=== PATIENT | male | born 1955 | race Caucasian/White ===

== ENCOUNTER 2018-06-07 00:58 | Emergency (ER) | payer OTHER ==
[2018-06-07] MEDS ORDERED: HYDROCODONE/CHLORPHEN 5 ML/OSYR ONE (01:42)
--- NOTE | 2018-06-07 02:27 | EDPHYS ---
Physician Documentation [facility] Name: Seng Godfrey Age: 63 yrs Sex: Male : 1955 Arrival Date: 06/07/2018 Time: 01:01 Bed 30 Private MD: Aron Gonzalez S ED Physician Cisco Torres HPI: 06/07 01:25 This 63 yrs old Male presents to ER via Ambulatory with complaints of Cough. jr8 01:25 The patient or guardian reports cough, that is intermittent, described as mild, with no jr8 sputum. Onset: The symptoms/episode began/occurred gradually, 2 day(s) ago. Severity of symptoms: At their worst the symptoms were mild, in the emergency department the symptoms are unchanged. Modifying factors: The symptoms are alleviated by nothing, the symptoms are aggravated by nothing. Associated signs and symptoms: Pertinent positives: rhinorrhea. The patient has not experienced similar symptoms in the past. The patient has not recently seen a physician. Historical: - Allergies: 01:20 Talwin; rv - Home Meds: 01:20 Seroquel 100 mg Oral tab [Active]; rv - PMHx: 01:20 chronic back pain; rv - PSHx: 01:20 None; rv - Immunization history:: Adult Immunizations up to date, Flu vaccine is up to date. - Social history:: Smoking status: Patient uses tobacco products, STOPPED 6 MONTHS AGO.. - Ebola Screening: : Patient negative for fever greater than or equal to 101.5 degrees Fahrenheit, and additional compatible Ebola Virus Disease symptoms Patient denies exposure to infectious person Patient denies travel to an Ebola-affected area in the 21 days before illness onset. ROS: 01:25 Eyes: Negative for injury, pain, redness, and discharge, Neck: Negative for injury, jr8 pain, and swelling, Cardiovascular: Negative for chest pain, palpitations, and edema, Abdomen/GI: Negative for abdominal pain, nausea, vomiting, diarrhea, and constipation, Back: Negative for injury and pain, MS/Extremity: Negative for injury and deformity, Skin: Negative for injury, rash, and discoloration, Neuro: Negative for headache, weakness, numbness, tingling, and seizure. 01:25 ENT: Positive for rhinorrhea. 01:25 Respiratory: Positive for cough, Negative for shortness of breath, sputum production, wheezing. Exam: 01:25 Eyes: Pupils equal round and reactive to light, extra-ocular motions intact. Lids and jr8 lashes normal. Conjunctiva and sclera are non-icteric and not injected. Cornea within normal limits. Periorbital areas with no swelling, redness, or edema. ENT: Nares patent. No nasal discharge, no septal abnormalities noted. Tympanic membranes are normal and external auditory canals are clear. Oropharynx with no redness, swelling, or masses, exudates, or evidence of obstruction, uvula midline. Mucous membranes moist. Neck: Trachea midline, no thyromegaly or masses palpated, and no cervical lymphadenopathy. Supple, full range of motion without nuchal rigidity, or vertebral point tenderness. No Meningismus. Cardiovascular: Regular rate and rhythm with a normal S1 and S2. No gallops, murmurs, or rubs. Normal PMI, no JVD. No pulse deficits. Respiratory: Lungs have equal breath sounds bilaterally, clear to auscultation and percussion. No rales, rhonchi or wheezes noted. No increased work of breathing, no retractions or nasal flaring. Abdomen/GI: Soft, non-tender, with normal bowel sounds. No distension or tympany. No guarding or rebound. No evidence of tenderness throughout. Back: No spinal tenderness. No costovertebral tenderness. Full range of motion. Skin: Warm, dry with normal turgor. Normal color with no rashes, no lesions, and no evidence of cellulitis. MS/ Extremity: Pulses equal, no cyanosis. Neurovascular intact. Full, normal range of motion. Neuro: Awake and alert, GCS 15, oriented to person, place, time, and situation. Cranial nerves II-XII grossly intact. Motor strength 5/5 in all extremities. Sensory grossly intact. Cerebellar exam normal. Normal gait. Vital Signs: 01:27 BP 112 / 72; Pulse 57; Resp 16; Temp 98(O); Pulse Ox 99% ; Weight 89.81 kg (R); rv 02:34 BP 101 / 68; Pulse 55; Resp 16; Pulse Ox 99% on R/A; rv MDM: 01:08 Patient medically screened. jr8 01:08 Patient medically screened. jr8 01:25 Data reviewed: vital signs, nurses notes, radiologic studies, plain films. Data jr8 interpreted: Pulse oximetry: on room air is 100 %. Interpretation: normal. Counseling: I had a detailed discussion with the patient and/or guardian regarding: the historical points, exam findings, and any diagnostic results supporting the discharge/admit diagnosis, radiology results, the need for outpatient follow up, a family practitioner, to return to the emergency department if symptoms worsen or persist or if there are any questions or concerns that arise at home. 06/07 01:25 Order name: XRAY Chest (1 view) jr8 Administered Medications: 01:37 Drug: Tussionex Pennkinetic ER 5 ml Route: PO; rv 02:34 Follow up: Response: Marked relief of symptoms rv Disposition: 15:53 Co-signature as Attending Physician, Cisco Torres MD I agree with the assessment and nathanael plan of care. Disposition: 06/07/18 02:26 Discharged to Home. Impression: Cough. - Condition is Stable. - Discharge Instructions: Cough, Adult. - Prescriptions for Guaifenesin AC 10- 100 mg/5 mL Oral Liquid - take 10 milliliter by ORAL route every 4 hours As needed; 240 milliliter. - Medication Reconciliation Form, Thank You Letter, Antibiotic Education, Prescription Opioid Use form. - Follow up: Aron Gonzalez MD; When: 1 week; Reason: Recheck today's complaints, Continuance of care, Re-evaluation by your physician. - Problem is new. - Symptoms have improved. Signatures: Dispatcher [employer] EDMA Cisco Torres MD MD cha Roszak, Josh, PA PA jr8 Will Michael, RN RN rv Corrections: (The following items were deleted from the chart) 02:35 02:26 06/07/2018 02:26 Discharged to Home. Impression: Cough. Condition is Stable. rv Forms are Medication Reconciliation Form, Thank You Letter, Antibiotic Education, Prescription Opioid Use. Follow up: Aron Gonzalez; When: 1 week; Reason: Recheck today's complaints, Continuance of care, Re-evaluation by your physician. Problem is new. Symptoms have improved. jr8
--- NOTE | 2018-06-07 02:27 | ER ---
Nurse's Notes [facility] Name: Seng Godfrey Age: 63 yrs Sex: Male : 1955 Arrival Date: 06/07/2018 Time: 01:01 Bed 30 Private MD: Aron Gonzalez S Diagnosis: Cough Presentation: 06/07 01:18 Presenting complaint: Patient states: PATIENT STATES: COUGH AND CONGESTION STARTED rv THREE DAYS AGO. DENIES FEVER. Transition of care: patient was not received from another setting of care. Onset of symptoms was June 04, 2018 at 08:00. Risk Assessment: Do you want to hurt yourself or someone else? Patient reports no desire to harm self or others. Initial Sepsis Screen: Does the patient meet any 2 criteria? No. Patient's initial sepsis screen is negative. Does the patient have a suspected source of infection? No. Patient's initial sepsis screen is negative. Care prior to arrival: None. 01:18 Method Of Arrival: Ambulatory rv 01:18 Acuity: MAU 4 rv Historical: - Allergies: 01:20 Talwin; rv - Home Meds: 01:20 Seroquel 100 mg Oral tab [Active]; rv - PMHx: 01:20 chronic back pain; rv - PSHx: 01:20 None; rv - Immunization history:: Adult Immunizations up to date, Flu vaccine is up to date. - Social history:: Smoking status: Patient uses tobacco products, STOPPED 6 MONTHS AGO.. - Ebola Screening: : Patient negative for fever greater than or equal to 101.5 degrees Fahrenheit, and additional compatible Ebola Virus Disease symptoms Patient denies exposure to infectious person Patient denies travel to an Ebola-affected area in the 21 days before illness onset. Screenin:29 Abuse screen: Denies threats or abuse. Denies injuries from another. Nutritional rv screening: No deficits noted. Tuberculosis screening: No symptoms or risk factors identified. Fall Risk None identified. Assessment: 01:27 General: Appears in no apparent distress. comfortable, Behavior is calm, cooperative. rv Pain: Denies pain. Neuro: Level of Consciousness is awake, alert, obeys commands, Oriented to person, place, time, situation. Cardiovascular: Capillary refill < 3 seconds. Respiratory: Reports cough that is non-productive, Airway is patent. GI: No signs and/or symptoms were reported involving the gastrointestinal system. : No signs and/or symptoms were reported regarding the genitourinary system. EENT: No signs and/or symptoms were reported regarding the EENT system. Derm: Skin is intact. Musculoskeletal: No signs and/or symptoms reported regarding the musculoskeletal system. Vital Signs: 01:27 BP 112 / 72; Pulse 57; Resp 16; Temp 98(O); Pulse Ox 99% ; Weight 89.81 kg (R); rv 02:34 BP 101 / 68; Pulse 55; Resp 16; Pulse Ox 99% on R/A; rv ED Course: 01:01 Patient arrived in ED. es 01:03 Aron Gonzalez MD is Private Physician. es 01:08 Per[facility] Rockwell [facility]. jr8 01:08 Cisco Torres MD is Attending Physician. jr8 01:19 Triage completed. rv 01:29 Arm band placed on right wrist. rv 01:29 Patient has correct armband on for positive identification. Bed in low position. Call rv light in reach. Side rails up X 1. Pulse ox on. NIBP on. 02:19 X-ray completed. Portable x-ray completed in exam room. Patient tolerated procedure kw well. 02:21 XRAY Chest (1 view) In Process Unspecified. EDMS 02:26 Aron Gonzalez MD is Referral Physician. jr8 02:34 No provider procedures requiring assistance completed. Patient did not have IV access rv during this emergency room visit. Administered Medications: 01:37 Drug: Tussionex Pennkinetic ER 5 ml Route: PO; rv 02:34 Follow up: Response: Marked relief of symptoms rv Outcome: 02:26 Discharge ordered by . jr8 02:35 Discharged to home ambulatory. rv 02:35 Condition: good 02:35 Discharge instructions given to patient, Instructed on discharge instructions, follow up and referral plans. medication usage, Demonstrated understanding of instructions, follow-up care, medications, Prescriptions given X 1. 02:35 Patient left the ED. rv Signatures: Dispatcher [employer] EDMS Adriana Daniels Kimberlee kw Roszak, Josh, PA PA jr8 Will Michael RN RN rv
[2018-06-07 02:52] VITALS: TEMP 98; O2SAT 99
[2018-06-07 02:54] VITALS: BP 101/68
--- NOTE | 2018-06-07 08:36 | RAD REPORT ---
EXAM DESCRIPTION: Ronnell Single View06/07/2018 2:22 am CLINICAL HISTORY: Cough COMPARISON: 2017 FINDINGS: The lungs appear clear of acute infiltrate. The heart is normal size IMPRESSION: No acute abnormalities displayed
== END 2018-06-07 02:35 | disposition home or self-care (01) ==
LOC: ER 00:58
DX: R05 Cough (principal); Z88.8 Allergy status to other drugs, medicaments and biological substances
CPT/HCPCS: 71045; 99284

== ENCOUNTER 2018-09-17 16:39 | Emergency (ER) | payer OTHER ==
--- OUTSIDE RECORDS SUMMARY | 2018-09-17 16:40 | XMS REPORT ---
:1955 [facility] Address [address] [place] [address] [address] [place] [address] Care Team Providers Name Role Phone Unavailable Unavailable Unavailable Problems This patient has no known problems. Allergies, Adverse Reactions, Alerts This patient has no known allergies or adverse reactions. Medications This patient has no known medications.
--- NOTE | 2018-09-17 17:07 | EDPHYS ---
Physician Documentation [facility] Name: Seng Godrfey Age: 63 yrs Sex: Male : 1955 Arrival Date: 09/17/2018 Time: 16:40 Bed Treatment Private MD: rAon Gonzalez S ED Physician Cisco Torres HPI: 09/17 17:05 This 63 yrs old Male presents to ER via Ambulatory with complaints of Finger kb Injury. 17:05 The patient has a laceration related to: cleaning and cut thumb on a broken plate kb occurred at home, and there are no complicating factors. The injury was accidental. The laceration(s) is(are) located on the dorsal aspect of distal phalanx of left thumb. Onset: The symptoms/episode began/occurred just prior to arrival. Associated signs and symptoms: Pertinent positives: heavy bleeding, Pertinent negatives: deformity, dizziness, loss of consciousness, numbness distal to injury, suspected foreign body. The patient has not experienced similar symptoms in the past. The patient has not recently seen a physician. Historical: - Allergies: 16:51 Talwin; tw2 - PMHx: 16:51 chronic back pain; tw2 - PSHx: 16:51 None; tw2 - Immunization history:: Last tetanus immunization: unknown. - Social history:: Smoking status: . - Ebola Screening: : Patient denies travel to an Ebola-affected area in the 21 days before illness onset. ROS: 17:04 Constitutional: Negative for fever, chills, and weight loss, Cardiovascular: Negative kb for chest pain, palpitations, and edema, Respiratory: Negative for shortness of breath, cough, wheezing, and pleuritic chest pain, Abdomen/GI: Negative for abdominal pain, nausea, vomiting, diarrhea, and constipation, MS/Extremity: Negative for injury and deformity, Neuro: Negative for headache, weakness, numbness, tingling, and seizure. 17:04 Skin: Positive for avulsion, of the dorsal aspect of distal phalanx of left thumb. Exam: 17:04 Constitutional: This is a well developed, well nourished patient who is awake, alert, kb and in no acute distress. Head/Face: Normocephalic, atraumatic. Neck: Trachea midline, no thyromegaly or masses palpated, and no cervical lymphadenopathy. Supple, full range of motion without nuchal rigidity, or vertebral point tenderness. No Meningismus. Chest/axilla: Normal chest wall appearance and motion. Nontender with no deformity. No lesions are appreciated. Cardiovascular: Regular rate and rhythm with a normal S1 and S2. No gallops, murmurs, or rubs. Normal PMI, no JVD. No pulse deficits. Respiratory: Lungs have equal breath sounds bilaterally, clear to auscultation and percussion. No rales, rhonchi or wheezes noted. No increased work of breathing, no retractions or nasal flaring. Abdomen/GI: Soft, non-tender, with normal bowel sounds. No distension or tympany. No guarding or rebound. No evidence of tenderness throughout. MS/ Extremity: Pulses equal, no cyanosis. Neurovascular intact. Full, normal range of motion. Neuro: Awake and alert, GCS 15, oriented to person, place, time, and situation. Cranial nerves II-XII grossly intact. Motor strength 5/5 in all extremities. Sensory grossly intact. Cerebellar exam normal. Normal gait. 17:04 Skin: injury, avulsion(s), a small 2 cm(s), of the dorsal aspect of distal phalanx of left thumb. Vital Signs: 16:50 BP 154 / 75; Pulse 65; Resp 17; Temp 97.9(TE); Pulse Ox 98% on R/A; Weight 92.08 kg tw2 (R); Pain 7/10; MDM: 16:55 Patient medically screened. kb 17:00 Data reviewed: vital signs, nurses notes. Data interpreted: Pulse oximetry: on room air kb is 98 %. Interpretation: normal. Counseling: I had a detailed discussion with the patient and/or guardian regarding: the historical points, exam findings, and any diagnostic results supporting the discharge/admit diagnosis, the need for outpatient follow up, a family practitioner, to return to the emergency department if symptoms worsen or persist or if there are any questions or concerns that arise at home. Administered Medications: 17:24 Drug: Tetanus-Diphtheria Toxoid Adult 0.5 ml {Rate Analyst: [employer]. Exp: aj1 03/14/2020. Lot #: [id number]. } Route: IM; Site: left deltoid; 17:41 Follow up: Response: No adverse reaction aj1 17:24 Drug: [place] (7.5 mg-325 mg) 1 tabs Route: PO; aj1 17:41 Follow up: Response: No adverse reaction aj1 Disposition: 09/18 07:15 Co-signature as Attending Physician, Cisco Torres MD I agree with the assessment and nathanael plan of care. Disposition: 09/17/18 17:06 Discharged to Home. Impression: avulsion laceration of left thumb. - Condition is Stable. - Discharge Instructions: Deep Skin Avulsion. - Prescriptions for Tylenol- Codeine #3 300-30 mg Oral Tablet - take 2 tablets by ORAL route every 6 hours As needed; 10 tablet. - Medication Reconciliation Form, Thank You Letter, Antibiotic Education, Prescription Opioid Use form. - Follow up: Emergency Department; When: As needed; Reason: Worsening of condition. Follow up: Private Physician; When: 2 - 3 days; Reason: Recheck today's complaints, Continuance of care, Re-evaluation by your physician. Signatures: Tonia Gonzalez, EVAPORATOR OPERATOR-C EVAPORATOR OPERATOR-Breann Brothers RN RN aj1 Cisco Torres MD MD cha Wise, Tara RN RN tw2 Corrections: (The following items were deleted from the chart) 09/17 18:01 17:06 09/17/2018 17:06 Discharged to Home. Impression: avulsion laceration of left aj1 thumb. Condition is Stable. Forms are Medication Reconciliation Form, Thank You Letter, Antibiotic Education, Prescription Opioid Use. Follow up: Emergency Department; When: As needed; Reason: Worsening of condition. Follow up: Private Physician; When: 2 - 3 days; Reason: Recheck today's complaints, Continuance of care, Re-evaluation by your physician. kb
--- NOTE | 2018-09-17 17:07 | ER ---
Nurse's Notes [facility] Name: Seng Godfrey Age: 63 yrs Sex: Male : 1955 Arrival Date: 09/17/2018 Time: 16:40 Bed Treatment Private MD: Aron Gonzalez S Diagnosis: avulsion laceration of left thumb Presentation: 09/17 16:48 Presenting complaint: Patient states: i was cleaning the microwave and the dish broke tw2 it cut the outside of my thumb on my LEFT hand about 3 hrs ago and then it started bleeding again. Transition of care: patient was not received from another setting of care. Onset of symptoms was September 17, 2018. Risk Assessment: Do you want to hurt yourself or someone else? Patient reports no desire to harm self or others. Initial Sepsis Screen: Does the patient meet any 2 criteria? No. Patient's initial sepsis screen is negative. Does the patient have a suspected source of infection? No. Patient's initial sepsis screen is negative. Care prior to arrival: None. 16:48 Method Of Arrival: Ambulatory tw2 16:48 Acuity: MAU 4 tw2 Triage Assessment: 16:51 General: Appears in no apparent distress. Behavior is anxious. Pain: Complains of pain tw2 in left hand. Musculoskeletal: Range of motion: intact in all extremities. Injury Description: Laceration sustained to dorsal aspect of distal phalanx of left thumb, dorsal aspect of proximal phalanx of left thumb, palmar aspect of distal phalanx of left thumb, palmar aspect of proximal phalanx of left thumb and left thumbnail. Historical: - Allergies: 16:51 Talwin; tw2 - PMHx: 16:51 chronic back pain; tw2 - PSHx: 16:51 None; tw2 - Immunization history:: Last tetanus immunization: unknown. - Social history:: Smoking status: . - Ebola Screening: : Patient denies travel to an Ebola-affected area in the 21 days before illness onset. Screenin:00 Abuse screen: Denies threats or abuse. Denies injuries from another. Nutritional aj1 screening: No deficits noted. Tuberculosis screening: No symptoms or risk factors identified. 18:01 Fall Risk None identified. aj1 Assessment: 17:00 General: Appears in no apparent distress. uncomfortable, Behavior is calm, cooperative, aj1 appropriate for age. Pain: Complains of pain in palmar aspect of proximal phalanx of left thumb and palmar aspect of distal phalanx of left thumb and dorsal aspect of proximal phalanx of left thumb and dorsal aspect of distal phalanx of left thumb. Neuro: Level of Consciousness is awake, alert, obeys commands. Cardiovascular: Patient's skin is warm and dry. Respiratory: Airway is patent Respiratory effort is even, unlabored, Respiratory pattern is regular, symmetrical. GI: No signs and/or symptoms were reported involving the gastrointestinal system. : No signs and/or symptoms were reported regarding the genitourinary system. EENT: No signs and/or symptoms were reported regarding the EENT system. Derm: Skin is pink, warm \T\ dry. normal. Musculoskeletal: Range of motion: intact in all extremities. Injury Description: Avulsion sustained to left thumb is partial was sustained 2-4 hours ago. Vital Signs: 16:50 BP 154 / 75; Pulse 65; Resp 17; Temp 97.9(TE); Pulse Ox 98% on R/A; Weight 92.08 kg tw2 (R); Pain 7/10; ED Course: 16:40 Patient arrived in ED. rg4 16:40 Aron Gonzalez MD is Private Physician. rg4 16:50 Triage completed. tw2 16:51 Arm band placed on. tw2 16:55 Tonia Gonzalez FNP-C [facility]. kb 16:55 Cisco Torres MD is Attending Physician. kb 17:00 Patient has correct armband on for positive identification. Bed in low position. Call aj1 light in reach. Side rails up X 1. 17:00 No provider procedures requiring assistance completed. Patient did not have IV access aj1 during this emergency room visit. 17:23 Breann Hobbs, RN is Primary Nurse. aj1 Administered Medications: 17:24 Drug: Tetanus-Diphtheria Toxoid Adult 0.5 ml {Psychology Assistant: [employer]. Exp: aj1 03/14/2020. Lot #: [id number]. } Route: IM; Site: left deltoid; 17:41 Follow up: Response: No adverse reaction aj1 17:24 Drug: [place] (7.5 mg-325 mg) 1 tabs Route: PO; aj1 17:41 Follow up: Response: No adverse reaction aj1 Outcome: 17:06 Discharge ordered by MD. hernandez 18:00 Discharged to home ambulatory. aj1 18:00 Condition: good 18:00 Discharge instructions given to patient, Instructed on discharge instructions, follow up and referral plans. no drinking with medication, no driving heavy equipment, medication usage, wound care, Demonstrated understanding of instructions, follow-up care, medications, wound care, Prescriptions given X 1. 18:01 Patient left the ED. aj1 Signatures: Tonia Gonzalez, WAITER/WAITRESS ROOM SERVICE-C WAITER/WAITRESS ROOM SERVICE-Breann Brothers, RN RN aj1 Renuka Guevara RN RN tw2 Ekaterina Thomas rg4
[2018-09-17] MEDS ORDERED: TETANUS & DIPHTHERIA TOX,ADULT 0.5 ML VIAL ONE (17:27)
[2018-09-18 06:52] VITALS: BP 154/75; TEMP 97.9; O2SAT 98
== END 2018-09-17 18:01 | disposition home or self-care (01) ==
LOC: ER 16:39
DX: S61.012A Laceration without foreign body of left thumb without damage to nail, initial encounter (principal); W45.8XXA Other foreign body or object entering through skin, initial encounter; Y93.E9 Activity, other interior property and clothing maintenance; Y92.000 Kitchen of unspecified non-institutional (private) residence as the place of occurrence of the external cause; Z23 Encounter for immunization; Z88.8 Allergy status to other drugs, medicaments and biological substances
CPT/HCPCS: 90714; 99283

== ENCOUNTER 2022-11-17 10:07 | Emergency (ER) | payer OTHER ==
--- OUTSIDE RECORDS SUMMARY | 2022-11-17 10:15 | XMS REPORT | Continuity of Care Document ---
:1955 Author Organization [facility] t Address [address] [facility] [address] [place] [address] Care Team Providers Name Role Phone Wagner Bell MD Primary Care Physician Wagner Bell MD Attending Clinician WAGNER BELL Attending Clinician Unavailable Doctor Unassigned, [place] Attending Clinician Unavailable Lab, Ang - Db Attending Clinician Unavailable Harmeet Mott MD Attending Clinician ALESSIA NOLASCO Attending Clinician Unavailable Alessia Pizarro Attending Clinician Jade Caro MD Attending Clinician Brandan Bazan DO Attending Clinician LEANDRO HARDIN Attending Clinician Unavailable Alexys Waggoner MD Attending Clinician ALEXYS WAGGONER Attending Clinician Unavailable 2, [facility] Attending Clinician Unavailable Payers Payer Name Policy Type Policy Number Effective Date Expiration Date Vik salcedo [facility] MEDIC[facility] [id number] 2018 COMPLETE CHOICE 00:00:00 Problems Condition Condition Condition Status Onset Resolution Last Treating Co mments Source Name Details Category Date Date Treatment Clinician Date Insomnia, Insomnia, Disease Active 2016-06 Uni vers unspecifie unspecifie 07-04 it y of d type d type 00:00: [place] 00 Medical Branch Chronic Chronic Disease Active 2016-06 Univers low back low back 07-04 ity of pain pain 00:00: [place] without without 00 Medical sciatica, sciatica, Bran ch unspecifie unspecifie d back d back pain pain laterality laterality Anxiety Anxiety Disease Active 2016-06 Univers 07-04 ity of 00:00: [place] 00 Medical Branch Erectile Erectile Disease Active 2016-06 Unive rs dysfunctio dysfunctio 07-04 it y of n, n, 00:00: [place] unspecifie unspecifie 00 Me dical d erectile d erectile Br anch dysfunctio dysfunctio n type n type Allergies, Adverse Reactions, Alerts Allergy Allergy Status Severity Reaction(s) Onset Inactive Treating Comm ents Source Name Type Date Date Clinician NO KNOWN Drug Active Univers ALLERGIE Class ity of S [facility] Social History Social Habit Start Date Stop Date Quantity Comments Source History of Occasional tobacco Univer sity of tobacco use smoker [facility] Exposure to 2022-09-23 2022-10-03 Not sure [facility] SARS-CoV-2 00:00:00 08:27:00 [facility] [place] [facility] (event) Branch Tobacco use and 2022-04-11 2022-04-11 Smokeless tobacco Un iversity of exposure 00:00:00 00:00:00 non-user [facility] Sex [birth year] Universit y of 00:00:00 00:00:00 [facility] Smoking Status Start Date Stop Date Source Occasional tobacco smoker 2022-04-11 00:00:00 Un iversity of [facility] Medications Ordered Filled Start Stop Current Ordering Indication Dosage Frequency Signature Comments Components Source Medication Medication Date Date Medication? Clinician (SIG) Name Name cefUROXime Yes [id number] 500mg Take 1 Univers 500 mg 6- tablet by ity of tablet 00:00: mouth in [place] 00 the Medical morning Branch and 1 tablet in the evening. bromphenira Yes [id number] 5mL Take 5 mL Univers mine-pseudo 6-01 by mouth 4 it y of ephedrine-D [place] times Medical DM) 2-30-10 daily as Bran ch mg/5 mL needed for syrup Cold symptoms. cefUROXime Yes [id number] 500mg Take 1 Univers 500 mg 6- tablet by ity of tablet 00:00: mouth in [place] 00 the Medical morning Branch and 1 tablet in the evening. bromphenira 0 Yes [id number] 5mL Take 5 mL [facility] mine-pseudo 6-01 by mouth 4 it y of ephedrine-D 00:00[place] (BROMF[place] 00 times Medical DM) 2-30-10 daily as Bran ch mg/5 mL needed for syrup Cold symptoms. ALPRAZolam Yes [id number] 1mg Take 1 Univers 1 mg tablet 4-18 tablet by ity of 00:00: mouth 3 (three) Medical times Branch daily as needed for Other (anxiety). zolpidem Yes [id number] 12.5mg Take 1 Univers 12.5 mg CR 4-18 tablet by ity of tablet 00:00: mouth at [place] 00 bedtime as Medical needed for Branch Sleep. ALPRAZolam Yes [id number] 1mg Take 1 Univers 1 mg tablet 4-18 tablet by ity of 00:00: mouth 3 (three) Medical times Branch daily as needed for Other (anxiety). zolpidem Yes [id number] 12.5mg Take 1 Univers 12.5 mg CR 4-18 tablet by ity of tablet 00:00: mouth at [place] 00 bedtime as Medical needed for Branch Sleep. ALPRAZolam Yes [id number] 1mg Take 1 Univers 1 mg tablet 4-18 tablet by ity of 00:00: mouth 3 00 (three) Medical times Branch daily as needed for Other (anxiety). zolpidem Yes [id number] 12.5mg Take 1 Univers 12.5 mg CR 4-18 tablet by ity of tablet 00:00: mouth at [place] 00 bedtime as Medical needed for Branch Sleep. ALPRAZolam Yes [id number] 1mg Take 1 Univers 1 mg tablet 4-18 tablet by ity of 00:00: mouth 3 [place] 00 (three) Medical times Branch daily as needed for Other (anxiety). zolpidem Yes [id number] 12.5mg Take 1 Univers 12.5 mg CR 4-18 tablet by ity of tablet 00:00: mouth at [place] 00 bedtime as Medical needed for Branch Sleep. ALPRAZolam Yes [id number] 1mg Take 1 Univers 1 mg tablet 4-18 tablet by ity of 00:00: mouth 3 [place] 00 (three) Medical times Branch daily as needed for Other (anxiety). zolpidem Yes [id number] 12.5mg Take 1 Univers 12.5 mg CR 4-18 tablet by ity of tablet 00:00: mouth at [place] 00 bedtime as Medical needed for Branch Sleep. ALPRAZolam Yes [id number] 1mg Take 1 Univers 1 mg tablet 4-18 tablet by ity of 00:00: mouth 3 (three) Medical times Branch daily as needed for Other (anxiety). zolpidem Yes [id number] 12.5mg Take 1 Univers 12.5 mg CR 4-18 tablet by ity of tablet 00:00: mouth at [place] 00 bedtime as Medical needed for Branch Sleep. ALPRAZolam Yes [id number] 1mg Take 1 Univers 1 mg tablet 4-18 tablet by ity of 00:00: mouth 3 (three) Medical times Branch daily as needed for Other (anxiety). zolpidem Yes [id number] 12.5mg Take 1 Univers 12.5 mg CR 4-18 tablet by ity of tablet 00:00: mouth at [place] 00 bedtime as Medical needed for Branch Sleep. ALPRAZolam Yes [id number] 1mg Take 1 Univers 1 mg tablet 4-18 tablet by ity of 00:00: mouth 3 (three) Medical times Branch daily as needed for Other (anxiety). zolpidem Yes [id number] 12.5mg Take 1 Univers 12.5 mg CR 4-18 tablet by ity of tablet 00:00: mouth at [place] 00 bedtime as Medical needed for Branch Sleep. ALPRAZolam Yes [id number] 1mg Take 1 Univers 1 mg tablet 4-18 tablet by ity of 00:00: mouth 3 00 (three) Medical times Branch daily as needed for Other (anxiety). zolpidem 2023-0 Yes [id number] 12.5mg Take 1 Univers 12.5 mg CR 4-18 tablet by ity of tablet 00:00: mouth at [place] 00 bedtime as Medical needed for Branch Sleep. ALPRAZolam Yes [id number] 1mg Take 1 Univers 1 mg tablet 4-18 tablet by ity of 00:00: mouth 3 [place] 00 (three) Medical times Branch daily as needed for Other (anxiety). zolpidem 2022- Yes [id number] 12.5mg Take 1 Univers 12.5 mg CR 4-18 tablet by ity of tablet 00:00: mouth at [place] 00 bedtime as Medical needed for Branch Sleep. ALPRAZolam Yes [id number] 1mg Take 1 Univers 1 mg tablet 4-18 tablet by ity of 00:00: mouth 3 [place] 00 (three) Medical times Branch daily as needed for Other (anxiety). zolpidem Yes [id number] 12.5mg Take 1 Univers 12.5 mg CR 4-18 tablet by ity of tablet 00:00: mouth at [place] 00 bedtime as Medical needed for Branch Sleep. traMADoL 50 2022-0 Yes TAKE 1 Univ ers mg tablet 3-26 TABLET BY ity o f 00:00: MOUTH [place] 00 EVERY 8 Medical HOURS Branch NEEDED ondansetron 2022-0 Yes TAKE 1 Univ ers 4 mg tablet 3-26 TABLET BY ity of 00:00: MOUTH [place] 00 EVERY 6 Medical HOURS Branch NEEDED diphenoxyla 2022-0 Yes TAKE 2 Univ ers te-atropine 3-26 TABLETS BY it y of 2.5-0.025 00:00: MOUTH [place] mg tablet 00 EVERY 6 Medical HOURS Branch NEEDED traMADoL 50 2022-0 Yes TAKE 1 Univ ers mg tablet 3-26 TABLET BY ity o f 00:00: MOUTH [place] 00 EVERY 8 Medical HOURS Branch NEEDED ondansetron 2022-0 Yes TAKE 1 Univ ers 4 mg tablet 3-26 TABLET BY ity of 00:00: MOUTH [place] 00 EVERY 6 Medical HOURS Branch NEEDED diphenoxyla 2022-0 Yes TAKE 2 Univ ers te-atropine 3-26 TABLETS BY it y of 2.5-0.025 00:00: MOUTH [place] mg tablet 00 EVERY 6 Medical HOURS Branch NEEDED traMADoL 50 2022-0 Yes TAKE 1 Univ ers mg tablet 3-26 TABLET BY ity o f 00:00: MOUTH [place] 00 EVERY 8 Medical HOURS Branch NEEDED ondansetron Yes TAKE 1 Univ ers 4 mg tablet 3-26 TABLET BY ity of 00:00: MOUTH [place] 00 EVERY 6 Medical HOURS Branch NEEDED diphenoxyla Yes TAKE 2 Univ ers te-atropine 3-26 TABLETS BY it y of 2.5-0.025 00:00: MOUTH [place] mg tablet 00 EVERY 6 Medical HOURS Branch NEEDED zolpidem 10 Yes [id number] 10mg Take 1 Univers mg tablet 3-20 tablet by ity o f 00:00: mouth at [place] 00 bedtime as Medical needed for Branch Insomnia. zolpidem 10 Yes [id number] 10mg Take 1 Univers mg tablet 3-20 tablet by ity o f 00:00: mouth at [place] 00 bedtime as Medical needed for Branch Insomnia. zolpidem 10 Yes [id number] 10mg Take 1 Univers mg tablet 3-20 tablet by ity o f 00:00: mouth at [place] 00 bedtime as Medical needed for Branch Insomnia. zolpidem 10 Yes [id number] 10mg Take 1 Univers mg tablet 3-20 tablet by ity o f 00:00: mouth at [place] 00 bedtime as Medical needed for Branch Insomnia. zolpidem 10 Yes [id number] 10mg Take 1 Univers mg tablet 3-20 tablet by ity o f 00:00: mouth at [place] 00 bedtime as Medical needed for Branch Insomnia. zolpidem 10 Yes [id number] 10mg Take 1 Univers mg tablet 3-20 tablet by ity o f 00:00: mouth at [place] 00 bedtime as Medical needed for Branch Insomnia. zolpidem 10 Yes [id number] 10mg Take 1 Univers mg tablet 3-20 tablet by ity o f 00:00: mouth at [place] 00 bedtime as Medical needed for Branch Insomnia. zolpidem 10 Yes [id number] 10mg Take 1 Univers mg tablet 3-20 tablet by ity o f 00:00: mouth at [place] 00 bedtime as Medical needed for Branch Insomnia. zolpidem 10 Yes [id number] 10mg Take 1 Univers mg tablet 3-20 tablet by ity o f 00:00: mouth at [place] 00 bedtime as Medical needed for Branch Insomnia. zolpidem 10 0 Yes [id number] 10mg Take 1 Univers mg tablet 3-20 tablet by ity o f 00:00: mouth at [place] 00 bedtime as Medical needed for Branch Insomnia. zolpidem 10 0 Yes [id number] 10mg Take 1 Univers mg tablet 3-20 tablet by ity o f 00:00: mouth at [place] 00 bedtime as Medical needed for Branch Insomnia. zolpidem 10 Yes [id number] 10mg Take 1 Univers mg tablet 3-20 tablet by ity o f 00:00: mouth at [place] 00 bedtime as Medical needed for Branch Insomnia. zolpidem 10 Yes [id number] 10mg Take 1 Univers mg tablet 3-20 tablet by ity o f 00:00: mouth at [place] 00 bedtime as Medical needed for Branch Insomnia. zolpidem 10 Yes [id number] 10mg Take 1 Univers mg tablet 3-20 tablet by ity o f 00:00: mouth at [place] 00 bedtime as Medical needed for Branch Insomnia. zolpidem 10 Yes [id number] 10mg Take 1 Univers mg tablet 3-20 tablet by ity o f 00:00: mouth at [place] 00 bedtime as Medical needed for Branch Insomnia. zolpidem 10 Yes [id number] 10mg Take 1 Univers mg tablet 3-20 tablet by ity o f 00:00: mouth at [place] 00 bedtime as Medical needed for Branch Insomnia. HYDROcodone Yes [id number] 1{tbl} Take 1 Un terrence -acetaminop 3-17 tablet by ity of hen 10-325 00:00: mouth [place] mg tablet 00 every 6 Medical (six) Branch hours as needed for Pain (scale 4-6). Indication s: chronic pain HYDROcodone Yes 2745 1{tbl} Take 1 Un terrence -acetaminop 3-17 tablet by ity of hen 10-325 00:00: mouth [place] mg tablet 00 every 6 Medical (six) Branch hours as needed for Pain (scale 4-6). Indication s: chronic pain HYDROcodone 2023-0 Yes 2745 1{tbl} Take 1 Un terrence -acetaminop 3-17 tablet by ity of hen 10-325 00:00: mouth [place] mg tablet 00 every 6 Medical (six) Branch hours as needed for Pain (scale 4-6). Indication s: chronic pain HYDROcodone 3-0 Yes 2745 1{tbl} Take 1 Un terrence -acetaminop 3-17 tablet by ity of hen 10-325 00:00: mouth [place] mg tablet 00 every 6 Medical (six) Branch hours as needed for Pain (scale 4-6). Indication s: chronic pain HYDROcodone 2022-0 Yes 2745 1{tbl} Take 1 Un terrence -acetaminop 3-17 tablet by ity of hen 10-325 00:00: mouth [place] mg tablet 00 every 6 Medical (six) Branch hours as needed for Pain (scale 4-6). Indication s: chronic pain HYDROcodone 2022-0 Yes 2745 1{tbl} Take 1 Un terrence -acetaminop 3-17 tablet by ity of hen 10-325 00:00: mouth [place] mg tablet 00 every 6 Medical (six) Branch hours as needed for Pain (scale 4-6). Indication s: chronic pain HYDROcodone 2022-0 Yes 2745 1{tbl} Take 1 Un terrence -acetaminop 3-17 tablet by ity of hen 10-325 00:00: mouth [place] mg tablet 00 every 6 Medical (six) Branch hours as needed for Pain (scale 4-6). Indication s: chronic pain HYDROcodone 2022-0 Yes 2745 1{tbl} Take 1 Un terrence -acetaminop 3-17 tablet by ity of hen 10-325 00:00: mouth [place] mg tablet 00 every 6 Medical (six) Branch hours as needed for Pain (scale 4-6). Indication s: chronic pain HYDROcodone 3-0 Yes 2745 1{tbl} Take 1 Un terrence -acetaminop 3-17 tablet by ity of hen 10-325 00:00: mouth [place] mg tablet 00 every 6 Medical (six) Branch hours as needed for Pain (scale 4-6). Indication s: chronic pain HYDROcodone 3-0 Yes 2745 1{tbl} Take 1 Un terrence -acetaminop 3-17 tablet by ity of hen 10-325 00:00: mouth [place] mg tablet 00 every 6 Medical (six) Branch hours as needed for Pain (scale 4-6). Indication s: chronic pain HYDROcodone 2023-0 Yes 2745 1{tbl} Take 1 Un terrence -acetaminop 3-17 tablet by ity of hen 10-325 00:00: mouth [place] mg tablet 00 every 6 Medical (six) Branch hours as needed for Pain (scale 4-6). Indication s: chronic pain HYDROcodone 2023-0 Yes 2745 1{tbl} Take 1 Un terrence -acetaminop 3-17 tablet by ity of hen 10-325 00:00: mouth [place] mg tablet 00 every 6 Medical (six) Branch hours as needed for Pain (scale 4-6). Indication s: chronic pain HYDROcodone 3-0 Yes 2745 1{tbl} Take 1 Un terrence -acetaminop 3-17 tablet by ity of hen 10-325 00:00: mouth [place] mg tablet 00 every 6 Medical (six) Branch hours as needed for Pain (scale 4-6). Indication s: chronic pain HYDROcodone 3-0 Yes 2745 1{tbl} Take 1 Un terrence -acetaminop 3-17 tablet by ity of hen 10-325 00:00: mouth [place] mg tablet 00 every 6 Medical (six) Branch hours as needed for Pain (scale 4-6). Indication s: chronic pain HYDROcodone 3-0 Yes 2745 1{tbl} Take 1 Un terrence -acetaminop 3-17 tablet by ity of hen 10-325 00:00: mouth [place] mg tablet 00 every 6 Medical (six) Branch hours as needed for Pain (scale 4-6). Indication s: chronic pain HYDROcodone 2023-0 Yes 2745 1{tbl} Take 1 Un terrence -acetaminop 3-17 tablet by ity of hen 10-325 00:00: mouth [place] mg tablet 00 every 6 Medical (six) Branch hours as needed for Pain (scale 4-6). Indication s: chronic pain HYDROcodone 2023-0 Yes 2745 1{tbl} Take 1 Un terrence -acetaminop 3-17 tablet by ity of hen 10-325 00:00: mouth [place] mg tablet 00 every 6 Medical (six) Branch hours as needed for Pain (scale 4-6). Indication s: chronic pain sildenafiL 0 Yes [id number] 8TK 1 T PO Univers (VIAGRA) 3-07 QD PRN ity of 100 mg 00:00: [place] tablet 00 Medical Branch sildenafiL 2022-0 Yes [id number] 8TK 1 T PO Univers (VIAGRA) 3-07 QD PRN ity of 100 mg 00:00: [place] tablet 00 Medical Branch sildenafiL 2022-0 Yes [id number] 8TK 1 T PO Univers (VIAGRA) 3-07 QD PRN ity of 100 mg 00:00: [place] tablet 00 Medical Branch sildenafiL 2022-0 Yes [id number] 8TK 1 T PO Univers (VIAGRA) 3-07 QD PRN ity of 100 mg 00:00: [place] tablet 00 Medical Branch sildenafiL 2022-0 Yes [id number] 8TK 1 T PO Univers (VIAGRA) 3-07 QD PRN ity of 100 mg 00:00: [place] tablet 00 Medical Branch sildenafiL 2022-0 Yes [id number] 8TK 1 T PO Univers (VIAGRA) 3-07 QD PRN ity of 100 mg 00:00: [place] tablet 00 Medical Branch sildenafiL 2022-0 Yes [id number] 8TK 1 T PO Univers (VIAGRA) 3-07 QD PRN ity of 100 mg 00:00: [place] tablet 00 Medical Branch sildenafiL 2022-0 Yes [id number] 1 T PO Univers (VIAGRA) 3-07 QD PRN ity of 100 mg 00:00: [place] tablet 00 Medical Branch sildenafiL 2022-0 Yes [id number] 8TK 1 T PO Univers (VIAGRA) 3-07 QD PRN ity of 100 mg 00:00: [place] tablet 00 Medical Branch sildenafiL 2022-0 Yes [id number] 8TK 1 T PO Univers (VIAGRA) 3-07 QD PRN ity of 100 mg 00:00: [place] tablet 00 Medical Branch sildenafiL 2022-0 Yes [id number] 1 T PO Univers (VIAGRA) 3-07 QD PRN ity of 100 mg 00:00: [place] tablet 00 Medical Branch sildenafiL 2022-0 Yes [id number] 8TK 1 T PO Univers (VIAGRA) 3-07 QD PRN ity of 100 mg 00:00: [place] tablet 00 Medical Branch sildenafiL Yes [id number] 8TK 1 T PO Univers (VIAGRA) 3-07 QD PRN ity of 100 mg 00:00: [place] tablet 00 Medical Branch sildenafiL 0 Yes [id number] 8TK 1 T PO Univers (VIAGRA) 3-07 QD PRN ity of 100 mg 00:00: [place] tablet 00 Medical Branch sildenafiL Yes [id number] 1 T PO Univers (VIAGRA) 3-07 QD PRN ity of 100 mg 00:00: [place] tablet 00 Medical Branch sildenafiL Yes [id number] 8TK 1 T PO Univers (VIAGRA) 3-07 QD PRN ity of 100 mg 00:00: [place] tablet 00 Medical Branch sildenafiL Yes [id number] 1 T PO Univers (VIAGRA) 3-07 QD PRN ity of 100 mg 00:00: [place] tablet 00 Medical Branch sildenafiL Yes [id number] 8TK 1 T PO Univers (VIAGRA) 3-07 QD PRN ity of 100 mg 00:00: [place] tablet 00 Medical Branch HYDROcodone Yes 2745 1{tbl} Take 1 Un terrence -acetaminop 2-20 tablet by ity of hen 10-325 00:00: mouth [place] mg tablet 00 every 6 Medical (six) Branch hours as needed for Pain (scale 4-6). Indication s: chronic pain zolpidem 10 Yes [id number] 10mg Take 1 Univers mg tablet 2-20 tablet by ity o f 00:00: mouth at [place] 00 bedtime as Medical needed for Branch Insomnia. ALPRAZolam Yes [id number] 1mg Take 1 Univers 1 mg tablet 2-20 tablet by ity of 00:00: mouth 3 [place] 00 (three) Medical times Branch daily as needed for Other (anxiety). HYDROcodone Yes 2745 1{tbl} Take 1 Un terrence -acetaminop 2-20 tablet by ity of hen 10-325 00:00: mouth [place] mg tablet 00 every 6 Medical (six) Branch hours as needed for Pain (scale 4-6). Indication s: chronic pain zolpidem 10 Yes [id number] 10mg Take 1 Univers mg tablet 2-20 tablet by ity o f 00:00: mouth at [place] 00 bedtime as Medical needed for Branch Insomnia. ALPRAZolam Yes [id number] 1mg Take 1 Univers 1 mg tablet 2-20 tablet by ity of 00:00: mouth 3 [place] 00 (three) Medical times Branch daily as needed for Other (anxiety). HYDROcodone Yes 2745 1{tbl} Take 1 Un terrence -acetaminop 2-20 tablet by ity of hen 10-325 00:00: mouth [place] mg tablet 00 every 6 Medical (six) Branch hours as needed for Pain (scale 4-6). Indication s: chronic pain zolpidem 10 Yes [id number] 10mg Take 1 Univers mg tablet 2-20 tablet by ity o f 00:00: mouth at [place] 00 bedtime as Medical needed for Branch Insomnia. ALPRAZolam Yes [id number] 1mg Take 1 Univers 1 mg tablet 2-20 tablet by ity of 00:00: mouth 3 [place] 00 (three) Medical times Branch daily as needed for Other (anxiety). zolpidem 10 Yes [id number] 10mg Take 1 Univers mg tablet 2-20 tablet by ity o f 00:00: mouth at [place] 00 bedtime as Medical needed for Branch Insomnia. ALPRAZolam Yes [id number] 1mg Take 1 Univers 1 mg tablet 2-20 tablet by ity of 00:00: mouth 3 [place] 00 (three) Medical times Branch daily as needed for Other (anxiety). HYDROcodone 0 Yes 2745 1{tbl} Take 1 Un terrence -acetaminop 2-20 tablet by ity of hen 10-325 00:00: mouth [place] mg tablet 00 every 6 Medical (six) Branch hours as needed for Pain (scale 4-6). Indication s: chronic pain zolpidem 10 Yes [id number] 10mg Take 1 Univers mg tablet 2-20 tablet by ity o f 00:00: mouth at [place] 00 bedtime as Medical needed for Branch Insomnia. ALPRAZolam Yes [id number] 1mg Take 1 Univers 1 mg tablet 2-20 tablet by ity of 00:00: mouth 3 00 (three) Medical times Branch daily as needed for Other (anxiety). HYDROcodone Yes 2745 1{tbl} Take 1 Un terrence -acetaminop 2-20 tablet by ity of hen 10-325 00:00: mouth [place] mg tablet 00 every 6 Medical (six) Branch hours as needed for Pain (scale 4-6). Indication s: chronic pain zolpidem 10 0 Yes [id number] 10mg Take 1 Univers mg tablet 2-20 tablet by ity o f 00:00: mouth at [place] 00 bedtime as Medical needed for Branch Insomnia. ALPRAZolam Yes [id number] 1mg Take 1 Univers 1 mg tablet 2-20 tablet by ity of 00:00: mouth 3 00 (three) Medical times Branch daily as needed for Other (anxiety). ALPRAZolam Yes [id number] 1mg Take 1 Univers 1 mg tablet 2-20 tablet by ity of 00:00: mouth 3 00 (three) Medical times Branch daily as needed for Other (anxiety). ALPRAZolam Yes [id number] 1mg Take 1 Univers 1 mg tablet 2-20 tablet by ity of 00:00: mouth 3 [place] 00 (three) Medical times Branch daily as needed for Other (anxiety). ALPRAZolam Yes [id number] 1mg Take 1 Univers 1 mg tablet 2-20 tablet by ity of 00:00: mouth 3 00 (three) Medical times Branch daily as needed for Other (anxiety). ALPRAZolam Yes [id number] 1mg Take 1 Univers 1 mg tablet 2-20 tablet by ity of 00:00: mouth 3 00 (three) Medical times Branch daily as needed for Other (anxiety). ALPRAZolam 0 Yes [id number] 1mg Take 1 Univers 1 mg tablet 2-20 tablet by ity of 00:00: mouth 3 [place] 00 (three) Medical times Branch daily as needed for Other (anxiety). ALPRAZolam 2022- No [id number] 1mg Take 1 Univers 1 mg tablet 2-20 04-18 tablet by it y of 00:00: 00:00 mouth 3 [place] 00 :00 (three) Medical times Branch daily as needed for Other (anxiety). ALPRAZolam 2022- No [id number] 1mg Take 1 Univers 1 mg tablet 2-20 -18 tablet by it y of 00:00: 00:00 mouth 3 [place] 00 :00 (three) Medical times Branch daily as needed for Other (anxiety). zolpidem 10 2022- No [id number] 10mg Take 1 Univers mg tablet 2-20 -20 tablet by ity of 00:00: 00:00 mouth at [place] 00 :00 bedtime as Medical needed for Branch Insomnia. HYDROcodone 2022- No 2745 1{tbl} Take 1 U nivers -acetaminop 2-20 03-17 tablet by it y of hen 10-325 00:00: 00:00 mouth [place] mg tablet 00 :00 every 6 Medical (six) Branch hours as needed for Pain (scale 4-6). Indication s: chronic pain HYDROcodone 2022- No 2745 1{tbl} Take 1 U nivers -acetaminop 2-20 02-20 tablet by it y of hen 10-325 00:00: 00:00 mouth [place] mg tablet 00 :00 every 6 Medical (six) Branch hours as needed for Pain (scale 4-6). Indication s: chronic pain HYDROcodone Yes 2745 1{tbl} Take 1 Un terrence -acetaminop 1-19 tablet by ity of hen 10-325 00:00: mouth [place] mg tablet 00 every 6 Medical (six) Branch hours as needed for Pain (scale 4-6). Indication s: chronic pain zolpidem 10 Yes [id number] 10mg Take 1 Univers mg tablet 1-19 tablet by ity o f 00:00: mouth at [place] 00 bedtime as Medical needed for Branch Insomnia. HYDROcodone Yes 2745 1{tbl} Take 1 Un terrence -acetaminop 1-19 tablet by ity of hen 10-325 00:00: mouth [place] mg tablet 00 every 6 Medical (six) Branch hours as needed for Pain (scale 4-6). Indication s: chronic pain zolpidem 10 2022- No [id number] 10mg Take 1 Univers mg tablet 07-06-20 tablet by ity of 00:00: 00:00 mouth at [place] 00 :00 bedtime as Medical needed for Branch Insomnia. HYDROcodone 2022- No 2745 1{tbl} Take 1 U nivers -acetaminop 1- 02-20 tablet by it y of hen 10-325 00:00: 00:00 mouth [place] mg tablet 00 :00 every 6 Medical (six) Branch hours as needed for Pain (scale 4-6). Indication s: chronic pain zolpidem 10 2022- No [id number] 10mg Take 1 Univers mg tablet 07-06-20 tablet by ity of 00:00: 00:00 mouth at [place] 00 :00 bedtime as Medical needed for Branch Insomnia. HYDROcodone 2022- No 2745 1{tbl} Take 1 U nivers -acetaminop 07-06-20 tablet by it y of hen 10-325 00:00: 00:00 mouth [place] mg tablet 00 :00 every 6 Medical (six) Branch hours as needed for Pain (scale 4-6). Indication s: chronic pain cefUROXime 2023-0 Yes [id number] 500mg Take 1 [facility] 500 mg 1-12 tablet by ity of tablet 00:00: mouth in [place] [address] the Medical morning Branch and 1 tablet in the evening. cefUROXime 2023-0 Yes [id number] 500mg Take 1 [facility] 500 mg 1-12 tablet by ity of tablet 00:00: mouth in [place] the Medical morning Branch and 1 tablet in the evening. cefUROXime 2023-0 Yes [id number] 500mg Take 1 [facility] 500 mg 1-12 tablet by ity of tablet 00:00: mouth in [place] [address] the Medical morning Branch and 1 tablet in the evening. cefUROXime 2023-0 Yes [id number] 500mg Take 1 [facility] 500 mg 1-12 tablet by ity of tablet 00:00: mouth in [place] [address] the Medical morning Branch and 1 tablet in the evening. cefUROXime 2023-0 Yes [id number] 500mg Take 1 [facility] 500 mg 1-12 tablet by ity of tablet 00:00: mouth in [place] [address] the Medical morning Branch and 1 tablet in the evening. cefUROXime 2023-0 Yes [id number] 500mg Take 1 [facility] 500 mg 1-12 tablet by [facility] of tablet 00:00: mouth in [place] [address] the Medical morning Homeland and 1 tablet in the evening. cefUROXime 2023-0 Yes [id number] 500mg Take 1 [facility] 500 mg 1-12 tablet by ity of tablet 00:00: mouth in [place] [address] the Medical morning [facility] and 1 tablet in the evening. cefUROXime 2023-0 Yes [id number] 500mg Take 1 [facility] 500 mg 1-12 tablet by ity of tablet 00:00: mouth in [place] [address] the Medical morning [facility] and 1 tablet in the evening. cefUROXime 2023-0 Yes [id number] 500mg Take 1 [facility] 500 mg 1-12 tablet by ity of tablet 00:00: mouth in [address] morning Homeland and 1 tablet in the evening. cefUROXime 2023-0 Yes [id number] 500mg Take 1 [facility] 500 mg 1-12 tablet by ity of tablet 00:00: mouth in [address] morning Homeland and 1 tablet in the evening. cefUROXime 2023-0 Yes [id number] 500mg Take 1 [facility] 500 mg 1-12 tablet by ity of tablet 00:00: mouth in [address] morning Homeland and 1 tablet in the evening. cefUROXime 2023-0 Yes [id number] 500mg Take 1 [facility] 500 mg 1-12 tablet by ity of tablet 00:00: mouth in [address] morning Homeland and 1 tablet in the evening. cefUROXime 2023-0 Yes [id number] 500mg Take 1 [facility] 500 mg 1-12 tablet by ity of tablet 00:00: mouth in [address] morning Homeland and 1 tablet in the evening. cefUROXime 2023-0 Yes [id number] 500mg Take 1 [facility] 500 mg 1-12 tablet by ity of tablet 00:00: mouth in [address] morning Homeland and 1 tablet in the evening. cefUROXime 2023-0 Yes [id number] 500mg Take 1 [facility] 500 mg 1-12 tablet by ity of tablet 00:00: mouth in [address] morning Homeland and 1 tablet in the evening. cefUROXime 2023-0 Yes [id number] 500mg Take 1 [facility] 500 mg 1-12 tablet by ity of tablet 00:00: mouth in [address] morning Branch and 1 tablet in the evening. cefUROXime 2023-0 Yes [id number] 500mg Take 1 [facility] 500 mg 1-12 tablet by ity of tablet 00:00: mouth in [place] 00 the Medical morning Branch and 1 tablet in the evening. cefUROXime 2023-0 Yes [id number] 500mg Take 1 [facility] 500 mg 1-12 tablet by ity of tablet 00:00: mouth in [place] [address] the Medical morning Branch and 1 tablet in the evening. cefUROXime 2023-0 Yes [id number] 500mg Take 1 [facility] 500 mg 1-12 tablet by ity of tablet 00:00: mouth in [place] [address] the Medical morning Branch and 1 tablet in the evening. cefUROXime 2023-0 Yes [id number] 500mg Take 1 [facility] 500 mg 1-12 tablet by ity of tablet 00:00: mouth in [place] [address] the Medical morning Branch and 1 tablet in the evening. cefUROXime 2023-0 Yes [id number] 500mg Take 1 [facility] 500 mg 1-12 tablet by ity of tablet 00:00: mouth in [place] [address] the Medical morning Branch and 1 tablet in the evening. cefUROXime 2023-0 Yes [id number] 500mg Take 1 [facility] 500 mg 1-12 tablet by ity of tablet 00:00: mouth in [place] [address] the Medical morning [facility] and 1 tablet in the evening. cefUROXime 2023-0 Yes [id number] 500mg Take 1 [facility] 500 mg 1-12 tablet by ity of tablet 00:00: mouth in [place] [address] the [facility] morning Homeland and 1 tablet in the evening. cefUROXime 2023-0 Yes [id number] 500mg Take 1 [facility] 500 mg 1-12 tablet by ity of tablet 00:00: mouth in [place] [address] the Medical morning Branch and 1 tablet in the evening. cefUROXime 2023-0 Yes [id number] 500mg Take 1 [facility] 500 mg 1-12 tablet by ity of tablet 00:00: mouth in [place] [address] the Medical morning [facility] and 1 tablet in the evening. cefUROXime 2023-0 Yes [id number] 500mg Take 1 [facility] 500 mg 1-12 tablet by ity of tablet 00:00: mouth in [place] [address] the [facility] morning Homeland and 1 tablet in the evening. cefUROXime 2023-0 Yes [id number] 500mg Take 1 [facility] 500 mg 1-12 tablet by ity of tablet 00:00: mouth in [place] 00 the Medical morning Branch and 1 tablet in the evening. cefUROXime 2023-0 Yes [id number] 500mg Take 1 [facility] 500 mg 1-12 tablet by ity of tablet 00:00: mouth in [place] 00 the Medical morning Branch and 1 tablet in the evening. cefUROXime 2023-0 Yes [id number] 500mg Take 1 [facility] 500 mg 1-12 tablet by ity of tablet 00:00: mouth in [place] 00 the Medical morning Branch and 1 tablet in the evening. cefUROXime 2023-0 Yes [id number] 500mg Take 1 [facility] 500 mg 1-12 tablet by ity of tablet 00:00: mouth in [place] 00 the Medical morning Branch and 1 tablet in the evening. hydrocodone 2023-0 2023- No 5mL Take 5 mL [facility] -chlorpheni 1-12 -20 by mouth ity of ramine 00:00: 05:59 every 12 [place] (TUSSIONEX 00 :00 (twelve) Medic al PENNKINETIC hours as Bran ch ER) 10-8 needed for mg/5 mL Cough for suspension up to 7 days. Indication s: cough hydrocodone 2023-0 2023- No 5mL Take 5 mL [facility] -chlorpheni 1-12 -20 by mouth ity of ramine 00:00: 05:59 every 12 [place] (TUSSIONEX 00 :00 (twelve) Medic al PENNKINETIC hours as Bran ch ER) 10-8 needed for mg/5 mL Cough for suspension up to 7 days. Indication s: cough hydrocodone 2023-0 2023- No 5mL Take 5 mL [facility] -chlorpheni 1-12 -20 by mouth ity of ramine 00:00: 05:59 every 12 [place] (TUSSIONEX 00 :00 (twelve) Medic al PENNKINETIC hours as Bran ch ER) 10-8 needed for mg/5 mL Cough for suspension up to 7 days. Indication s: cough hydrocodone 2023-0 2023- No 5mL Take 5 mL [facility] -chlorpheni 1-12 -20 by mouth ity of ramine 00:00: 05:59 every 12 [place] (TUSSIONEX 00 :00 (twelve) Medic al PENNKINETIC hours as Bran ch ER) 10-8 needed for mg/5 mL Cough for suspension up to 7 days. Indication s: cough hydrocodone 2023-0 2023- No 5mL Take 5 mL [facility] -chlorpheni 06-2920 by mouth ity of ramine 00:00: 05:59 every 12 [place] (TUSSIONEX 00 :00 (twelve) Medic al PENNKINETIC hours as Bran ch ER) 10-8 needed for mg/5 mL Cough for suspension up to 7 days. Indication s: cough hydrocodone 2022-0 2022- No 5mL Take 5 mL [facility] -chlorpheni 06-2920 by mouth ity of ramine 00:00: 05:59 every 12 [place] (TUSSIONEX 00 :00 (twelve) Medic al PENNKINETIC hours as Bran ch ER) 10-8 needed for mg/5 mL Cough for suspension up to 7 days. Indication s: cough hydrocodone 2022- No 5mL Take 5 mL [facility] -chlorpheni 06-29 by mouth ity of ramine 00:00: 05:59 every 12 [place] (TUSSIONEX 00 :00 (twelve) Medic al PENNKINETIC hours as Bran ch ER) 10-8 needed for mg/5 mL Cough for suspension up to 7 days. Indication s: cough hydrocodone 2022- No 5mL Take 5 mL [facility] -chlorpheni 06-29 by mouth ity of ramine 00:00: 05:59 every 12 [place] (TUSSIONEX 00 :00 (twelve) Medic al PENNKINETIC hours as Bran ch ER) 10-8 needed for mg/5 mL Cough for suspension up to 7 days. Indication s: cough zolpidem 10 2021-06 Yes [id number] 10mg Take 1 [facility] mg tablet 2-22 tablet by ity o f 00:00: mouth at [place] 00 bedtime as Medical needed for Branch Insomnia. HYDROcodone 2021-06 Yes [id number] 1{tbl} Take 1 [facility] -acetaminop 2-22 tablet by ity of hen 10-325 00:00: mouth [place] mg tablet 00 every 6 Medical (six) Branch hours as needed for Pain (scale 4-6). Indication s: chronic pain ALPRAZolam 2021-06 Yes [id number] 1mg Take 1 [facility] 1 mg tablet 2-22 tablet by ity of 00:00: mouth 3 [place] 00 (three) Medical times Branch daily as needed for Other (anxiety). zolpidem 2021-06 Yes [id number] 10mg Take 1 [facility] mg tablet 2-22 tablet by ity o f 00:00: mouth at [place] 00 bedtime as Medical needed for Branch Insomnia. HYDROcodone 2021-06 Yes [id number] 1{tbl} Take 1 [facility] -acetaminop 2-22 tablet by ity of hen 10-325 00:00: mouth [place] mg tablet 00 every 6 Medical (six) Branch hours as needed for Pain (scale 4-6). Indication s: chronic pain ALPRAZolam 2021-06 Yes [id number] 1mg Take 1 [facility] 1 mg tablet 2-22 tablet by ity of 00:00: mouth 3 [place] 00 (three) Medical times Branch daily as needed for Other (anxiety). zolpidem 2021-06 Yes [id number] 10mg Take 1 [facility] mg tablet 2-22 tablet by ity o f 00:00: mouth at [place] 00 bedtime as Medical needed for Branch Insomnia. HYDROcodone 2021-06 Yes [id number] 1{tbl} Take 1 [facility] ter[facility] -acetaminop 2-22 tablet by ity of hen 10-325 00:00: mouth [place] mg tablet 00 every 6 Medical (six) Branch hours as needed for Pain (scale 4-6). Indication s: chronic pain ALPRAZolam 2021-06 Yes [id number] 1mg Take 1 [facility] 1 mg tablet 2-22 tablet by ity of 00:00: mouth 3 [place] 00 (three) Medical times Branch daily as needed for Other (anxiety). zolpidem 2021-06 Yes [id number] 10mg Take 1 [facility] mg tablet 2-22 tablet by ity o f 00:00: mouth at [place] 00 bedtime as Medical needed for Branch Insomnia. HYDROcodone 2021-06 Yes [id number] 1{tbl} Take 1 Un ter[facility] -acetaminop 2-22 tablet by ity of hen 10-325 00:00: mouth [place] mg tablet 00 every 6 Medical (six) Branch hours as needed for Pain (scale 4-6). Indication s: chronic pain ALPRAZolam 2021-06 Yes [id number] 1mg Take 1 [facility] 1 mg tablet 2-22 tablet by ity of 00:00: mouth 3 [place] 00 (three) Medical times Branch daily as needed for Other (anxiety). zolpidem 2021-06 Yes [id number] 10mg Take 1 [facility] mg tablet 2-22 tablet by ity o f 00:00: mouth at [place] 00 bedtime as Medical needed for Branch Insomnia. HYDROcodone 2021-06 Yes [id number] 1{tbl} Take 1 [facility] ter[facility] -acetaminop 2-22 tablet by ity of hen 10-325 00:00: mouth [place] mg tablet 00 every 6 Medical (six) Branch hours as needed for Pain (scale 4-6). Indication s: chronic pain ALPRAZolam 2021-06 Yes [id number] 1mg Take 1 [facility] 1 mg tablet 2-22 tablet by ity of 00:00: mouth 3 [place] 00 (three) Medical times Branch daily as needed for Other (anxiety). zolpidem 2021-06 Yes [id number] 10mg Take 1 [facility] mg tablet 2-22 tablet by ity o f 00:00: mouth at [place] 00 bedtime as Medical needed for Branch Insomnia. HYDROcodone 2021-06 Yes [id number] 1{tbl} Take 1 Un ter[facility] -acetaminop 2-22 tablet by ity of hen 10-325 00:00: mouth [place] mg tablet 00 every 6 Medical (six) Branch hours as needed for Pain (scale 4-6). Indication s: chronic pain ALPRAZolam 2021-06 Yes [id number] 1mg Take 1 [facility] 1 mg tablet 2-22 tablet by ity of 00:00: mouth 3 [place] 00 (three) Medical times Branch daily as needed for Other (anxiety). zolpidem 2021-06 Yes [id number] 10mg Take 1 [facility] mg tablet 2-22 tablet by ity o f 00:00: mouth at [place] 00 bedtime as Medical needed for Branch Insomnia. HYDROcodone 2021-06 Yes [id number] 1{tbl} Take 1 Un ter[facility] -acetaminop 2-22 tablet by ity of hen 10-325 00:00: mouth [place] mg tablet 00 every 6 Medical (six) Branch hours as needed for Pain (scale 4-6). Indication s: chronic pain ALPRAZolam 2021-06 Yes [id number] 1mg Take 1 [facility] 1 mg tablet 2-22 tablet by ity of 00:00: mouth 3 [place] 00 (three) Medical times Branch daily as needed for Other (anxiety). zolpidem 10 2021-06 Yes [id number] 10mg Take 1 [facility] mg tablet 2-22 tablet by ity o f 00:00: mouth at [place] 00 bedtime as Medical needed for Branch Insomnia. HYDROcodone 2021-06 Yes [id number] 1{tbl} Take 1 [facility] ter[facility] -acetaminop 2-22 tablet by ity of hen 10-325 00:00: mouth [place] mg tablet 00 every 6 Medical (six) Branch hours as needed for Pain (scale 4-6). Indication s: chronic pain ALPRAZolam 2021-06 Yes [id number] 1mg Take 1 [facility] 1 mg tablet 2-22 tablet by ity of 00:00: mouth 3 [place] 00 (three) Medical times Branch daily as needed for Other (anxiety). zolpidem 10 2021-06 Yes [id number] 10mg Take 1 [facility] mg tablet 2-22 tablet by ity o f 00:00: mouth at [place] 00 bedtime as Medical needed for Branch Insomnia. ALPRAZolam 2021-06 Yes [id number] 1mg Take 1 [facility] 1 mg tablet 2-22 tablet by ity of 00:00: mouth 3 [place] 00 (three) Medical times Branch daily as needed for Other (anxiety). ALPRAZolam 2021-06 Yes [id number] 1mg Take 1 [facility] 1 mg tablet 2-22 tablet by ity of 00:00: mouth 3 [place] 00 (three) Medical times Branch daily as needed for Other (anxiety). ALPRAZolam 2021-06 No [id number] 1mg Take 1 [facility] 1 mg tablet 2-22 02-20 tablet by it y of 00:00: 00:00 mouth 3 [place] 00 :00 (three) Medical times Branch daily as needed for Other (anxiety). ALPRAZolam 2021-06- No [id number] 1mg Take 1 [facility] 1 mg tablet 2-22 02-20 tablet by it y of 00:00: 00:00 mouth 3 [place] 00 :00 (three) Medical times Branch daily as needed for Other (anxiety). HYDROcodone 2021-06- No [id number] 1{tbl} Take 1 U nivers -acetaminop 2-22 01-19 tablet by it y of hen 10-325 00:00: 00:00 mouth [place] mg tablet 00 :00 every 6 Medical (six) Branch hours as needed for Pain (scale 4-6). Indication s: chronic pain zolpidem 10 2021-063- No [id number] 10mg Take 1 [facility] mg tablet 08-09 tablet by ity of 00:00: 00:00 mouth at [place] 00 :00 bedtime as Medical needed for Branch Insomnia. bromphenira 2021-06 Yes [id number] 5mL Take 5 mL [facility] mine-pseudo 2-19 by mouth 4 it y of ephedrine-D 00:00: (four) [place] (BROMFED 00 times Medical DM) 2-30-10 daily as Bran ch mg/5 mL needed for syrup Congestion /Allergies . bromphenira 2021-06 Yes [id number] 5mL Take 5 mL [facility] mine-pseudo 2-19 by mouth 4 it y of ephedrine-D 00:00: (four) [place] (BROMFED 00 times Medical DM) 2-30-10 daily as Bran ch mg/5 mL needed for syrup Congestion /Allergies . bromphenira 2021-06 Yes [id number] 5mL Take 5 mL [facility] mine-pseudo 2-19 by mouth 4 it y of ephedrine-D 00:00: (four) [place] (BROMFED 00 times Medical DM) 2-30-10 daily as Bran ch mg/5 mL needed for syrup Congestion /Allergies . bromphenira 2021-06 Yes [id number] 5mL Take 5 mL [facility] mine-pseudo 2-19 by mouth 4 it y of ephedrine-D 00:00: (four) [place] (BROMFED 00 times Medical DM) 2-30-10 daily as Bran ch mg/5 mL needed for syrup Congestion /Allergies . bromphenira 2021-06 Yes [id number] 5mL Take 5 mL [facility] mine-pseudo 2-19 by mouth 4 it y of ephedrine-D 00:00: (four) [place] (BROMFED 00 times Medical DM) 2-30-10 daily as Bran ch mg/5 mL needed for syrup Congestion /Allergies . bromphenira 2021-06 Yes [id number] 5mL Take 5 mL [facility] mine-pseudo 2-19 by mouth 4 it y of ephedrine-D 00:00: (four) [place] (BROMFED 00 times Medical DM) 2-30-10 daily as Bran ch mg/5 mL needed for syrup Congestion /Allergies . bromphenira 2021-06 Yes [id number] 5mL Take 5 mL [facility] mine-pseudo 2-19 by mouth 4 it y of ephedrine-D 00:00: (four) [place] (BROMFED 00 times Medical DM) 2-30-10 daily as Bran ch mg/5 mL needed for syrup Congestion /Allergies . bromphenira 2021-06 Yes [id number] 5mL Take 5 mL [facility] mine-pseudo 2-19 by mouth 4 it y of ephedrine-D 00:00: (four) [place] M (BROMFED 00 times Medical DM) 2-30-10 daily as Bran ch mg/5 mL needed for syrup Congestion /Allergies . bromphenira 2021-06 Yes [id number] 5mL Take 5 mL [facility] mine-pseudo 2-19 by mouth 4 it y of ephedrine-D 00:00: (four) [place] M (BROMFED 00 times Medical DM) 2-30-10 daily as Bran ch mg/5 mL needed for syrup Congestion /Allergies . bromphenira 2021-06 Yes [id number] 5mL Take 5 mL [facility] mine-pseudo 2-19 by mouth 4 it y of ephedrine-D 00:00: (four) [place] (BROMFED 00 times Medical DM) 2-30-10 daily as Bran ch mg/5 mL needed for syrup Congestion /Allergies . bromphenira 2021-06 Yes [id number] 5mL Take 5 mL [facility] mine-pseudo 2-19 by mouth 4 it y of ephedrine-D 00:00: (four) [place] M (BROMFED 00 times Medical DM) 2-30-10 daily as Bran ch mg/5 mL needed for syrup Congestion /Allergies . bromphenira 2021-06 Yes [id number] 5mL Take 5 mL [facility] mine-pseudo 2-19 by mouth 4 it y of ephedrine-D 00:00: (four) [place] M (BROMFED 00 times Medical DM) 2-30-10 daily as Bran ch mg/5 mL needed for syrup Congestion /Allergies . bromphenira 2021-06 Yes [id number] 5mL Take 5 mL [facility] mine-pseudo 2-19 by mouth 4 it y of ephedrine-D 00:00: (four) [place] M (BROMFED 00 times Medical DM) 2-30-10 daily as Bran ch mg/5 mL needed for syrup Congestion /Allergies . bromphenira 2021-06 Yes [id number] 5mL Take 5 mL [facility] mine-pseudo 2-19 by mouth 4 it y of ephedrine-D 00:00: (four) [place] M (BROMFED 00 times Medical DM) 2-30-10 daily as Bran ch mg/5 mL needed for syrup Congestion /Allergies . bromphenira 2021-06 Yes [id number] 5mL Take 5 mL [facility] mine-pseudo 2-19 by mouth 4 it y of ephedrine-D 00:00: (four) [place] M (BROMFED 00 times Medical DM) 2-30-10 daily as Bran ch mg/5 mL needed for syrup Congestion /Allergies . bromphenira 2021-06 Yes [id number] 5mL Take 5 mL [facility] mine-pseudo 2-19 by mouth 4 it y of ephedrine-D 00:00: (four) [place] M (BROMFED 00 times Medical DM) 2-30-10 daily as Bran ch mg/5 mL needed for syrup Congestion /Allergies . bromphenira 2021-06 Yes [id number] 5mL Take 5 mL [facility] mine-pseudo 2-19 by mouth 4 it y of ephedrine-D 00:00: (four) [place] M (BROMFED 00 times Medical DM) 2-30-10 daily as Bran ch mg/5 mL needed for syrup Congestion /Allergies . bromphenira 2021-06 Yes [id number] 5mL Take 5 mL [facility] mine-pseudo 2-19 by mouth 4 it y of ephedrine-D 00:00: (four) [place] (BROMFED 00 times Medical DM) 2-30-10 daily as Bran ch mg/5 mL needed for syrup Congestion /Allergies . bromphenira 2021-06 Yes [id number] 5mL Take 5 mL [facility] mine-pseudo 2-19 by mouth 4 it y of ephedrine-D 00:00: (four) [place] (BROMFED 00 times Medical DM) 2-30-10 daily as Bran ch mg/5 mL needed for syrup Congestion /Allergies . bromphenira 2021-06 Yes [id number] 5mL Take 5 mL [facility] mine-pseudo 2-19 by mouth 4 it y of ephedrine-D 00:00: (four) [place] (BROMFED 00 times Medical DM) 2-30-10 daily as Bran ch mg/5 mL needed for syrup Congestion /Allergies . bromphenira 2021-06 Yes [id number] 5mL Take 5 mL [facility] mine-pseudo 2-19 by mouth 4 it y of ephedrine-D 00:00: (four) [place] (BROMFED 00 times Medical DM) 2-30-10 daily as Bran ch mg/5 mL needed for syrup Congestion /Allergies . bromphenira 2021-06 Yes [id number] 5mL Take 5 mL [facility] mine-pseudo 2-19 by mouth 4 it y of ephedrine-D 00:00: (four) [place] M (BROMFED 00 times Medical DM) 2-30-10 daily as Bran ch mg/5 mL needed for syrup Congestion /Allergies . bromphenira 2021-06 Yes [id number] 5mL Take 5 mL [facility] mine-pseudo 2-19 by mouth 4 it y of ephedrine-D 00:00: (four) [place] M (BROMFED 00 times Medical DM) 2-30-10 daily as Bran ch mg/5 mL needed for syrup Congestion /Allergies . bromphenira 2021-06 Yes [id number] 5mL Take 5 mL [facility] mine-pseudo 2-19 by mouth 4 it y of ephedrine-D 00:00: (four) [place] (BROMFED 00 times Medical DM) 2-30-10 daily as Bran ch mg/5 mL needed for syrup Congestion /Allergies . bromphenira 2021-06 Yes [id number] 5mL Take 5 mL [facility] mine-pseudo 2-19 by mouth 4 it y of ephedrine-D 00:00: (four) [place] (BROMFED 00 times Medical DM) 2-30-10 daily as Bran ch mg/5 mL needed for syrup Congestion /Allergies . bromphenira 2021-06 Yes [id number] 5mL Take 5 mL [facility] mine-pseudo 2-19 by mouth 4 it y of ephedrine-D 00:00: (four) [place] M (BROMFED 00 times Medical DM) 2-30-10 daily as Bran ch mg/5 mL needed for syrup Congestion /Allergies . bromphenira 2021-06 Yes [id number] 5mL Take 5 mL [facility] mine-pseudo 2-19 by mouth 4 it y of ephedrine-D 00:00: (four) [place] M (BROMFED 00 times Medical DM) 2-30-10 daily as Bran ch mg/5 mL needed for syrup Congestion /Allergies . bromphenira 2021-06 Yes [id number] 5mL Take 5 mL [facility] mine-pseudo 2-19 by mouth 4 it y of ephedrine-D 00:00: (four) [place] M (BROMFED 00 times Medical DM) 2-30-10 daily as Bran ch mg/5 mL needed for syrup Congestion /Allergies . bromphenira 2021-06 Yes [id number] 5mL Take 5 mL [facility] mine-pseudo 2-19 by mouth 4 it y of ephedrine-D 00:00: (four) [place] M (BROMFED 00 times Medical DM) 2-30-10 daily as Bran ch mg/5 mL needed for syrup Congestion /Allergies . bromphenira 2021-06 Yes [id number] 5mL Take 5 mL [facility] mine-pseudo 2-19 by mouth 4 it y of ephedrine-D 00:00: (four) [place] M (BROMFED 00 times Medical DM) 2-30-10 daily as Bran ch mg/5 mL needed for syrup Congestion /Allergies . bromphenira 2021-06 Yes [id number] 5mL Take 5 mL [facility] mine-pseudo 2-19 by mouth 4 it y of ephedrine-D 00:00: (four) [place] M (BROMFED 00 times Medical DM) 2-30-10 daily as Bran ch mg/5 mL needed for syrup Congestion /Allergies . bromphenira 2021-06 Yes [id number] 5mL Take 5 mL [facility] mine-pseudo 2-19 by mouth 4 it y of ephedrine-D 00:00: (four) [place] (BROMFED 00 times Medical DM) 2-30-10 daily as Bran ch mg/5 mL needed for syrup Congestion /Allergies . bromphenira 2021-06 Yes [id number] 5mL Take 5 mL [facility] mine-pseudo 2-19 by mouth 4 it y of ephedrine-D 00:00: (four) [place] (BROMFED 00 times Medical DM) 2-30-10 daily as Bran ch mg/5 mL needed for syrup Congestion /Allergies . bromphenira 2021-06 Yes [id number] 5mL Take 5 mL [facility] mine-pseudo 2-19 by mouth 4 it y of ephedrine-D 00:00: (four) [place] M (BROMFED 00 times Medical DM) 2-30-10 daily as Bran ch mg/5 mL needed for syrup Congestion /Allergies . codeine-gua 2021-06 Yes 5mL Take 5 mL U nivers ifenesin 2-15 by mouth ity of (CHERATUSSI 00:00: every 4 [place] N AC) 00 (four) Medical 10-100 mg/5 hours as Bran ch mL oral needed for solution Cough. Indication s: cough codeine-gua 2021-06 Yes 5mL Take 5 mL U nivers ifenesin 2-15 by mouth ity of (CHERATUSSI 00:00: every 4 [place] as N AC) 00 (four) Medical 10-100 mg/5 hours as Bran ch mL oral needed for solution Cough. Indication s: cough codeine-gua 2021-06 Yes 5mL Take 5 mL U nivers ifenesin 2-15 by mouth ity of (CHERATUSSI 00:00: every 4 [place] as N AC) 00 (four) Medical 10-100 mg/5 hours as Bran ch mL oral needed for solution Cough. Indication s: cough codeine-gua 2021-06 No 5mL Take 5 mL [facility] ifenesin 2-15 12-22 by mouth ity of (CHERATUSSI 00:00: 00:00 every 4 [place] N AC) 00 :00 (four) Medical 10-100 mg/5 hours as Bran ch mL oral needed for solution Cough. Indication s: cough codeine-gua 2021-06- No 5mL Take 5 mL [facility] ifenesin 2-15 12-22 by mouth ity of (CHERATUSSI 00:00: 00:00 every 4 [place] N AC) 00 :00 (four) Medical 10-100 mg/5 hours as Bran ch mL oral needed for solution Cough. Indication s: cough zolpidem 10 2021-06 Yes [id number] 10mg Take 1 [facility] mg tablet 1-21 tablet by ity o f 00:00: mouth at [place] 00 bedtime as Medical needed for Branch Insomnia. HYDROcodone 2021-06 Yes [id number] 1{tbl} Take 1 [facility] ter[facility] -acetaminop 1-21 tablet by ity of hen 10-325 00:00: mouth [place] mg tablet 00 every 6 Medical (six) Branch hours as needed for Pain (scale 4-6). Indication s: chronic pain zolpidem 2021-06 Yes [id number] 10mg Take 1 [facility] mg tablet 1-21 tablet by ity o f 00:00: mouth at [place] 00 bedtime as Medical needed for Branch Insomnia. HYDROcodone 2021-06 Yes [id number] 1{tbl} Take 1 [facility] -acetaminop 1-21 tablet by ity of hen 10-325 00:00: mouth [place] mg tablet 00 every 6 Medical (six) Branch hours as needed for Pain (scale 4-6). Indication s: chronic pain zolpidem 2021-06 Yes [id number] 10mg Take 1 [facility] mg tablet 1-21 tablet by ity o f 00:00: mouth at [place] 00 bedtime as Medical needed for Branch Insomnia. HYDROcodone 2021-06 Yes [id number] 1{tbl} Take 1 [facility] -acetaminop 1-21 tablet by ity of hen 10-325 00:00: mouth [place] mg tablet 00 every 6 Medical (six) Branch hours as needed for Pain (scale 4-6). Indication s: chronic pain zolpidem 2021-06 Yes [id number] 10mg Take 1 [facility] mg tablet 1-21 tablet by ity o f 00:00: mouth at [place] 00 bedtime as Medical needed for Branch Insomnia. HYDROcodone 2021-06 Yes [id number] 1{tbl} Take 1 [facility] -acetaminop 1-21 tablet by ity of hen 10-325 00:00: mouth [place] mg tablet 00 every 6 Medical (six) Branch hours as needed for Pain (scale 4-6). Indication s: chronic pain zolpidem 2021-06- No [id number] 10mg Take 1 [facility] mg tablet 1-21 12-22 tablet by ity of 00:00: 00:00 mouth at [place] 00 :00 bedtime as Medical needed for Branch Insomnia. HYDROcodone 2021-06- No 2745 1{tbl} Take 1 U nivers -acetaminop 1-21 12-22 tablet by it y of hen 10-325 00:00: 00:00 mouth [place] mg tablet 00 :00 every 6 Medical (six) Branch hours as needed for Pain (scale 4-6). Indication s: chronic pain zolpidem 2021-06- No [id number] 10mg Take 1 [facility] mg tablet - 12-22 tablet by ity of 00:00: 00:00 mouth at [place] 00 :00 bedtime as Medical needed for Branch Insomnia. HYDROcodone 2021-06- No 2745 1{tbl} Take 1 U nivers -acetaminop 1-21 12-22 tablet by it y of hen 10-325 00:00: 00:00 mouth [place] mg tablet 00 :00 every 6 Medical (six) Branch hours as needed for Pain (scale 4-6). Indication s: chronic pain zolpidem 2021-06 Yes [id number] 10mg Take 1 [facility] mg tablet 0-25 tablet by ity o f 00:00: mouth at [place] 00 bedtime as Medical needed for Branch Insomnia. HYDROcodone 2021-06 Yes [id number] 1{tbl} Take 1 Un ter[facility] -acetaminop 0-25 tablet by ity of hen 10-325 00:00: mouth [place] mg tablet 00 every 6 Medical (six) Branch hours as needed for Pain (scale 4-6). Indication s: chronic pain ALPRAZolam 2021-06 Yes [id number] 1mg Take 1 [facility] 1 mg tablet 0-25 tablet by ity of 00:00: mouth 3 [place] 00 (three) Medical times Branch daily as needed for Other (anxiety). zolpidem 2021-06 Yes [id number] 10mg Take 1 [facility] mg tablet 0-25 tablet by ity o f 00:00: mouth at [place] 00 bedtime as Medical needed for Branch Insomnia. HYDROcodone 2021-06 Yes [id number] 1{tbl} Take 1 [facility] -acetaminop 0-25 tablet by ity of hen 10-325 00:00: mouth [place] mg tablet 00 every 6 Medical (six) Branch hours as needed for Pain (scale 4-6). Indication s: chronic pain ALPRAZolam 2021-06 Yes [id number] 1mg Take 1 [facility] 1 mg tablet 0-25 tablet by ity of 00:00: mouth 3 [place] 00 (three) Medical times Branch daily as needed for Other (anxiety). ALPRAZolam 2021-06 Yes [id number] 1mg Take 1 [facility] 1 mg tablet 0-25 tablet by ity of 00:00: mouth 3 [place] 00 (three) Medical times Branch daily as needed for Other (anxiety). ALPRAZolam 2021-06 Yes [id number] 1mg Take 1 [facility] 1 mg tablet 0-25 tablet by ity of 00:00: mouth 3 [place] 00 (three) Medical times Branch daily as needed for Other (anxiety). ALPRAZolam 2021-06 Yes [id number] 1mg Take 1 [facility] 1 mg tablet 0-25 tablet by ity of 00:00: mouth 3 [place] 00 (three) Medical times Branch daily as needed for Other (anxiety). ALPRAZolam 2021-06 Yes [id number] 1mg Take 1 [facility] 1 mg tablet 0-25 tablet by ity of 00:00: mouth 3 00 (three) Medical times Branch daily as needed for Other (anxiety). ALPRAZolam 2021-06- No [id number] 1mg Take 1 [facility] 1 mg tablet 0-25 12-22 tablet by it y of 00:00: 00:00 mouth 3 [place] 00 :00 (three) Medical times Branch daily as needed for Other (anxiety). ALPRAZolam 2021-06- No [id number] 1mg Take 1 [facility] 1 mg tablet 0-25 12-22 tablet by it y of 00:00: 00:00 mouth 3 [place] 00 :00 (three) Medical times Branch daily as needed for Other (anxiety). zolpidem 10 2021-06- No [id number] 10mg Take 1 [facility] mg tablet 0-25 11-21 tablet by ity of 00:00: 00:00 mouth at [place] 00 :00 bedtime as Medical needed for Branch Insomnia. HYDROcodone 2021-06- No [id number] 1{tbl} Take 1 [facility] n[facility] -acetaminop 0-25 11-21 tablet by it y of hen 10-325 00:00: 00:00 mouth [place] mg tablet 00 :00 every 6 Medical (six) Branch hours as needed for Pain (scale 4-6). Indication s: chronic pain HYDROcodone Yes 2745 1{tbl} Take 1 [facility] -acetaminop 9-26 tablet by ity of hen 10-325 00:00: mouth [place] mg tablet 00 every 6 Medical (six) Branch hours as needed for Pain (scale 4-6). Indication s: chronic pain HYDROcodone Yes 2745 1{tbl} Take 1 [facility] -acetaminop 9-26 tablet by ity of hen 10-325 00:00: mouth [place] mg tablet 00 every 6 Medical (six) Branch hours as needed for Pain (scale 4-6). Indication s: chronic pain zolpidem 10 Yes [id number] 10mg Take 1 [facility] mg tablet 9-26 tablet by ity o f 00:00: mouth at [place] 00 bedtime as Medical needed for Branch Insomnia. HYDROcodone Yes 2745 1{tbl} Take 1 [facility] -acetaminop 9-26 tablet by ity of hen 10-325 00:00: mouth [place] mg tablet 00 every 6 Medical (six) Branch hours as needed for Pain (scale 4-6). Indication s: chronic pain zolpidem 10 2021- No [id number] 10mg Take 1 [facility] mg tablet 9-26 10-25 tablet by ity of 00:00: 00:00 mouth at [place] 00 :00 bedtime as Medical needed for Branch Insomnia. HYDROcodone 2021- No 2745 1{tbl} Take 1 [facility] nivers -acetaminop 9-26 10-25 tablet by it y of hen 10-325 00:00: 00:00 mouth [place] mg tablet 00 :00 every 6 Medical (six) Branch hours as needed for Pain (scale 4-6). Indication s: chronic pain zolpidem 10 2021- No [id number] 10mg Take 1 [facility] mg tablet 9-26 10-25 tablet by ity of 00:00: 00:00 mouth at [place] 00 :00 bedtime as Medical needed for Branch Insomnia. HYDROcodone 2021- No 2745 1{tbl} Take 1 [facility] nivers -acetaminop 9-26 10-25 tablet by it y of hen 10-325 00:00: 00:00 mouth [place] mg tablet 00 :00 every 6 Medical (six) Branch hours as needed for Pain (scale 4-6). Indication s: chronic pain ALPRAZolam 2021-0 Yes [id number] 1mg Take 1 [facility] 1 mg tablet 8-24 tablet by ity of 00:00: mouth 3 [place] 00 (three) Medical times Branch daily as needed for Other (anxiety). HYDROcodone 0 Yes 2745 1{tbl} Take 1 [facility] -acetaminop 8-24 tablet by ity of hen 10-325 00:00: mouth [place] mg tablet 00 every 6 Medical (six) Branch hours as needed for Pain (scale 4-6). Indication s: chronic pain ALPRAZolam Yes [id number] 1mg Take 1 [facility] 1 mg tablet 8-24 tablet by ity of 00:00: mouth 3 [place] 00 (three) Medical times Branch daily as needed for Other (anxiety). ALPRAZolam 0 Yes [id number] 1mg Take 1 [facility] 1 mg tablet 8-24 tablet by ity of 00:00: mouth 3 00 (three) Medical times Branch daily as needed for Other (anxiety). ALPRAZolam 0 Yes [id number] 1mg Take 1 [facility] 1 mg tablet 8-24 tablet by ity of 00:00: mouth 3 00 (three) Medical times Branch daily as needed for Other (anxiety). ALPRAZolam 0 Yes [id number] 1mg Take 1 [facility] 1 mg tablet 8-24 tablet by ity of 00:00: mouth 3 [place] 00 (three) Medical times Branch daily as needed for Other (anxiety). ALPRAZolam 2021-0 2021- No [id number] 1mg Take 1 [facility] 1 mg tablet 8-24 10-25 tablet by it y of 00:00: 00:00 mouth 3 [place] 00 :00 (three) Medical times Branch daily as needed for Other (anxiety). ALPRAZolam 2021-0 2022- No [id number] 1mg Take 1 [facility] 1 mg tablet 8-24 10-25 tablet by it y of 00:00: 00:00 mouth 3 [place] 00 :00 (three) Medical times Branch daily as needed for Other (anxiety). HYDROcodone 2021-0 2022- No 2745 1{tbl} Take 1 [facility] nivers -acetaminop 8-24 09-20 tablet by it y of hen 10-325 00:00: 00:00 mouth [place] mg tablet 00 :00 every 6 Medical (six) Branch hours as needed for Pain (scale 4-6). Indication s: chronic pain HYDROcodone 2021- No 2745 1{tbl} Take 1 [facility] nivers -acetaminop 8-24 09-20 tablet by it y of hen 10-325 00:00: 00:00 mouth [place] mg tablet 00 :00 every 6 Medical (six) Branch hours as needed for Pain (scale 4-6). Indication s: chronic pain codeine-gua 0 Yes 5mL Take 5 mL U nivers ifenesin 8-16 by mouth ity of (CHERATUSSI 00:00: every 4 [place] N AC) 00 (four) Medical 10-100 mg/5 hours as Bran ch mL oral needed for solution Cough. Indication s: cough codeine-gua 0 Yes 5mL Take 5 mL U nivers ifenesin 8-16 by mouth ity of (CHERATUSSI 00:00: every 4 [place] N AC) 00 (four) Medical 10-100 mg/5 hours as Bran ch mL oral needed for solution Cough. Indication s: cough codeine-gua 0 Yes 5mL Take 5 mL U nivers ifenesin 8-16 by mouth ity of (CHERATUSSI 00:00: every 4 [place] N AC) 00 (four) Medical 10-100 mg/5 hours as Bran ch mL oral needed for solution Cough. Indication s: cough codeine-gua 2021-0 Yes 5mL Take 5 mL U nivers ifenesin 8-16 by mouth ity of (CHERATUSSI 00:00: every 4 [place] N AC) 00 (four) Medical 10-100 mg/5 hours as Bran ch mL oral needed for solution Cough. Indication s: cough codeine-gua 2021-0 Yes 5mL Take 5 mL U nivers ifenesin 8-16 by mouth ity of (CHERATUSSI 00:00: every 4 [place] N AC) 00 (four) Medical 10-100 mg/5 hours as Bran ch mL oral needed for solution Cough. Indication s: cough codeine-gua 2021-0 Yes 5mL Take 5 mL U nivers ifenesin 8-16 by mouth ity of (CHERATUSSI 00:00: every 4 [place] N AC) 00 (four) Medical 10-100 mg/5 hours as Bran ch mL oral needed for solution Cough. Indication s: cough codeine-gua 2021-0 Yes 5mL Take 5 mL U nivers ifenesin 8-16 by mouth ity of (CHERATUSSI 00:00: every 4 [place] N AC) 00 (four) Medical 10-100 mg/5 hours as Bran ch mL oral needed for solution Cough. Indication s: cough codeine-gua 2021-0 Yes 5mL Take 5 mL U nivers ifenesin 8-16 by mouth ity of (CHERATUSSI 00:00: every 4 [place] N AC) 00 (four) Medical 10-100 mg/5 hours as Bran ch mL oral needed for solution Cough. Indication s: cough codeine-gua 0 Yes 5mL Take 5 mL U nivers ifenesin 8-16 by mouth ity of (CHERATUSSI 00:00: every 4 [place] N AC) 00 (four) Medical 10-100 mg/5 hours as Bran ch mL oral needed for solution Cough. Indication s: cough codeine-gua 0 Yes 5mL Take 5 mL U nivers ifenesin 8-16 by mouth ity of (CHERATUSSI 00:00: every 4 [place] N AC) 00 (four) Medical 10-100 mg/5 hours as Bran ch mL oral needed for solution Cough. Indication s: cough codeine-gua 2021-0 2021- No 5mL Take 5 mL [facility] ifenesin 8-16 12-15 by mouth ity of (CHERATUSSI 00:00: 00:00 every 4 [place] N AC) 00 :00 (four) Medical 10-100 mg/5 hours as Bran ch mL oral needed for solution Cough. Indication s: cough HYDROcodone 0 Yes 2745 1{tbl} Take 1 [facility] -acetaminop 7-28 tablet by ity of hen 10-325 00:00: mouth [place] mg tablet 00 every 6 Medical (six) Branch hours as needed for Pain (scale 4-6). Indication s: chronic pain ALPRAZolam Yes [id number] 1mg Take 1 [facility] 1 mg tablet 7-28 tablet by ity of 00:00: mouth 3 [place] 00 (three) Medical times Branch daily as needed for Other (anxiety). HYDROcodone Yes [id number] 1{tbl} Take 1 [facility] -acetaminop 7-28 tablet by ity of hen 10-325 00:00: mouth [place] mg tablet 00 every 6 Medical (six) Branch hours as needed for Pain (scale 4-6). Indication s: chronic pain ALPRAZolam Yes [id number] 1mg Take 1 [facility] 1 mg tablet 7-28 tablet by ity of 00:00: mouth 3 [place] 00 (three) Medical times Branch daily as needed for Other (anxiety). HYDROcodone Yes [id number] 1{tbl} Take 1 [facility] -acetaminop 7-28 tablet by ity of hen 10-325 00:00: mouth [place] mg tablet 00 every 6 Medical (six) Branch hours as needed for Pain (scale 4-6). Indication s: chronic pain ALPRAZolam 2021- No [id number] 1mg Take 1 [facility] 1 mg tablet 7-28 08-24 tablet by it y of 00:00: 00:00 mouth 3 [place] 00 :00 (three) Medical times Branch daily as needed for Other (anxiety). HYDROcodone 2021- No 2745 1{tbl} Take 1 [facility] nivers -acetaminop 7-28 08-24 tablet by it y of hen 10-325 00:00: 00:00 mouth [place] mg tablet 00 :00 every 6 Medical (six) Branch hours as needed for Pain (scale 4-6). Indication s: chronic pain zolpidem 10 Yes [id number] 10mg Take 1 [facility] mg tablet 7-05 tablet by ity o f 00:00: mouth at [place] 00 bedtime as Medical needed for Branch Insomnia. zolpidem 10 Yes [id number] 10mg Take 1 [facility] mg tablet 7-05 tablet by ity o f 00:00: mouth at [place] 00 bedtime as Medical needed for Branch Insomnia. zolpidem 10 Yes [id number] 10mg Take 1 [facility] mg tablet 7-05 tablet by ity o f 00:00: mouth at [place] 00 bedtime as Medical needed for Branch Insomnia. zolpidem 10 0 Yes [id number] 10mg Take 1 [facility] mg tablet 7-05 tablet by ity o f 00:00: mouth at [place] 00 bedtime as Medical needed for Branch Insomnia. zolpidem 10 0 Yes [id number] 10mg Take 1 [facility] mg tablet 7-05 tablet by ity o f 00:00: mouth at [place] 00 bedtime as Medical needed for Branch Insomnia. zolpidem 10 2021- No [id number] 10mg Take 1 [facility] mg tablet 7-05 09-20 tablet by ity of 00:00: 00:00 mouth at [place] 00 :00 bedtime as Medical needed for Branch Insomnia. zolpidem 10 2021- No [id number] 10mg Take 1 [facility] mg tablet 7-05 09-20 tablet by ity of 00:00: 00:00 mouth at [place] 00 :00 bedtime as Medical needed for Branch Insomnia. codeine-gua 2021- No 5mL Take 5 mL [facility] ifenesin 12-07 by mouth ity of (CHERATUSSI 00:00: 00:00 every 4 [place] N AC) 00 :00 (four) Medical 10-100 mg/5 hours as Bran ch mL oral needed for solution Cough. Indication s: cough sildenafil 2020-0 Yes [id number] 8TK 1 T PO [facility] (VIAGRA) 4-22 QD PRN ity of 100 mg 00:00: [place] tablet 00 Medical Branch sildenafil 2020-0 Yes [id number] 8TK 1 T PO [facility] (VIAGRA) 4-22 QD PRN ity of 100 mg 00:00: [place] tablet 00 Medical Branch sildenafil 2020-0 Yes [id number] 8TK 1 T PO [facility] (VIAGRA) 4-22 QD PRN ity of 100 mg 00:00: [place] tablet 00 Medical Branch sildenafil 2020-0 Yes [id number] 8TK 1 T PO [facility] (VIAGRA) 4-22 QD PRN ity of 100 mg 00:00: [place] tablet 00 Medical Branch sildenafil 2020-0 Yes [id number] 8TK 1 T PO [facility] (VIAGRA) 4-22 QD PRN ity of 100 mg 00:00: [place] tablet 00 Medical Branch sildenafil 2020-0 Yes [id number] 8TK 1 T PO [facility] (VIAGRA) 4-22 QD PRN ity of 100 mg 00:00: [place] tablet 00 Medical Branch sildenafil 2020-0 Yes [id number] 8TK 1 T PO [facility] (VIAGRA) 4-22 QD PRN ity of 100 mg 00:00: [place] tablet 00 Medical Branch sildenafil 2020-0 Yes [id number] 8TK 1 T PO [facility] (VIAGRA) 4-22 QD PRN ity of 100 mg 00:00: [place] tablet 00 Medical Branch sildenafil 2020-0 Yes [id number] 8TK 1 T PO [facility] (VIAGRA) 4-22 QD PRN ity of 100 mg 00:00: [place] tablet 00 Medical Branch sildenafil 2020-0 Yes [id number] 8TK 1 T PO [facility] (VIAGRA) 4-22 QD PRN ity of 100 mg 00:00: [place] tablet 00 Medical Branch sildenafil 2020-0 Yes [id number] 8TK 1 T PO [facility] (VIAGRA) 4-22 QD PRN ity of 100 mg 00:00: [place] tablet 00 Medical Branch sildenafil 2020-0 Yes [id number] 8TK 1 T PO [facility] (VIAGRA) 4-22 QD PRN ity of 100 mg 00:00: [place] tablet 00 Medical Branch sildenafil 2020-0 Yes [id number] 8TK 1 T PO [facility] (VIAGRA) 4-22 QD PRN ity of 100 mg 00:00: [place] tablet 00 Medical Branch sildenafil 2020-0 Yes [id number] 8TK 1 T PO [facility] (VIAGRA) 4-22 QD PRN ity of 100 mg 00:00: [place] tablet 00 Medical Branch sildenafil 2020-0 Yes [id number] 8TK 1 T PO [facility] (VIAGRA) 4-22 QD PRN ity of 100 mg 00:00: [place] tablet 00 Medical Branch sildenafil 2020-0 Yes [id number] 8TK 1 T PO [facility] (VIAGRA) 4-22 QD PRN ity of 100 mg 00:00: [place] tablet 00 Medical Branch sildenafil 2020-0 Yes [id number] 8TK 1 T PO [facility] (VIAGRA) 4-22 QD PRN ity of 100 mg 00:00: [place] tablet 00 Medical Branch sildenafil 2020-0 Yes [id number] 8TK 1 T PO [facility] (VIAGRA) 4-22 QD PRN ity of 100 mg 00:00: [place] tablet 00 Medical Branch sildenafil 2020-0 Yes [id number] 8TK 1 T PO [facility] (VIAGRA) 4-22 QD PRN ity of 100 mg 00:00: [place] tablet 00 Medical Branch sildenafil 2020-0 Yes [id number] 8TK 1 T PO [facility] (VIAGRA) 4-22 QD PRN ity of 100 mg 00:00: [place] tablet 00 Medical Branch sildenafil 2020-0 Yes [id number] 8TK 1 T PO [facility] (VIAGRA) 4-22 QD PRN ity of 100 mg 00:00: [place] tablet 00 Medical Branch sildenafil 2020-0 Yes [id number] 8TK 1 T PO [facility] (VIAGRA) 4-22 QD PRN ity of 100 mg 00:00: [place] tablet 00 Medical Branch sildenafil 2020-0 Yes [id number] 8TK 1 T PO [facility] (VIAGRA) 4-22 QD PRN ity of 100 mg 00:00: [place] tablet 00 Medical Branch sildenafil 2020-0 Yes [id number] 8TK 1 T PO [facility] (VIAGRA) 4-22 QD PRN ity of 100 mg 00:00: [place] tablet 00 Medical Branch sildenafil 2020-0 Yes [id number] 8TK 1 T PO [facility] (VIAGRA) 4-22 QD PRN ity of 100 mg 00:00: [place] tablet 00 Medical Branch sildenafil 2020-0 Yes [id number] 8TK 1 T PO [facility] (VIAGRA) 4-22 QD PRN ity of 100 mg 00:00: [place] tablet 00 Medical Branch sildenafil 2020-0 Yes [id number] 8TK 1 T PO [facility] (VIAGRA) 4-22 QD PRN ity of 100 mg 00:00: [place] tablet 00 Medical Branch sildenafil 2020-0 2022- No [id number] 8TK 1 T PO [facility] (VIAGRA) 4-22 - QD PRN ity of 100 mg 00:00: 00:00 [place] tablet 00 :00 Medical Branch Immunizations Ordered Filled Immunization Date Status Comments [facility] e Immunization Name Name Pneumococcal 20 2022-03-13 Completed Universit y of Conjugate, PCV20 00:00:00 [place] Me dical (Prevnar 20) Branch Influenza Virus 2022-03-13 Completed Universit y of Vaccine,quad 00:00:00 [place] [facility],preserve Free Branch 65+ Pneumococcal 20 2022-03-13 Completed Universit y of Conjugate, PCV20 00:00:00 [place] Me dical (Prevnar 20) Branch Influenza Virus 2022-03-13 Completed Universit y of Vaccine,quad 00:00:00 [place] [facility] Im,preserve Free Branch 65+ Pneumococcal 20 2022-03-13 Completed Universit y of Conjugate, PCV20 00:00:00 [place] Me dical (Prevnar 20) Branch Influenza Virus 2022-03-13 Completed Universit y of Vaccine,quad 00:00:00 [place] [facility] Im,preserve Free Branch 65+ Pneumococcal 20 2022-03-13 Completed Universit y of Conjugate, PCV20 00:00:00 [place] [facility] (Prevnar 20) Branch Influenza Virus 2022-03-13 Completed Universit y of Vaccine,quad 00:00:00 [place] [facility] Im,preserve Free Branch 65+ Pneumococcal 20 2022-03-13 Completed Universit y of Conjugate, PCV20 00:00:00 [place] [facility] (Prevnar 20) Branch Influenza Virus 2022-03-13 Completed Universit y of Vaccine,quad 00:00:00 [place] [facility] Im,preserve Free Branch 65+ Pneumococcal 20 2022-03-13 Completed Universit y of Conjugate, PCV20 00:00:00 [place] Me dical (Prevnar 20) Branch Influenza Virus 2022-03-13 Completed Universit y of Vaccine,quad 00:00:00 [place] Medica l Im,preserve Free Branch 65+ Pneumococcal 20 2022-03-13 Completed Universit y of Conjugate, PCV20 00:00:00 [place] Me dical (Prevnar 20) Branch Influenza Virus 2022-03-13 Completed Universit y of Vaccine,quad 00:00:00 [place] [facility]ica [facility] Im,preserve Free Branch 65+ Pneumococcal 20 2022-03-13 Completed Universit y of Conjugate, PCV20 00:00:00 [place] Me dical (Prevnar 20) Branch Influenza Virus 2022-03-13 Completed Universit y of Vaccine,quad 00:00:00 [place] [facility] Im,preserve Free Branch 65+ Pneumococcal 20 2022-03-13 Completed Universit y of Conjugate, PCV20 00:00:00 [place] [facility]ical (Prevnar 20) Branch Influenza Virus 2022-03-13 Completed Universit y of Vaccine,quad 00:00:00 [place] [facility] Im,preserve Free Branch 65+ Pneumococcal 20 2022-03-13 Completed Universit y of Conjugate, PCV20 00:00:00 [place] [facility]ical (Prevnar 20) Branch Influenza Virus 2022-03-13 Completed Universit y of Vaccine,quad 00:00:00 [place] [facility] Im,preserve Free Branch 65+ Pneumococcal 20 2022-03-13 Completed Universit y of Conjugate, PCV20 00:00:00 [place] Me dical (Prevnar 20) Branch Influenza Virus 2022-03-13 Completed Universit y of Vaccine,quad 00:00:00 [place] Medica l Im,preserve Free Branch 65+ Pneumococcal 20 2022-03-13 Completed Universit y of Conjugate, PCV20 00:00:00 [place] Me dical (Prevnar 20) Branch Influenza Virus 2022-03-13 Completed Universit y of Vaccine,quad 00:00:00 [place] [facility]ica [facility] Im,preserve Free Branch 65+ Pneumococcal 20 2022-03-13 Completed Universit y of Conjugate, PCV20 00:00:00 [place] Me dical (Prevnar 20) Branch Influenza Virus 2022-03-13 Completed Universit y of Vaccine,quad 00:00:00 [place] [facility]ica [facility] Im,preserve Free Branch 65+ Pneumococcal 20 2022-03-13 Completed Universit y of Conjugate, PCV20 00:00:00 [place] Me dical (Prevnar 20) Branch Influenza Virus 2022-03-13 Completed Universit y of Vaccine,quad 00:00:00 [place] [facility] Im,preserve Free Branch 65+ Pneumococcal 20 2022-03-13 Completed Universit y of Conjugate, PCV20 00:00:00 [place] Me [facility]ical (Prevnar 20) Branch Influenza Virus 2022-03-13 Completed Universit y of Vaccine,quad 00:00:00 [place] [facility] Im,preserve Free Branch 65+ Pneumococcal 20 2022-03-13 Completed Universit y of Conjugate, PCV20 00:00:00 [place] Me dical (Prevnar 20) Branch Influenza Virus 2022-03-13 Completed Universit y of Vaccine,quad 00:00:00 [place] [facility] Im,preserve Free Branch 65+ Pneumococcal 20 2022-03-13 Completed Universit y of Conjugate, PCV20 00:00:00 [place] Me dical (Prevnar 20) Branch Influenza Virus 2022-03-13 Completed Universit y of Vaccine,quad 00:00:00 [place] [facility]ica [facility] Im,preserve Free Branch 65+ Pneumococcal 20 2022-03-13 Completed Universit y of Conjugate, PCV20 00:00:00 [place] Me dical (Prevnar 20) Branch Influenza Virus 2022-03-13 Completed Universit y of Vaccine,quad 00:00:00 [place] Medica [facility] Im,preserve Free Branch 65+ Pneumococcal 20 2022-03-13 Completed Universit y of Conjugate, PCV20 00:00:00 [place] Me dical (Prevnar 20) Branch Influenza Virus 2022-03-13 Completed Universit y of Vaccine,quad 00:00:00 [place] [facility] Im,preserve Free Branch 65+ Pneumococcal 20 2022-03-13 Completed Universit y of Conjugate, PCV20 00:00:00 [place] Me [facility]ical (Prevnar 20) Branch Influenza Virus 2022-03-13 Completed Universit y of Vaccine,quad 00:00:00 [place] [facility] Im,preserve Free Branch 65+ Pneumococcal 20 2022-03-13 Completed Universit y of Conjugate, PCV20 00:00:00 [place] [facility]ical (Prevnar 20) Branch Influenza Virus 2022-03-13 Completed Universit y of Vaccine,quad 00:00:00 [place] [facility]ica [facility] Im,preserve Free Branch 65+ Pneumococcal 20 2022-03-13 Completed Universit y of Conjugate, PCV20 00:00:00 [place] Me [facility]ical (Prevnar 20) Branch Influenza Virus 2022-03-13 Completed Universit y of Vaccine,quad 00:00:00 [place] [facility]ica [facility] Im,preserve Free Branch 65+ Pneumococcal 20 2022-03-13 Completed Universit y of Conjugate, PCV20 00:00:00 [place] Me [facility]ical (Prevnar 20) Branch Influenza Virus 2022-03-13 Completed Universit y of Vaccine,quad 00:00:00 [place] [facility] Im,preserve Free Branch 65+ Pneumococcal 20 2022-03-13 Completed Universit y of Conjugate, PCV20 00:00:00 [place] Me [facility]ical (Prevnar 20) Branch Influenza Virus 2022-03-13 Completed Universit y of Vaccine,quad 00:00:00 [place] [facility] Im,preserve Free Branch 65+ Pneumococcal 20 2022-03-13 Completed Universit y of Conjugate, PCV20 00:00:00 [place] [facility]ical (Prevnar 20) Branch Influenza Virus 2022-03-13 Completed Universit y of Vaccine,quad 00:00:00 [place] [facility] Im,preserve Free Branch 65+ Pneumococcal 20 2022-03-13 Completed Universit y of Conjugate, PCV20 00:00:00 [place] [facility] (Prevnar 20) Branch Influenza Virus 2022-03-13 Completed Universit y of Vaccine,quad 00:00:00 [place] [facility] Im,preserve Free Branch 65+ Pneumococcal 20 2022-03-13 Completed Universit y of Conjugate, PCV20 00:00:00 [place] Me [facility]ical (Prevnar 20) Branch Influenza Virus 2022-03-13 Completed Universit y of Vaccine,quad 00:00:00 [place] [facility] Im,preserve Free Branch 65+ Pneumococcal 20 2022-03-13 Completed Universit y of Conjugate, PCV20 00:00:00 [place] [facility] (Prevnar 20) Branch Influenza Virus 2022-03-13 Completed Universit y of Vaccine,quad 00:00:00 [place] [facility] Im,preserve Free Branch 65+ Pneumococcal 20 2022-03-13 Completed Universit y of Conjugate, PCV20 00:00:00 [place] [facility] (Prevnar 20) Branch Influenza Virus 2022-03-13 Completed Universit y of Vaccine,quad 00:00:00 [place] [facility] Im,preserve Free Branch 65+ Pneumococcal 20 2022-03-13 Completed Universit y of Conjugate, PCV20 00:00:00 [place] [facility] (Prevnar 20) Branch Influenza Virus 2022-03-13 Completed Universit y of Vaccine,quad 00:00:00 [place] [facility] Im,preserve Free Branch 65+ Pneumococcal 20 2022-03-13 Completed Universit y of Conjugate, PCV20 00:00:00 [place] [facility] (Prevnar 20) Branch Influenza Virus 2022-03-13 Completed Universit y of Vaccine,quad 00:00:00 [place] [facility] Im,preserve Free Branch 65+ Pneumococcal 20 2022-03-13 Completed Universit y of Conjugate, PCV20 00:00:00 [place] [facility] (Prevnar 20) Branch Influenza Virus 2022-03-13 Completed [facility] 65+ SARS-COV-2 COVID-19 2021-05-30 Completed Unive rsity of PFIZER VACCINE 00:00:00 [facility] SARS-COV-2 COVID-19 2021-05-30 Completed Unive rsity of PFIZER VACCINE 00:00:00 [facility] SARS-COV-2 COVID-19 2021-05-30 Completed Unive rsity of PFIZER VACCINE 00:00:00 [facility] SARS-COV-2 COVID-19 2021-05-30 Completed Unive rsity of PFIZER VACCINE 00:00:00 [facility] SARS-COV-2 COVID-19 2021-05-30 Completed Unive rsity of PFIZER VACCINE 00:00:00 [facility] SARS-COV-2 COVID-19 2021-05-30 Completed Unive rsity of PFIZER VACCINE 00:00:00 [facility] SARS-COV-2 COVID-19 2021-05-30 Completed Unive rsity of PFIZER VACCINE 00:00:00 [facility] SARS-COV-2 COVID-19 2021-05-30 Completed Unive rsity of PFIZER VACCINE 00:00:00 [facility] SARS-COV-2 COVID-19 2021-05-30 Completed Unive rsity of PFIZER VACCINE 00:00:00 [facility] SARS-COV-2 COVID-19 2021-05-30 Completed Unive rsity of PFIZER VACCINE 00:00:00 [facility] SARS-COV-2 COVID-19 2021-05-30 Completed Unive rsity of PFIZER VACCINE 00:00:00 [facility] SARS-COV-2 COVID-19 2021-05-30 Completed Unive rsity of PFIZER VACCINE 00:00:00 [facility] SARS-COV-2 COVID-19 2021-05-30 Completed Unive rsity of PFIZER VACCINE 00:00:00 [facility] SARS-COV-2 COVID-19 2021-05-30 Completed Unive rsity of PFIZER VACCINE 00:00:00 [facility] SARS-COV-2 COVID-19 2021-05-30 Completed Unive rsity of PFIZER VACCINE 00:00:00 [facility] SARS-COV-2 COVID-19 2021-05-30 Completed Unive rsity of PFIZER VACCINE 00:00:00 [facility] SARS-COV-2 COVID-19 2021-05-30 Completed Unive rsity of PFIZER VACCINE 00:00:00 [facility] SARS-COV-2 COVID-19 2021-05-30 Completed Unive rsity of PFIZER VACCINE 00:00:00 [facility] [facility] SARS-COV-2 COVID-19 2021-05-30 Completed Unive rsity of PFIZER VACCINE 00:00:00 [facility] SARS-COV-2 COVID-19 2021-05-30 Completed Unive rsity of PFIZER VACCINE 00:00:00 [facility] SARS-COV-2 COVID-19 2021-05-30 Completed Unive rsity of PFIZER VACCINE 00:00:00 [facility] SARS-COV-2 COVID-19 2021-05-30 Completed Unive rsity of PFIZER VACCINE 00:00:00 [facility] SARS-COV-2 COVID-19 2021-05-30 Completed Unive rsity of PFIZER VACCINE 00:00:00 [facility] SARS-COV-2 COVID-19 2021-05-30 Completed Unive rsity of PFIZER VACCINE 00:00:00 [facility] SARS-COV-2 COVID-19 2021-05-30 Completed Unive rsity of PFIZER VACCINE 00:00:00 [facility] SARS-COV-2 COVID-19 2021-05-30 Completed Unive rsity of PFIZER VACCINE 00:00:00 [facility] SARS-COV-2 COVID-19 2021-05-30 Completed Unive rsity of PFIZER VACCINE 00:00:00 [facility] SARS-COV-2 COVID-19 2021-05-30 Completed Unive rsity of PFIZER VACCINE 00:00:00 [facility] SARS-COV-2 COVID-19 2021-05-30 Completed Unive rsity of PFIZER VACCINE 00:00:00 [facility] SARS-COV-2 COVID-19 2021-05-30 Completed Unive rsity of PFIZER VACCINE 00:00:00 [facility] SARS-COV-2 COVID-19 2021-05-30 Completed Unive rsity of PFIZER VACCINE 00:00:00 [facility] SARS-COV-2 COVID-19 2021-05-30 Completed Unive rsity of PFIZER VACCINE 00:00:00 [facility] Influenza Virus 2021-03-25 Completed Universit y of Vaccine - Whole 00:00:00 [facility] Influenza Virus 2021-03-25 Completed Universit y of Vaccine - Whole 00:00:00 [facility] Influenza Virus 2021-03-25 Completed Universit y of Vaccine - Whole 00:00:00 [facility] Influenza Virus 2021-03-25 Completed Universit y of Vaccine - Whole 00:00:00 [facility] Influenza Virus 2021-03-25 Completed Universit y of Vaccine - Whole 00:00:00 [facility] Influenza Virus 2021-03-25 Completed Universit y of Vaccine - Whole 00:00:00 [facility] Influenza Virus 2021-03-25 Completed Universit y of Vaccine - Whole 00:00:00 [facility] Influenza Virus 2021-03-25 Completed Universit y of Vaccine - Whole 00:00:00 [facility] Influenza Virus 2021-03-25 Completed Universit y of Vaccine - Whole 00:00:00 [facility] Influenza Virus 2021-03-25 Completed Universit y of Vaccine - Whole 00:00:00 [facility] Influenza Virus 2021-03-25 Completed Universit y of Vaccine - Whole 00:00:00 [facility] Influenza Virus 2021-03-25 Completed Universit y of Vaccine - Whole 00:00:00 [facility] Influenza Virus 2021-03-25 Completed Universit y of Vaccine - Whole 00:00:00 [facility] Influenza Virus 2021-03-25 Completed Universit y of Vaccine - Whole 00:00:00 [facility] Influenza Virus 2021-03-25 Completed Universit y of Vaccine - Whole 00:00:00 [facility] Influenza Virus 2021-03-25 Completed Universit y of Vaccine - Whole 00:00:00 [facility] Influenza Virus 2021-03-25 Completed Universit y of Vaccine - Whole 00:00:00 [facility] Influenza Virus 2021-03-25 Completed Universit y of Vaccine - Whole 00:00:00 [facility] Influenza Virus 2021-03-25 Completed Universit y of Vaccine - Whole 00:00:00 [facility] Influenza Virus 2021-03-25 Completed Universit y of Vaccine - Whole 00:00:00 [facility] Influenza Virus 2021-03-25 Completed Universit y of Vaccine - Whole 00:00:00 [facility] Influenza Virus 2021-03-25 Completed Universit y of Vaccine - Whole 00:00:00 [facility] Influenza Virus 2021-03-25 Completed Universit y of Vaccine - Whole 00:00:00 [facility] Influenza Virus 2021-03-25 Completed Universit y of Vaccine - Whole 00:00:00 [facility] Influenza Virus 2021-03-25 Completed Universit y of Vaccine - Whole 00:00:00 [facility] Influenza Virus 2021-03-25 Completed Universit y of Vaccine - Whole 00:00:00 [facility] Influenza Virus 2021-03-25 Completed Universit y of Vaccine - Whole 00:00:00 [facility] Influenza Virus 2021-03-25 Completed Universit y of Vaccine - Whole 00:00:00 [facility] Influenza Virus 2021-03-25 Completed Universit y of Vaccine - Whole 00:00:00 [facility] Influenza Virus 2021-03-25 Completed Universit y of Vaccine - Whole 00:00:00 [facility] Influenza Virus 2021-03-25 Completed Universit y of Vaccine - Whole 00:00:00 [facility] Influenza Virus 2021-03-25 Completed Universit y of Vaccine - Whole 00:00:00 [facility] Influenza High Dose 2021-03-18 Completed Unive rsity of 00:00:00 [facility] Influenza High Dose 2021-03-18 Completed Unive rsity of 00:00:00 [facility] Influenza High Dose 2021-03-18 Completed Unive rsity of 00:00:00 [facility] Influenza High Dose 2021-03-18 Completed Unive rsity of 00:00:00 [facility] Influenza High Dose 2021-03-18 Completed Unive rsity of 00:00:00 [facility] Influenza High Dose 2021-03-18 Completed Unive rsity of 00:00:00 [facility] Influenza High Dose 2021-03-18 Completed Unive rsity of 00:00:00 [facility] Influenza High Dose 2021-03-18 Completed Unive rsity of 00:00:00 [facility] Influenza High Dose 2021-03-18 Completed Unive rsity of 00:00:00 [facility] Influenza High Dose 2021-03-18 Completed Unive rsity of 00:00:00 [facility] Influenza High Dose 2021-03-18 Completed Unive rsity of 00:00:00 [facility] Influenza High Dose 2021-03-18 Completed Unive rsity of 00:00:00 [facility] Influenza High Dose 2021-03-18 Completed Unive rsity of 00:00:00 [facility] Influenza High Dose 2021-03-18 Completed Unive rsity of 00:00:00 [facility] Influenza High Dose 2021-03-18 Completed Unive rsity of 00:00:00 [facility] Influenza High Dose 2021-03-18 Completed Unive rsity of 00:00:00 [facility] Influenza High Dose 2021-03-18 Completed Unive rsity of 00:00:00 [facility] Influenza High Dose 2021-03-18 Completed Unive rsity of 00:00:00 [facility] Influenza High Dose 2021-03-18 Completed Unive rsity of 00:00:00 [facility] Influenza High Dose 2021-03-18 Completed Unive rsity of 00:00:00 [facility] Influenza High Dose 2021-03-18 Completed Unive rsity of 00:00:00 [facility] Influenza High Dose 2021-03-18 Completed Unive rsity of 00:00:00 [facility] Influenza High Dose 2021-03-18 Completed Unive rsity of 00:00:00 [facility] Influenza High Dose 2021-03-18 Completed Unive rsity of 00:00:00 [facility] Influenza High Dose 2021-03-18 Completed Unive rsity of 00:00:00 [facility] Influenza High Dose 2021-03-18 Completed Unive rsity of 00:00:00 [facility] Influenza High Dose 2021-03-18 Completed Unive rsity of 00:00:00 [facility] Influenza High Dose 2021-03-18 Completed Unive rsity of 00:00:00 [facility] Influenza High Dose 2021-03-18 Completed Unive rsity of 00:00:00 [facility] Influenza High Dose 2021-03-18 Completed Unive rsity of 00:00:00 [facility] Influenza High Dose 2021-03-18 Completed Unive rsity of 00:00:00 [facility] Influenza High Dose 2021-03-18 Completed Unive rsity of 00:00:00 [facility] Influenza High Dose 2021-03-18 Completed Unive rsity of 00:00:00 [facility] Influenza High Dose 2021-03-18 Completed Unive rsity of 00:00:00 [facility] Influenza High Dose 2021-03-18 Completed Unive rsity of 00:00:00 [facility] Influenza High Dose 2021-03-18 Completed Unive rsity of 00:00:00 [facility] Influenza High Dose 2021-03-18 Completed Unive rsity of 00:00:00 [facility] Influenza High Dose 2021-03-18 Completed Unive rsity of 00:00:00 [facility] Influenza High Dose 2021-03-18 Completed Unive rsity of 00:00:00 [facility] Influenza High Dose 2021-03-18 Completed Unive rsity of 00:00:00 [facility] Influenza High Dose 2021-03-18 Completed Unive rsity of 00:00:00 [facility] Influenza High Dose 2021-03-18 Completed Unive rsity of 00:00:00 [facility] Influenza High Dose 2021-03-18 Completed Unive rsity of 00:00:00 [facility] Influenza High Dose 2021-03-18 Completed Unive rsity of 00:00:00 [facility] Influenza High Dose 2021-03-18 Completed Unive rsity of 00:00:00 [facility] Influenza Virus 2020-02-06 Completed Universit y of Vaccine Quad .5 mL 00:00:00 [facility] Influenza Virus 2020-02-06 Completed Universit y of Vaccine Quad .5 mL 00:00:00 [facility] Influenza Virus 2020-02-06 Completed Universit y of Vaccine Quad .5 mL 00:00:00 [facility] Influenza Virus 2020-02-06 Completed Universit y of Vaccine Quad .5 mL 00:00:00 [facility] Influenza Virus 2020-02-06 Completed Universit y of Vaccine Quad .5 mL 00:00:00 [facility] Influenza Virus 2020-02-06 Completed Universit y of Vaccine Quad .5 mL 00:00:00 [facility] Influenza Virus 2020-02-06 Completed Universit y of Vaccine Quad .5 mL 00:00:00 [facility] Influenza Virus 2020-02-06 Completed Universit y of Vaccine Quad .5 mL 00:00:00 [facility] Influenza Virus 2020-02-06 Completed Universit y of Vaccine Quad .5 mL 00:00:00 [facility] Influenza Virus 2020-02-06 Completed Universit y of Vaccine Quad .5 mL 00:00:00 [facility] Influenza Virus 2020-02-06 Completed Universit y of Vaccine Quad .5 mL 00:00:00 [facility] Influenza Virus 2020-02-06 Completed Universit y of Vaccine Quad .5 mL 00:00:00 [facility] Influenza Virus 2020-02-06 Completed Universit y of Vaccine Quad .5 mL 00:00:00 [facility] Influenza Virus 2020-02-05 Completed Universit y of Vaccine Quad .5 mL 00:00:00 [facility] Influenza Virus 2020-02-05 Completed Universit y of Vaccine Quad .5 mL 00:00:00 [facility] Influenza Virus 2020-02-05 Completed Universit y of Vaccine Quad .5 mL 00:00:00 [facility] Influenza Virus 2020-02-05 Completed Universit y of Vaccine Quad .5 mL 00:00:00 [facility] Influenza Virus 2020-02-05 Completed Universit y of Vaccine Quad .5 mL 00:00:00 [facility] Influenza Virus 2020-02-05 Completed Universit y of Vaccine Quad .5 mL 00:00:00 [facility] Influenza Virus 2020-02-05 Completed Universit y of Vaccine Quad .5 mL 00:00:00 [facility] Influenza Virus 2020-02-05 Completed Universit y of Vaccine Quad .5 mL 00:00:00 [facility] Influenza Virus 2020-02-05 Completed Universit y of Vaccine Quad .5 mL 00:00:00 [facility] Influenza Virus 2020-02-05 Completed Universit y of Vaccine Quad .5 mL 00:00:00 [facility] Influenza Virus 2020-02-05 Completed Universit y of Vaccine Quad .5 mL 00:00:00 [facility] Influenza Virus 2020-02-05 Completed Universit y of Vaccine Quad .5 mL 00:00:00 [facility] Influenza Virus 2020-02-05 Completed Universit y of Vaccine Quad .5 mL 00:00:00 [facility] Influenza Virus 2020-02-05 Completed Universit y of Vaccine Quad .5 mL 00:00:00 [facility] Influenza Virus 2020-02-05 Completed Universit y of Vaccine Quad .5 mL 00:00:00 [facility] Influenza Virus 2020-02-05 Completed Universit y of Vaccine Quad .5 mL 00:00:00 [facility] Influenza Virus 2020-02-05 Completed Universit y of Vaccine Quad .5 mL 00:00:00 [facility] Influenza Virus 2020-02-05 Completed Universit y of Vaccine Quad .5 mL 00:00:00 [facility] Influenza Virus 2020-02-05 Completed Universit y of Vaccine Quad .5 mL 00:00:00 [facility] Influenza Virus 2020-02-05 Completed Universit y of Vaccine Quad .5 mL 00:00:00 [facility] Influenza Virus 2020-02-05 Completed Universit y of Vaccine Quad .5 mL 00:00:00 [facility] Influenza Virus 2020-02-05 Completed Universit y of Vaccine Quad .5 mL 00:00:00 [facility] Influenza Virus 2020-02-05 Completed Universit y of Vaccine Quad .5 mL 00:00:00 [facility] Influenza Virus 2020-02-05 Completed Universit y of Vaccine Quad .5 mL 00:00:00 [facility] Influenza Virus 2020-02-05 Completed Universit y of Vaccine Quad .5 mL 00:00:00 [facility] Influenza Virus 2020-02-05 Completed Universit y of Vaccine Quad .5 mL 00:00:00 [facility] Influenza Virus 2020-02-05 Completed Universit y of Vaccine Quad .5 mL 00:00:00 [facility] Influenza Virus 2020-02-05 Completed Universit y of Vaccine Quad .5 mL 00:00:00 [facility] Influenza Virus 2020-02-05 Completed [facility]it y of Vaccine Quad .5 mL 00:00:00 [facility] Influenza Virus 2020-02-05 Completed Universit y of Vaccine Quad .5 mL 00:00:00 [facility] Influenza Virus 2020-02-05 Completed Universit y of Vaccine Quad .5 mL 00:00:00 [facility] 6+ MO [facility] Influenza Virus 2020-02-05 Completed Universit y of Vaccine Quad .5 mL 00:00:00 [facility] 6+ MO Branch Vital Signs Vital Name Observation Time Observation Value Comments Source Systolic blood 2022-11-16 15:57:00 135 mm[Hg] Univer sity of pressure [facility] Diastolic blood 2022-11-16 15:57:00 78 mm[Hg] Unive rsity of [facility] Heart rate 2022-11-16 15:52:00 86 /min [facility] Body temperature 2022-11-16 15:52:00 36.67 Patience [facility] Body height 2022-11-16 15:52:00 172.7 cm [facility] Body weight 2022-11-16 15:52:00 126.327 kg [facility] BMI 2022-11-16 15:52:00 42.35 kg/m2 [facility] Oxygen saturation in 2022-11-16 15:52:00 97 /min [facility] Arterial blood by [facility] Pulse oximetry Branch Systolic blood 2022-10-03 13:40:00 131 mm[Hg] Univer sity of pressure [facility] Diastolic blood 2022-10-03 13:40:00 84 mm[Hg] Unive rsity of pressure [facility] Heart rate 2022-10-03 13:40:00 63 /min [facility] Body temperature 2022-10-03 13:40:00 36.78 Patience Univ ers[facility] Body height 2022-10-03 13:40:00 172.7 cm [facility] Body weight 2022-10-03 13:40:00 123.787 kg [facility] BMI 2022-10-03 13:40:00 41.49 kg/m2 [facility] Oxygen saturation in 2022-10-03 13:40:00 98 /min [facility]terial blood by [facility] P[facility]xim[facility] Systolic blood 2022-08-07 14:09:00 131 mm[Hg] Univer sity of pressure [facility] Diastolic blood 2022-08-07 14:09:00 83 mm[Hg] Unive rsity of pressure [facility] Heart rate 2022-08-07 14:09:00 57 /min [facility] Body temperature 2022-08-07 14:09:00 36.5 Patience [facility] Body height 2022-08-07 14:09:00 170.2 cm [facility] Body weight 2022-08-07 14:09:00 125.646 kg [facility] BMI 2022-08-07 14:09:00 43.38 kg/m2 [facility] Oxygen saturation in 2022-08-07 14:09:00 98 /min University of Arterial blood by [facility] wolf Pulse oximetry Branch Systolic blood 2022-06-29 15:16:00 135 mm[Hg] Univer sity of pressure [facility] Diastolic blood 2022-06-29 15:16:00 86 mm[Hg] Unive rsity of pressure [facility] Heart rate 2022-06-29 15:16:00 80 /min [facility] Body temperature 2022-06-29 15:16:00 36.83 Patience [facility] Body height 2022-06-29 15:16:00 172.7 cm [facility] Body weight 2022-06-29 15:16:00 125.646 kg [facility] BMI 2022-06-29 15:16:00 42.12 kg/m2 [facility] Oxygen saturation in 2022-06-29 15:16:00 99 /min [facility] Arterial blood by [facility] Pulse oxim[facility] Systolic blood 2022-06-08 14:15:00 135 mm[Hg] Univer sity of pressure [facility] Diastolic blood 2022-06-08 14:15:00 83 mm[Hg] Unive rsity of pressure [facility] Heart rate 2022-06-08 14:09:00 73 /min [facility] Body height 2022-06-08 14:09:00 172.7 cm [facility] Body weight 2022-06-08 14:09:00 125.964 kg [facility] BMI 2022-06-08 14:09:00 42.22 kg/m2 [facility] Oxygen saturation in 2022-06-08 14:09:00 97 /min University of Arterial blood by [facility] wolf Pulse oximetry Branch Systolic blood 2022-04-11 13:22:00 127 mm[Hg] Univer sity of pressure [facility] Diastolic blood 2022-04-11 13:22:00 85 mm[Hg] Unive rsity of pressure [facility] Heart rate 2022-04-11 13:22:00 71 /min [facility] Body height 2022-04-11 13:22:00 172.7 cm [facility] Body weight 2022-04-11 13:22:00 124.603 kg [facility] BMI 2022-04-11 13:22:00 41.77 kg/m2 [facility] Oxygen saturation in 2022-04-11 13:22:00 98 /min University of Arterial blood by [facility] wolf Pulse oximetry Branch Systolic blood 2022-01-31 12:57:00 136 mm[Hg] Univer sity of pressure [facility] Diastolic blood 2022-01-31 12:57:00 85 mm[Hg] Unive rsity of pressure [facility] Heart rate 2022-01-31 12:57:00 81 /min [facility] Body temperature 2022-01-31 12:57:00 36.94 Patience [facility] Body weight 2022-01-31 12:57:00 123.832 kg [facility] BMI 2022-01-31 12:57:00 42.76 kg/m2 [facility] Procedures Procedure Date / Time Performed Performing Clinician Naun bell [facility] PATIENT 2022-10-03 13:29:21 Doctor Unassigned, No Salmaer [facility] FINANCIAL POLICY Name Medical Branch Encounters Start End Encounter Admission Attending Care Care Encounter Source Date/Time Date/Time Type Type Clinicians Facility Department ID 2022-11-16 2022-11-16 Office [facility] [id number] Univers 12:15:00 12:30:00 Visit [facility] [id number] it y of [place] [id number] Jason as DANIEL?BLEA [id number] [address] MEDICAL OFFICE [facility] 2022-11-16 2022-11-16 Outpatient R [facility] [id number] Univers 12:15:00 12:15:00 [place] lana [facility] 2022-11-15 2022-11-15 Telephone [facility] [id number] Univers 00:00:00 00:00:00 [facility] [id number] it y of [place] [id number] Jason as DANIEL?BLEA [id number] [address] MEDICAL OFFICE [facility] 2022-10-04 2022-10-04 Telephone [facility] [id number] Univers 00:00:00 00:00:00 [facility] [id number] it y of [place] [id number] Jason as DANIEL?BLEA [id number] [address] MEDICAL OFFICE [facility] 2022-10-03 2022-10-03 Office [facility] [id number] Univers 08:45:00 09:00:00 Visit [facility] [id number] it y of [place] [id number] Jason as DANIEL?BLEA [id number] [address] MEDICAL OFFICE [facility] 2022-10-03 2022-10-03 Outpatient R [facility] [id number] Univers 08:45:00 08:45:00 [place] ity of [facility] 2022-10-03 2022-10-03 Orders Doctor TING [id number] Univers 00:00:00 00:00:00 Only Unassigned, GAURANG [id number] ity of [place] [facility] [id number] Jason as [id number] [address] 2022-10-03 2022-10-03 Telephone [facility] [id number] Univers 00:00:00 00:00:00 [facility] [id number] it y of [place] [id number] Jason as DANIEL?BLEA [id number] [address] OFFICE [facility] 2022-09-12 2022-09-12 Telephone [facility] [id number] Univers 00:00:00 00:00:00 [facility] [id number] it y of [place] [id number] Jason as DANIEL?BLEA [id number] [address] OFFICE [facility] 2022-09-07 2022-09-07 Telephone [facility] [id number] Univers 00:00:00 00:00:00 [facility] [id number] it y of [place] [id number] Jason as DANIEL?BLEA [id number] [address] OFFICE [facility] 2022-09-06 2022-09-06 Telephone [facility] [id number] Univers 00:00:00 00:00:00 [facility] [id number] it y of [place] [id number] Jason as DANIEL?BLEA [id number] [address] OFFICE [facility] 2022-09-01 2022-09-01 Telephone [facility] [id number] Univers 00:00:00 00:00:00 [facility] [id number] it y of [place] [id number] Jason as DANIEL?BLEA [id number] Oh tabby MAN [address] [place] [address] OFFICE [facility] 2022-09-01 2022-09-01 Telephone [facility] [id number] Univers 00:00:00 00:00:00 [facility] [id number] it y of [place] [id number] Jason as DANIEL?BLEA [id number] Oh tabby [address] OFFICE [facility] 2022-08-17 2022-08-17 Refill [facility] [id number] Univers 00:00:00 00:00:00 [facility] [id number] it y of [place] [id number] Jason as DANIEL?BLEA [id number] Oh tabby MAN [address] [place] [address] OFFICE [facility] 2022-08-07 2022-08-07 [facility], Ang - Db [facility] [id number] Univers 08:45:00 09:00:00 Visit [place] [facility] [id number] ity of [facility] [id number] Jason as DANIEL?BLEA [id number] [facility] ANIL [address] [facility] OFFICE [facility] 2022-08-07 2022-08-07 Outpatient R [facility] [id number] Univers 08:45:00 08:45:00 [place] ity [facility] 2022-08-07 2022-08-07 Office [facility] [id number] Univers 08:30:00 08:45:00 Visit [facility] [id number] it y of [place] [id number] Jason as DANIEL?BLEA [id number] Oh davidnh ANIL[address] OFFICE [facility] 2022-08-07 2022-08-07 Telephone [facility] 1.2.797.064 [id number] Univers 00:00:00 00:00:00 [facility] 350.1.13.10 it y of [place] 4.2.7.2.686 Jason as DANIEL?BLEA [id number] [address] MEDICAL OFFICE [facility] 2022-07-06 2022-07-06 Refill Doctor [facility] 1.2.840.114 [id number] Univers 00:00:00 00:00:00 Unassigned, HEALTH 350.1.13.10 ity of [place] 4.2.7.2.686 Jason as DANIEL?BLEA [phone] [address] OFFICE [facility] 2022-07-06 2022-07-06 Refill Doctor [facility] 1.2.840.114 [id number] Univers 00:00:00 00:00:00 Unassigned, HEALTH 350.1.13.10 ity of [place] 4.2.7.2.686 Jason as DANIEL?BLEA [id number] [address] OFFICE [facility] 2022-06-29 2022-06-29 Outpatient [facility] [id number] Univers 09:30:00 09:41:28 [place] ity [facility] 2022-06-29 2022-06-29 Office [facility] 1.2.840.114 [id number] Univers 09:30:00 09:41:28 Visit [facility] 350.1.13.10 it y of [place] 4.2.7.2.686 Jason as DANIEL?BLEA [id number] [address] OFFICE [facility] 2022-06-29 2022-06-29 Telephone [facility] 1.2.211.351 [id number] Univers 00:00:00 00:00:00 [place] [facility]ALTH 350.1.13.10 it y of [place] 4.2.7.2.686 Jason as DANIEL?BLEA [id number] [address] OFFICE [facility] 2022-06-08 2022-06-08 Office [facility] 1.2.840.114 [id number] Univers 08:30:00 08:45:00 Visit [facility] 350.1.13.10 it y of [place] 4.2.7.2.686 Jason as DANIEL?BLEA [id number] [address] MEDICAL OFFICE [facility] 2022-06-08 2022-06-08 Outpatient R RAY [facility] [id number] Univers 08:30:00 08:30:00 [place] vicente [facility] 2022-06-02 2022-06-02 Telephone Ray [facility] 1.2.582.480 [id number] Univers 00:00:00 00:00:00 [facility] 350.1.13.10 it y of [place] 4.2.7.2.686 Jason as DANIEL?BLEA [id number] [address] MEDICAL OFFICE [facility] 2022-06-01 2022-06-01 Refill Doctor [facility] 1.2.840.114 [id number] Univers 00:00:00 00:00:00 Unassigned, HEALTH 350.1.13.10 ity of [place] 4.2.7.2.686 Jason as DANIEL?BLEA [phone] [address] MEDICAL OFFICE [facility] 2022-05-08 2022-05-08 Refill Doctor [facility] 1.2.840.114 [id number] Univers 00:00:00 00:00:00 Unassigned, HEALTH 350.1.13.10 ity of [place] 4.2.7.2.686 Jason as DANIEL?BLEA [id number] [address] MEDICAL OFFICE [facility] 2022-04-11 2022-04-11 Office [facility] 1.2.840.114 [id number] Univers 08:30:00 08:45:00 Visit [facility] 350.1.13.10 it y of [place] 4.2.7.2.686 Jason as DANIEL?BLEA [id number] [address] MEDICAL OFFICE [facility] 2022-04-11 2022-04-11 Outpatient R RAY [facility] [id number] Univers 08:30:00 08:30:00 [place] vicente [facility] 2022-03-09 2022-03-09 Outpatient R RAY [facility] [id number] Univers 07:45:00 07:45:00 [place] ity [facility] 2022-03-09 2022-03-09 Outpatient R RAY [facility] [id number] Univers 07:45:00 07:45:00 [place] ity [facility] 2022-03-09 2022-03-09 Outpatient R RAY [facility] [id number] Univers 07:45:00 07:45:00 [place] ity [facility] 2022-03-09 2022-03-09 Telephone [facility] 1.2.623.384 [id number] Univers 00:00:00 00:00:00 [place] HEALTH 350.1.13.10 it y of [place] 4.2.7.2.686 Jason as DANIEL?BLEA [phone] [address] OFFICE [facility] 2022-03-07 2022-03-07 Refill Doctor [facility] 1.2.840.114 [id number] Univers 00:00:00 00:00:00 Unassigned, HEALTH 350.1.13.10 ity of [place] 4.2.7.2.686 Jason as DANIEL?BLEA [phone] [address] OFFICE [facility] 2022-03-07 2022-03-07 Refill Doctor [facility] 1.2.840.114 [id number] Univers 00:00:00 00:00:00 Unassigned, HEALTH 350.1.13.10 ity of [place] 4.2.7.2.686 Jason as DANIEL?BLEA [id number] [address] MEDICAL OFFICE [facility] 2022-02-08 2022-02-08 Refill Doctor [facility] 1.2.840.114 [id number] Univers 00:00:00 00:00:00 Unassigned, HEALTH 350.1.13.10 ity of [place] 4.2.7.2.686 Jason as DANIEL?BLEA [phone] [address] MEDICAL OFFICE [facility] 2022-02-08 2022-02-08 Refill Doctor [facility] 1.2.840.114 [id number] Univers 00:00:00 00:00:00 Unassigned, HEALTH 350.1.13.10 ity of [place] 4.2.7.2.686 Jason as DANIEL?BLEA [id number] [address] MEDICAL OFFICE [facility] 2022-01-31 2022-01-31 Outpatient R RAY [facility] [id number] Univers 08:30:00 09:39:26 [place] lana [facility] 2022-01-31 2022-01-31 Office [facility] 1.2.840.114 [id number] Univers 08:30:00 08:45:00 Visit [facility] 350.1.13.10 it y of [place] 4.2.7.2.686 Jason as DANIEL?BLEA [phone] [address] OFFICE [facility] 2022-01-31 2022-01-31 Outpatient R RAY [facility] [id number] Univers 08:30:00 08:30:00 [facility] 2022-01-31 2022-01-31 Outpatient R BELL[facility] [id number] Univers 08:30:00 08:30:00 [facility] 2022-01-31 2022-01-31 Outpatient [facility] [id number] Univers 08:30:00 08:30:00 [facility] 2022-01-31 2022-01-31 Telephone [facility] 1.2.554.441 [id number] Univers 00:00:00 00:00:00 [place] HEALTH 350.1.13.10 it y of [place] 4.2.7.2.686 Jason as DANIEL?BLEA [id number] [address] OFFICE [facility] 2022-01-29 2022-01-29 Refill Pantera [facility] 1.2.840.114 [id number] Univers 00:00:00 00:00:00 [place] HEALTH 350.1.13.10 it y of [place] 4.2.7.2.686 Jason as DANIEL?BLEA [phone] Oh tabby MAN [address] [place] [address] OFFICE [facility] 2022-01-12 2022-01-12 Office [facility] 1.2.840.114 [id number] Univers 08:45:00 09:00:00 Visit [facility] 350.1.13.10 it y of [place] 4.2.7.2.686 Jason as DANIEL?BLEA [phone] Oh tabby MAN [address] [place] [address] OFFICE [facility] 2022-01-12 2022-01-12 Outpatient R [facility]AY [facility] [id number] Univers 08:45:00 08:45:00 [facility] 2022-01-12 2022-01-12 Outpatient [facility] [id number] Univers 08:45:00 08:45:00 [facility] 2022-01-04 2022-01-04 Outpatient R GAURAV [facility] [id number] Univers 12:20:00 12:20:00 ALESSIA vicente o f [facility] 2022-01-04 2022-01-04 [facility]ill [facility] 1.2.840.114 [id number] Univers 00:00:00 00:00:00 [facility] 350.1.13.10 it y of [place] 4.2.7.2.686 Jason as DANIEL?BLEA [phone] Oh tabby MAN [address] [place] [address] OFFICE [facility] 2022-01-04 2022-01-04 Telephone [facility] 1.2.698.685 [id number] Univers 00:00:00 00:00:00 [place] HEALTH 350.1.13.10 it y of [place] 4.2.7.2.686 Jason as DANIEL?BLEA [phone] Oh tabby MAN [address] [place] [address] OFFICE [facility] 2021-12-20 2021-12-20 Telephone [facility] 1.2.472.940 [id number] Univers 00:00:00 00:00:00 [facility] 350.1.13.10 it y of [place] 4.2.7.2.686 Jason as DANIEL?BLEA [phone] [address] MEDICAL OFFICE [facility] 2021-12-17 2021-12-17 Refill Doctor [facility] 1.2.840.114 [id number] Univers 00:00:00 00:00:00 Unassigned, HEALTH 350.1.13.10 ity of [place] 4.2.7.2.686 Jason as DANIEL?BLEA [id number] [address] MEDICAL OFFICE [facility] 2021-12-17 2021-12-17 Refill Ray [facility] 1.2.840.114 [id number] Univers 00:00:00 00:00:00 [facility] 350.1.13.10 it y of [place] 4.2.7.2.686 Jason as DANIEL?BLEA [id number] [address] OFFICE [facility] 2021-12-13 2021-12-13 Refill Doctor [facility] 1.2.840.114 [id number] Univers 00:00:00 00:00:00 Unassigned, HEALTH 350.1.13.10 ity of [place] 4.2.7.2.686 Jason as DANIEL?BLEA [phone] [address] MEDICAL OFFICE [facility] 2021-12-07 2021-12-07 Refill Doctor [facility] 1.2.840.114 [id number] 50 Univers 00:00:00 00:00:00 Unassigned, HEALTH 350.1.13.10 ity of [place] 4.2.7.2.686 Jason as DANIEL?BLEA [phone] [address] MEDICAL OFFICE BUILDING 2021-11-15 2021-11-15 Office Ray [facility] 1.2.840.114 [id number] Univers 08:30:00 08:45:00 Visit [facility] 350.1.13.10 it y of [place] 4.2.7.2.686 Jason as DANIEL?BLEA [id number] [address] MEDICAL OFFICE [facility] 2021-11-15 2021-11-15 Outpatient R RAY [facility] [id number] Univers 08:30:00 08:30:00 [place] itlana [facility] 2021-11-15 2021-11-15 Outpatient Fidel BELL [facility] [id number] Univers 08:30:00 08:20:33 [place] vicente [facility] 2021-10-17 2021-10-17 Refill Doctor [facility] 1.2.840.114 [id number] Univers 00:00:00 00:00:00 Unassigned, HEALTH 350.1.13.10 ity of [place] 4.2.7.2.686 Jason as DANIEL?BLEA [phone] [address] OFFICE [facility] 2021-09-13 2021-09-13 Office Ray [facility] 1.2.840.114 [id number] Univers 08:30:00 08:45:00 Visit [facility] 350.1.13.10 it y of [place] 4.2.7.2.686 Jason as DANIEL?BLEA [phone] [address] OFFICE [facility] 2021-09-13 2021-09-13 Outpatient Fidel BELL [facility] [id number] Univers 08:30:00 08:30:00 [place] vicente [facility] 2021-09-13 2021-09-13 Outpatient [facility] [id number] Univers 08:30:00 08:30:00 [place] vicente [facility] 2021-08-31 2021-08-31 Refill Doctor [facility] 1.2.840.114 [id number] Univers 00:00:00 00:00:00 Unassigned, HEALTH 350.1.13.10 ity of [place] 4.2.7.2.686 Jason as PROFESSIO [phone] [address] OFFICE [facility] ONE 2021-08-31 2021-08-31 Refill Doctor [facility] 1.2.840.114 [id number] Univers 00:00:00 00:00:00 Unassigned, HEALTH 350.1.13.10 ity of [place] 4.2.7.2.686 Jason as PROFESSIO [phone] [facility] NAL [address] [place] [address] OFFICE [facility] ONE 2021-08-25 2021-08-25 Outpatient Fidel BELL [facility] [id number] Univers 08:45:00 08:45:00 [place] vicente [facility] 2021-08-25 2021-08-25 Outpatient Fidel BELL [facility] [id number] Univers 08:45:00 08:45:00 [place] vicente [facility] 2021-08-24 2021-08-24 Outpatient Fidel [facility]LL [facility] [id number] Univers 14:15:00 14:15:00 [place] vicente [facility] 2021-08-18 2021-08-18 [facility] 1.2.840.114 [id number] Univers 00:00:00 00:00:00 [place] HEALTH 350.1.13.10 it y of [place] 4.2.7.2.686 Jason as PROFESSIO [phone] [address] ONE 2021-08-18 2021-08-18 Refill Doctor [facility] 1.2.840.114 [id number] Univers 00:00:00 00:00:00 Unassigned, HEALTH 350.1.13.10 ity of [place] 4.2.7.2.686 Jason as PROFESSIO [phone] [facility] NAL [address] [place] [address] ONE 2021-08-17 2021-08-17 Refill Doctor [facility] 1.2.840.114 [id number] Univers 00:00:00 00:00:00 Unassigned, HEALTH 350.1.13.10 ity of [place] 4.2.7.2.686 Jason as PROFESSIO [phone] [address] ONE 2021-08-16 2021-08-16 Refill Doctor [facility] 1.2.840.114 [id number] Univers 00:00:00 00:00:00 Unassigned, HEALTH 350.1.13.10 ity of [place] 4.2.7.2.686 Jason as PROFESSIO [phone] [address] ONE 2021-07-20 2021-07-20 Refill Doctor [facility] 1.2.840.114 [id number] Univers 00:00:00 00:00:00 Unassigned, HEALTH 350.1.13.10 ity [place] 4.2.7.2.686 Jason as PROFESSIO [id number] [address] 2021-06-28 2021-06-28 [facility] 1.2.840.114 [id number] Univers 00:00:00 00:00:00 [facility] 350.1.13.10 it y of [place] 4.2.7.2.686 Jason as PROFESSIO [phone] [facility] SYDNEE [address] [place] [address] 2021-06-27 2021-06-27 [facility], Ang - Db [facility] 1.2.840.1 14 [id number] Univers 09:15:00 09:30:00 Visit [place] [facility] 350.1.13.10 ity of [place] 4.2.7.2.686 Jason as DANIEL?BLEA [phone] Oh tabby [address] OFFICE [facility] 2021-06-27 2021-06-27 Outpatient [facility] [id number] Univers 09:15:00 09:15:00 [place] itlana [facility] 2021-06-27 2021-06-27 Office [facility] 1.2.840.114 [id number] Univers 08:45:00 09:00:00 Visit [facility] 350.1.13.10 it y of [place] 4.2.7.2.686 Jason as DANIEL?BLEA [phone] Oh david[address] OFFICE [facility] 2021-06-27 2021-06-27 Outpatient [facility] [id number] Univers 08:45:00 08:45:00 [place] itlana [facility] 2021-06-27 2021-06-27 Orders Doctor MAGUIRE 1.2.840.114 [id number] Univers 00:00:00 00:00:00 Only Unassigned, GAURANG 350.1.13.10 ity of [place] [facility] 4.2.7.2.686 Jason as [id number] [address] 2021-06-22 2021-06-22 Refill Doctor [facility] 1.2.840.114 [id number] Univers 00:00:00 00:00:00 Unassigned, HEALTH 350.1.13.10 ity of [place] 4.2.7.2.686 Jason as PROFESSIO [phone] Oh dical NAL [address] [place] [address] 2021-06-22 2021-06-22 Refill Doctor [facility] 1.2.840.114 [id number] Univers 00:00:00 00:00:00 Unassigned, HEALTH 350.1.13.10 ity of [place] 4.2.7.2.686 Jason as PROFESSIO [phone] Oh dical NAL [address] [place] [address] 2021-05-23 2021-05-23 Refill Doctor [facility] 1.2.840.114 [id number] 75 Univers 00:00:00 00:00:00 Unassigned, HEALTH 350.1.13.10 ity of [place] 4.2.7.2.686 Jason as PROFESSIO [phone] Oh dicnh NAL [address] [place] [address] 2021-05-02 2021-05-02 Outpatient Fidel [facility]LL [facility] [id number] Univers 08:45:00 08:59:02 [place] vicente [facility] 2021-05-02 2021-05-02 Office [facility] 1.2.840.114 [id number] Univers 08:38:23 08:53:23 Visit [facility] 350.1.13.10 it y of [place] 4.2.7.2.686 Jason as DANIEL?BLEA [phone] Oh dicshannon MAEY [address] [place] [address] 2021-05-02 2021-05-02 Outpatient Fidel [facility]LL [facility] [id number] Univers 08:45:00 08:45:00 [place] vicente [facility] 2021-04-22 2021-04-22 Refill Doctor [facility] 1.2.840.114 [id number] Univers 00:00:00 00:00:00 Unassigned, HEALTH 350.1.13.10 ity of [place] 4.2.7.2.686 Jason as PROFESSIO [phone] [facility] SYDNEE [address] [place] [address] OFFICE [facility] ONE 2021-04-21 2021-04-21 [facility]ill [facility] 1.2.840.114 [id number] Univers 00:00:00 00:00:00 [facility] 350.1.13.10 it y of [place] 4.2.7.2.686 Jason as PROFESSIO [phone] [facility] SYDNEE [address] [place] [address] OFFICE [facility] ONE 2021-03-31 2021-03-31 Orders Doctor TING 1.2.840.114 [id number] Univers 00:00:00 00:00:00 Only Unassigned, GAURANG 350.1.13.10 ity of [place] [facility] 4.2.7.2.686 Jason as [phone] [address] 2021-03-29 2021-03-29 Telephone [facility] 1.2.840.114 [id number] Univers 00:00:00 00:00:00 [facility] 350.1.13.10 it y of [place] 4.2.7.2.686 Jason as Daniel?Blea [phone] [address] Medical Office [facility] 2021-03-28 2021-03-28 Refill [facility] 1.2.840.114 [id number] Univers 00:00:00 00:00:00 [facility] 350.1.13.10 it y of [place] 4.2.7.2.686 Jason as Daniel?Blea [phone] [address] Medical Office Building 2021-03-28 2021-03-28 Refill Doctor [facility] 1.2.840.114 [id number] 73 Univers 00:00:00 00:00:00 Unassigned, Health 350.1.13.10 ity of [place] 4.2.7.2.686 Jason as Daniel?Blea [phone] [address] Medical Office Building 2021-03-05 2021-03-05 [facility] 1.2.360.313 [id number] Univers 10:15:44 23:59:00 Encounter [facility] 350.1.13.10 ity of [place] 4.2.7.2.686 Jason as Daniel?Blea [phone] Oh tabby man [address] [facility] Office Building 2021-03-05 2021-03-05 Outpatient R GAURAV [facility] [id number] Univers 10:15:44 23:59:00 ALESSIA cinthia o f [facility] 2021-03-05 2021-03-05 Urgent Gaurav Alessia [facility] 1.2.840. 114 [id number] Univers 09:50:47 10:52:52 Care [facility] 350.1.13.10 ity of [place] 4.2.7.2.686 Jason as Daniel?Blea [phone] Oh tabby man [address] Medical Office [facility] 2021-02-28 2021-02-28 Outpatient R RAY [facility] [id number] Univers 09:00:00 09:00:00 [place] vicente [facility] 2021-02-28 2021-02-28 Office [facility] 1.2.840.114 [id number] Univers 08:14:06 08:29:06 Visit [facility] 350.1.13.10 it y of [place] 4.2.7.2.686 Jason as Daniel?Blea [phone] Oh tabby man 044 [facility] Office Building 2021-01-26 2021-01-26 Refill [facility] 1.2.840.114 [id number] 08 Univers 00:00:00 00:00:00 [facility] 350.1.13.10 it y of [place] 4.2.7.2.686 Jason as Professio [phone] Oh tabby nal [address] Office Building One 2021-01-26 2021-01-26 Refdaniel [facility] 1.2.840.114 [id number] 81 Univers 00:00:00 00:00:00 [facility] 350.1.13.10 it y of [place] 4.2.7.2.686 Jason as Professio [phone] Oh tabby nal [address] [facility] Building One 2020-12-28 2020-12-28 Outpatient R RAY [facility] [id number] Univers 09:30:00 09:30:00 [place] ity [facility] 2020-12-28 2020-12-28 Office [facility] 1.2.840.114 [id number] Univers 08:48:08 09:03:08 Visit [facility] 350.1.13.10 it y of [place] 4.2.7.2.686 Jason as Professio [phone] [address] Office Building One 2020-11-29 2020-11-29 Refill [facility] 1.2.840.114 [id number] 64 Univers 00:00:00 00:00:00 [facility] 350.1.13.10 it y of [place] 4.2.7.2.686 Jason as Professio [id number] [address] Office Building One 2020-11-01 2020-11-01 Telephone [facility] 1.2.498.652 [id number] Univers 00:00:00 00:00:00 [facility] 350.1.13.10 it y of [place] 4.2.7.2.686 Jason as Professio [id number] [address] Office Building One 2020-10-26 2020-10-26 Office [facility] 1.2.840.114 [id number] Univers 09:18:44 09:33:44 Visit [facility] 350.1.13.10 it y of [place] 4.2.7.2.686 Jason as Professio [id number] [address] Office Building One 2020-10-26 2020-10-26 Outpatient R RAY [facility] [id number] Univers 09:30:00 09:30:00 [place] ity [facility] 2020-10-26 2020-10-26 Orders Doctor MAGUIRE 1.2.840.114 [id number] Univers 00:00:00 00:00:00 Only Unassigned, GAURANG 350.1.13.10 ity of [place] [facility] 4.2.7.2.686 Jason as [phone] [address] 2020-10-11 2020-10-11 Outpatient R [facility]AY [facility] [id number] Univers 07:30:00 07:30:00 [place] vicente [facility] 2020-10-07 2020-10-07 [facility]daniel [facility] 1.2.840.114 [id number] Univers 00:00:00 00:00:00 [facility] 350.1.13.10 it y of [place] 4.2.7.2.686 Jason as Professio [phone] [address] Office [facility] One 2020-10-07 2020-10-07 Aaron [facility] 1.2.840.114 [id number] Univers 00:00:00 00:00:00 [facility] 350.1.13.10 it y of [place] 4.2.7.2.686 Jason as Professio [phone] [address] One 2020-10-02 2020-10-02 Telephone [facility] 1.2.747.725 [id number] Univers 00:00:00 00:00:00 [place] 350.1.13.10 [place].7.2.[place] Profess[place] [phone] [address] 2020-10-01 2020-10-01 [facility] 1.2.840.114 [id number] 70 Univers 00:00:00 00:00:00 [facility] 350.1.13.10 it y of [place] 4.2.7.2.686 Jason as Professio [phone] Oh dicnh nal [address] [place] [address] One 2020-09-01 2020-09-01 Telephone [facility] 1.2.378.479 [id number] Univers 00:00:00 00:00:00 [place] 350.1.13.10 [place]7.2.[place] Profess[place] [id number] [address] 2020-08-31 2020-08-31 Aaron [facility] 1.2.840.114 [id number] 08 Univers 00:00:00 00:00:00 [facility] 350.1.13.10 it y of [place] 4.2.7.2.686 Jason as Professio [phone] Oh dical nal [address] Office Building One 2020-08-24 2020-08-24 Patient [facility] 1.2.840.114 [id number] Univers 00:00:00 00:00:00 Outreach Brandan PRIMARY [id number] i ty of [facility] [id number] [phone] [address] 2020-08-15 2020-08-15 Outpatient R WILFRED [facility] [id number] Univers 08:35:00 08:35:00 LEANDRO [facility] 2020-08-11 2020-08-11 Outpatient R RAY [facility] [id number] Univers 07:45:00 07:45:00 WAGNER [facility] 2020-08-11 2020-08-11 [facility] 1.2.840.114 [id number] Univers 06:59:47 07:14:47 Visit [facility] [id number] it y [place] [id number] Jason as Professio [phone] Oh dical nal [address] [place] [address] Office [facility] [employer] 2020-08-06 2020-08-06 Telephone [facility] [id number] Univers 00:00:00 00:00:00 [facility] [id number] it y of [place] [id number] Jason as Professio [phone] Oh dical nal [address] [employer] [facility] [employer] 2020-08-04 2020-08-04 Refill Ray [facility] 1.2.840.114 [id number] Univers 00:00:00 00:00:00 [facility] [id number] it y [place] [id number] Jason as Professio [phone] Oh dical nal [address] [employer] [facility] [employer] 2020-07-30 2020-07-30 [facility]iel [facility] 1.2.840.114 [id number] Univers 00:00:00 00:00:00 [facility] [id number] it y of [place] [id number] Jason as Professio [phone] [address] Office [facility] One 2020-07-01 2020-07-01 Telephone [facility] [id number] Univers 00:00:00 00:00:00 [facility] [id number] it y [place] [id number] Jason as Professio [phone] [facility] nal [address] [place] [address] Office [facility] One 2020-05-31 2020-05-31 Office [facility] 1.2.840.114 [id number] Univers 09:10:11 09:25:11 Visit [facility] [id number] it y of [place] [id number] Jason as Professio [phone] [address] One 2020-05-31 2020-05-31 Outpatient Fidel RAY [facility] [id number] Univers 09:15:00 09:15:00 WAGNER itlana [facility] 2020-05-10 2020-05-10 Outpatient Fidel BELL [facility] [id number] Univers 08:00:00 08:00:00 WAGNER vicente [facility] 2020-05-06 2020-05-06 An[facility]adaniel [facility] 1.2.840.114 [id number] Univers 00:00:00 00:00:00 [facility] [id number] it y of [place] [id number] Jason as Professio [phone] Oh dicnh nal [address] [place] [address] Office [facility] One 2020-05-05 2020-05-05 [facility] 1.2.840.114 [id number] Univers 00:00:00 00:00:00 [facility] [id number] [place] y of [place] [id number] Jason as Professio [phone] [facility] nal 044 [facility] [place] 2020-04-05 2020-04-05 [facility] 1.2.840.114 [id number] Univers 00:00:00 00:00:00 [facility] [id number] it y of [place] [id number] Jason as Professio [phone] Oh dical nal 044 [facility] [place] 2020-03-29 2020-03-29 Hospital [facility] 1.2.840.114 [id number] Univers 14:15:00 23:59:00 Encounter Alexys Browning [id number] [id number] [phone] [facility] [address] [place] 2020-03-29 2020-03-29 Office Edilson [facility] [id number] Univers 14:36:25 16:04:04 Visit Alexys Laws [id number] it y of Surgical [id number] Jason as Specialti [phone] Oh dical es 198 [facility] 2020-03-29 2020-03-29 Outpatient [facility] [id number] Univers 15:00:00 15:00:00 ALEXYS ity [facility] 2020-03-29 2020-03-29 Orders Doctor TING 1.2.840.114 [id number] Univers 00:00:00 00:00:00 Only Unassigned, GAURANG 350.1.13.10 ity of [place] [facility] 4.2.7.2.686 Jason as [phone] [facility] [address] 2020-03-26 2020-03-26 Telephone [facility] 1.2.840.114 [id number] Univers 00:00:00 00:00:00 Alexys Laws [id number] it y of Surgical [id number] Jason as Specialti [phone] Oh dical es 198 [facility] 2020-03-22 2020-03-22 Telephone [facility] [id number] Univers 00:00:00 00:00:00 [facility] [id number] it y of [place] [id number] Jason as Professio [phone] Oh dical nal 044 [facility] [place] 2020-03-08 2020-03-08 Outpatient R RAY [facility] [id number] Univers 08:30:00 08:30:00 WAGNER vicente [facility] 2020-03-08 2020-03-08 Office [facility] 1.2.840.114 [id number] Univers 07:54:27 08:09:27 Visit Wagner Laws 350.1.13.10 it y of [place] [id number] Jason as Professio [phone] Oh dical nal 044 [facility] [place] 2020-02-26 2020-02-26 Refill [facility] 1.2.840.114 [id number] Univers 00:00:00 00:00:00 [facility] 350.1.13.10 it y of [place] [id number] Jason as Professio [phone] Oh dical nal [address] [place] [address] 2020-02-04 2020-02-04 [facility]patient [facility] [id number] Univers 09:15:00 09:15:00 WAGNER vicente [facility] 2020-02-04 2020-02-04 Office [facility] 1.2.840.114 [id number] Univers 08:53:38 09:08:38 Visit Wagner Browning 350.1.13.10 [id number] [phone] Oh dical nal 044 [facility] 2020-01-08 2020-01-08 Tariff Supervisor 2, Adc Lab [facility] 1.2.840.114 [id number] Univers 09:16:01 09:31:01 Visit Wagner Bell 350.1.13.10 ity of [place] [phone] Oh dical nal 353 [facility] 2020-01-08 2020-01-08 Outpatient [facility] [id number] Univers 09:15:00 09:15:00 WAGNER vicente [facility] 2020-01-08 2020-01-08 Office Ray [facility] 1.2.840.114 [id number] Univers 08:59:06 09:14:00 Visit Wagner Browning 350.1.13.10 [place] [phone] Oh dic[address] 2020-01-08 2020-01-08 Outpatient Fidel [facility] [id number] Univers 09:00:00 09:00:00 WAGNER vicente [facility] 2019-12-09 2019-12-09 Pre Visit [facility] [id number] Univers 00:00:00 00:00:00 Outreach Wagner Laws 350.1.13.10 i ty of [place] [id number] Jason as Professio [phone] [address] 2019-12-09 2019-12-09 Refill [facility] 1.2.840.114 [id number] Univers 00:00:00 00:00:00 [facility] 350.1.13.10 it y of [place] [id number] Jason as Professio [phone] [facility] nal [address] [place] [address] 2019-11-11 2019-11-11 Outpatient [facility]idel [facility] [id number] Univers 08:00:00 08:00:00 WAGNER vicente [facility] 2019-11-11 2019-11-11 Telemedici [facility] 1.2.840.114 [id number] Univers 07:26:10 07:41:10 ne Visit Wagner Browning 350.1.13.10 ity [place] [phone] Oh dical nal [address] [place] [address] 2019-10-08 2019-10-08 Refill [facility] 1.2.840.114 [id number] Univers 00:00:00 00:00:00 [facility] 350.1.13.10 it y of [place] [id number] Jason as Professio [phone] [address] One 2019-09-17 2019-09-17 Telephone [facility] 1.2.087.000 [id number] Univers 00:00:00 00:00:00 Wagner Browning 350.1.13.10 i ty [place] [phone] [address] 2019-09-10 2019-09-10 Telemedici [facility] 1.2.840.114 [id number] Univers 06:49:41 07:04:41 ne Visit Wagner [facility] 350.1.13.10 i ty of [place] 4.2.7.2.686 Jason as Professio [phone] [address] One 2019-09-10 2019-09-10 Outpatient [facility] [id number] Univers 07:00:00 07:00:00 WAGNER vicente [facility] 2019-08-29 2019-08-29 Telephone [facility] [id number] Univers 00:00:00 00:00:00 [facility] 350.1.13.10 it y of [place] 4.2.7.2.686 Jason as Professio [phone] [address] 2019-08-29 2019-08-29 Refill [facility] 1.2.840.114 [id number] Univers 00:00:00 00:00:00 [facility] 350.1.13.10 it y of [place] 4.2.7.2.686 Jason as Professio [phone] [address] 2019-08-14 2019-08-14 Ref[facility]iel [facility] 1.2.840.114 [id number] Univers 00:00:00 00:00:00 [facility] 350.1.13.10 it y of [place] 4.2.7.2.686 Jason as Professio [phone] [address] One 2019-08-11 2019-08-11 Refdaniel [facility] 1.2.840.114 [id number] Univers 00:00:00 00:00:00 [facility] 350.1.13.10 it y of [place] 4.2.7.2.686 Jason as Professio [phone] [address] Office Building One 2019-07-15 2019-07-15 Office Ray [facility]AG[facility] 1.2.840.114 [id number] Univers 06:57:16 07:12:16 Visit [facility] 350.1.13.10 it y of [place] 4.2.7.2.686 Jason as Professio [phone] [address] Office Building One 2019-07-14 2019-07-14 Orders Doctor TING 1.2.840.114 [id number] Univers 00:00:00 00:00:00 Only Unassigned, GAURANG 350.1.13.10 ity of [place] [facility] 4.2.7.2.686 Jason as [phone] [address] 2019-03-01 2019-03-01 Telephone [facility] [id number] Univers 00:00:00 00:00:00 [facility] 350.1.13.10 it y of [place] 4.2.7.2.686 Jason as Professio [phone] [address] Office Building One 2019-02-10 2019-02-10 Refdaniel [facility] 1.2.840.114 [id number] Univers 00:00:00 00:00:00 [facility] 350.1.13.10 it y of [place] 4.2.7.2.686 Jason as Professio [phone] [address] Office Building One 2019-01-31 2019-01-31 Telephone RayBURGIN, [place] [id number] Univers 00:00:00 00:00:00 [facility] 350.1.13.10 it y of [place] 4.2.7.2.686 Jason as Professio [phone] [address] Office Building One 2019-01-28 2019-01-28 Refill [facility] 1.2.840.114 [id number] Univers 00:00:00 00:00:00 Wagner Albumatic 350.1.13.10 it y of [place] 4.2.7.2.686 Jason as Professio [phone] [address] Office Building One 2019-01-13 2019-01-13 Office Ray [facility] 1.2.840.114 [id number] Univers 09:00:09 09:20:56 Visit WagnerElderscan 350.1.13.10 it y of [place] 4.2.7.2.686 Jason as Professio [phone] [address] Office Building One Results This patient has no known results.
[2022-11-17] MEDS ORDERED: LEVALBUTEROL 1.25 MG/3 ML NEB ONE (10:47)
--- NOTE | 2022-11-17 11:34 | RAD REPORT ---
EXAM DESCRIPTION: Ronnell Single View11/17/2022 11:16 am CLINICAL HISTORY: Cough COMPARISON: 1999 FINDINGS: The lungs appear clear of acute infiltrate. The heart is normal size IMPRESSION: No acute abnormalities displayed
[2022-11-17 11:36] LABS: SARS-CoV-2 Antigen Rapid Res Negative (Negative)
--- NOTE | 2022-11-17 12:00 | ER ---
Nurse's Notes [facility] Name: Seng Godfrey Age: 67 yrs Sex: Male : 1955 Arrival Date: 11/17/2022 Time: 10:07 Bed 15 Private MD: Aron Gonzalez S Diagnosis: Cough Presentation: 11/17 10:16 Chief complaint: Patient states: cough, congestion and shortness of breath that began 5 ss days ago. Pt was seen by his PCP and was given cough medication that is not helping. Coronavirus screen: Client presents with at least one sign or symptom that may indicate coronavirus-19. Ebola Screen: Patient denies exposure to infectious person. Patient denies travel to an Ebola-affected area in the 21 days before illness onset. Initial Sepsis Screen: Does the patient meet any 2 criteria? No. Patient's initial sepsis screen is negative. Does the patient have a suspected source of infection? No. Patient's initial sepsis screen is negative. Risk Assessment: Do you want to hurt yourself or someone else? Patient reports no desire to harm self or others. Onset of symptoms was November 12, 2022. 10:16 Method Of Arrival: Ambulatory ss 10:16 Acuity: MAU 3 ss Historical: - Allergies: 10:27 Talwin; ss - PMHx: 10:27 chronic back pain; ss - PSHx: 10:27 left arm; ss - Immunization history:: Client reports receiving the 2nd dose of the Covid vaccine. - Social history:: Smoking status: Patient reports the use of cigarette tobacco products, denies chronic smoking, but will smoke occasionally. Screenin:19 [facility] ED Fall Risk Assessment (Adult) History of falling in the last 3 months, nj1 including since admission No falls in past 3 months (0 pts) Confusion or Disorientation No (0 pts) Intoxicated or Sedated No (0 pts) Impaired Gait No (0 pts) Mobility Assist Device Used No (0 pt) Altered Elimination No (0 pt) Score/Fall Risk Level 0 - 2 = Low Risk Oriented to surroundings, Maintained a safe environment, Hourly rounding (assess needs \T\ fall precautionary measures) done. Abuse screen: Denies threats or abuse. Denies injuries from another. Nutritional screening: No deficits noted. Tuberculosis screening: No symptoms or risk factors identified. Assessment: 10:55 General: Appears in no apparent distress. uncomfortable, Behavior is calm, cooperative, nj1 appropriate for age. 10:55 Neuro: Level of Consciousness is awake, alert, obeys commands, Oriented to person, nj1 place, time, situation. Neuro: Reports Fatigue, malaise. Cardiovascular: Patient's skin is warm and dry. Respiratory: Airway is patent Respiratory effort is even, unlabored, Cough. 10:55 Pain: Complains of pain in abdomen and chest Pain currently is 4 out of 10 on a pain nj1 scale. Quality of pain is described as Aggravated by cough. 12:30 Reassessment: Patient appears in no apparent distress at this time. Patient and/or nj1 family updated on plan of care and expected duration. Pain level reassessed. Patient is alert, oriented x 3, equal unlabored respirations, skin warm/dry/pink. Pt ready to go home, standing by bedside upon entering his room. Does not want to wait any longer. Patient states feeling better. Critical care time stopped, patient has stabilized. Vital Signs: 10:16 BP 113 / 85; Pulse 105; Resp 18; Temp 98.1(O); Pulse Ox 99% on R/A; Weight 124.74 kg; ss Height 5 ft. 8 in. ; Pain 4/10; 11:18 BP 102 / 73; Pulse 95; Resp 22; Temp 98.1(O); Pulse Ox 97% ; nj1 12:00 BP 111 / 63; Pulse 89; Resp 19; Pulse Ox 98% on R/A; nj1 10:16 Body Mass Index 41.81 (124.74 kg, 172.72 cm) 10:16 Pain Scale: Adult ss ED Course: 10:10 Patient arrived in ED. im 10:10 Aron Gonzalez MD is Private Physician. im 10:11 Horace Soni PA is [facility]. m 10:11 Shivam Jackson MD is Attending Physician. jmm 10:17 Penny Anderson, SABINO is Primary Nurse. nj1 10:27 Triage completed. ss 10:27 Arm band placed on right wrist. ss 11:18 Chest Single View XRAY In Process Unspecified. EDMS 11:19 Patient has correct armband on for positive identification. Call light in reach. nj1 12:35 No provider procedures requiring assistance completed. nj1 12:35 Patient did not have IV access during this emergency room visit. nj1 Administered Medications: 10:57 Drug: Levalbuterol Inhalation 1.25 mg Route: Inhalation; nj1 12:30 Drug: Dexamethasone IM 10 mg Route: IM; Site: left gluteus; nj1 12:35 Follow up: Response: No adverse reaction nj1 Medication: 12:35 VIS not applicable for this client. nj1 Outcome: 11:59 Discharge ordered by MD. paula 12:35 Discharged to home ambulatory. nj1 12:35 Condition: stable 12:35 Discharge instructions given to patient, Instructed on discharge instructions, follow up and referral plans. medication usage, Demonstrated understanding of instructions, follow-up care, medications, Prescriptions given X 3. 12:35 Patient left the ED. nj1 Signatures: Dispatcher [employer] EDMS Horace Soni PA PA jmm Smirch, Shelby, RN RN Penny Anderson RN RN nj1 Mendoza, Itzel im Corrections: (The following items were deleted from the chart) 12:37 12:30 Reassessment: Patient appears in no apparent distress at this time. Patient nj1 and/or family updated on plan of care and expected duration. Pain level reassessed. Patient is alert, oriented x 3, equal unlabored respirations, skin warm/dry/pink. Patient states feeling better. Critical care time stopped, patient has stabilized. nj1 12:37 12:37 Patient left the ED. nj1 nj1
--- NOTE | 2022-11-17 12:01 | EDPHYS ---
Physician Documentation [facility] Name: Seng Godfrey Age: 67 yrs Sex: Male : 1955 Arrival Date: 11/17/2022 Time: 10:07 Bed 15 Private MD: Aron Gonzalez S ED Physician Shivam Jackson HPI: 11/17 10:28 This 67 yrs old Male presents to ER via Ambulatory with complaints of Cough, Chest jmm Congestion. 10:28 The patient or guardian reports cough. Onset: The symptoms/episode began/occurred jmm gradually, 5 day(s) ago. Modifying factors: The symptoms are alleviated by nothing, the symptoms are aggravated by nothing. Patient began antibiotics yesterday. Patient's main concern is his cough.. Historical: - Allergies: 10:27 Talwin; ss - PMHx: 10:27 chronic back pain; ss - PSHx: 10:27 left arm; ss - Immunization history:: Client reports receiving the 2nd dose of the Covid vaccine. - Social history:: Smoking status: Patient reports the use of cigarette tobacco products, denies chronic smoking, but will smoke occasionally. ROS: 10:28 Constitutional: Positive for body aches. jmm 10:28 Respiratory: Positive for cough, wheezing. 10:28 All other systems are negative. Exam: 10:28 Constitutional: This is a well developed, well nourished patient who is awake, alert, jmm and in no acute distress. Head/Face: atraumatic. Eyes: EOMI, no conjunctival erythema appreciated ENT: Moist Mucus Membranes Neck: Trachea midline, Supple Chest/axilla: Normal chest wall appearance and motion. Cardiovascular: Regular rate and rhythm. No edema appreciated Abdomen/GI: Non distended Back: Normal ROM Skin: General appearance color normal MS/ Extremity: Moves all extremities, no obvious deformities appreciated, no edema noted to the lower extremities Neuro: Awake and alert Psych: Behavior is normal, Mood is normal, Patient is cooperative and pleasant 10:28 Respiratory: the patient does not display signs of respiratory distress, Respirations: normal, Breath sounds: wheezing: that is mild, is scattered. Vital Signs: 10:16 BP 113 / 85; Pulse 105; Resp 18; Temp 98.1(O); Pulse Ox 99% on R/A; Weight 124.74 kg; ss Height 5 ft. 8 in. ; Pain 4/10; 11:18 BP 102 / 73; Pulse 95; Resp 22; Temp 98.1(O); Pulse Ox 97% ; nj1 12:00 BP 111 / 63; Pulse 89; Resp 19; Pulse Ox 98% on R/A; nj1 10:16 Body Mass Index 41.81 (124.74 kg, 172.72 cm) ss 10:16 Pain Scale: Adult ss MDM: 10:28 Patient medically screened. [facility] 12:34 Differential Diagnosis: Bronchitis Influenza Upper Respiratory Infection Viral Syndrome [facility] Pneumonia. Data reviewed: vital signs, nurses notes, lab test result(s), radiologic studies, plain films. I considered the following discharge prescriptions or medication management in the emergency department Medications were administered in the Emergency Department. See MAR. Independent interpretation of the following test(s) in the Emergency Department X-Ray: My interpretation is No pneumothorax appreciated. Counseling: I had a detailed discussion with the patient and/or guardian regarding: the historical points, exam findings, and any diagnostic results supporting the discharge/admit diagnosis, lab results, radiology results, the need for outpatient follow up, to return to the emergency department if symptoms worsen or persist or if there are any questions or concerns that arise at home. 11/17 10:33 Order name: SARS RAPID; Complete Time: 11:38 [facility] 11/17 10:33 Order name: Influenza Screen (a \T\ B); Complete Time: 11:49 [facility] 11/17 10:33 Order name: Chest Single View XRAY; Complete Time: 11:35 [facility] Administered Medications: 10:57 Drug: Levalbuterol Inhalation 1.25 mg Route: Inhalation; [facility] 12:30 Drug: Dexamethasone IM 10 mg Route: IM; Site: left gluteus; nj1 12:35 Follow up: Response: No adverse reaction nj1 Disposition Summary: 11/17/22 11:59 Discharge Ordered Location: Home [facility] Condition: Stable [facility] Diagnosis - Cough [facility] Followup: [facility] - With: Private Physician - When: 2 - 3 days - Reason: Recheck today's complaints, Continuance of care, Re-evaluation by your physician Discharge Instructions: - Discharge Summary Sheet [facility] - Cough, Adult [facility] Forms: - Medication Reconciliation Form [facility] - Thank You Letter [facility] - Antibiotic Education [facility] - Prescription Opioid Use [facility] Prescriptions: - albuterol sulfate 90 mcg/actuation Inhalation HFA Aerosol Inhaler - inhale 2 puff by INHALATION route every 4 hours As needed administer via [facility] ventilator; 1 unit; Refills: 0, Product Selection Permitted - promethazine-DM 6.25-15 mg/5 mL Oral syrup - administer 10 milliliter by ORAL route every 4 to 6 hours As needed; 200 jm milliliter; Refills: 0, Product Selection Permitted - Prednisone 20 mg Oral Tablet - take 3 tablets by ORAL route once daily for 5 days; 15 tablet; Refills: 0, [facility] Product Selection Permitted Signatures: Dispatcher [employer] EDHorace Hernández PA PA jmm Smirch, Shelby, RN RN ss Penny Anderson RN RN nj1
[2022-11-17] MEDS ORDERED: dexAMETHasone 10 MG/ML VIAL ONE (12:11)
[2022-11-17 12:41] VITALS: TEMP 98.1
[2022-11-17 12:45] VITALS: BP 111/63; O2SAT 98
== END 2022-11-17 12:37 | disposition home or self-care (01) ==
LOC: ER 10:07
DX: R05.9 Cough, unspecified (principal); F17.210 Nicotine dependence, cigarettes, uncomplicated; Z20.822 Contact with and (suspected) exposure to COVID-19; Z88.8 Allergy status to other drugs, medicaments and biological substances
CPT/HCPCS: 36415; 87804 ×2; 71045; 96372; 99284; 87811; J7614; J1100

== ENCOUNTER 2025-03-17 16:25 | Inpatient (IN) | payer OTHER ==
--- OUTSIDE RECORDS SUMMARY | 2025-03-17 16:34 | XMS REPORT | Continuity of Care Document ---
Author Name Unknown Address [address] [facility] [address] [place] [address] [facility] Address [address] 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 Role Phone ARON BELL Primary Care Physician UnavailFRIDA Chowdhury Attending Clinician Unavailable FRIDA COELHO Attending Clinician Unavailable ARON BELL Attending Clinician Unavailable Aron Bell MD Attending Clinician + Doctor Unassigned, [place] Attending Clinician U Wilmer Fisher MD Attending Clinician [phone] WILMER HANSON Attending Clinician Hailey Rankin LVN Attending Clinician Unavailable Kirti Nur LVN Attending Clinician Aron Monique MD Attending Clinician + ALEXYS WAGGONER Attending Clinician UnavailALEXYS Morales Attending Clinician Unavailsivan bell Doctor Unassigned, [place] Attending Clinician U Alexys Zeng MD Attending Clinician [phone] Lab, Ang - Db Attending Clinician Unavailable Nurse, Ang Db Attending Clinician Unavailable Pob, Adc Lab Main Attending Clinician UnavailDaryl Leos Attending Clinician [phone] Kirti Nur LVN Attending Clinician Wilmer Modi MD Attending Clinician [phone] RONY NOLASCO Attending Clinician UnavailRony Pittman Attending Clinician [phone] Jade Caro MD Attending Clinician [phone] Brandan Bazan DO Attending Clinician [phone] LEANDRO HARDIN Attending Clinician Unavailable 2, Adc Lab Attending Clinician Unavailable ALEXYS WAGGONER Admitting Clinician Alexys Andrade MD Admitting Clinician [phone] Payers Payer Name Policy Type Policy Number Effective Date Expirati on Date Source [employer] MC[employer] ADV PPO [id number] 2023 00:00:00 [employer] MEDICARE COMPLETE CHOICE [id number] 2018 00:00:00 Problems Condition Name Condition Details Condition Category Status Onset Date Resolution Date Last Treatment Date Treating Clinician Comments Source At risk for falls At risk for falls Disease Active 2022-06 00:00: 00 [facility] Unspecifie d abnormalit ies of gait and mobility Unspecifie d abnormalit ies of gait and mobility Disease Active 2022-06 00:00: 00 [facility] Other closed intra-asuncion cular fracture of distal end of left radius, initial encounter Other closed intra-asuncion cular fracture of distal end of left radius, initial encounter Disease Active 2022-06 0 00:00: 00 [facility] Pre-op testing Pre-op testing Disease Active 2022-06 0-04 00:00: 00 [facility] Insomnia, unspecifie d type Insomnia, unspecifie d type Disease Active 2016-06 00:00: 00 [facility] Chronic low back pain without sciatica, unspecifie d back pain laterality Chronic low back pain without sciatica, unspecifie d back pain laterality Disease Active 2016-06 00:00: 00 [facility] Anxiety Anxiety Disease Active 2016-06 00:00: 00 [facility] Erectile dysfunctio n, unspecifie d erectile dysfunctio n type Erectile dysfunctio n, unspecifie d erectile dysfunctio n type Disease Active 2016-06 00:00: 00 [facility] Allergies, Adverse Reactions, Alerts Allergy Name Allergy Type Status Severity Reaction(s) Onset Date Inactive Date Treating Clinician Comments Source PENTAZOC INE LACTATE DRUG INGREDI Active Med Hallucinates 2022-06 005 00:00: 00 [facility] Pentazoc ine Lactate Drug Allergy Active Hallucinatio ns 2022-06 005 00:00: 00 seizure [facility] NO KNOWN ALLERGIE S Drug Class Active [facility] Social History Social Habit Start Date Stop Date Quantity Comments Source History of tobacco use Occasional tobacco smoker [facility] Gender identity [facility] of Social function 2024-08-21 00:00:00 2024-08-21 00:00:00 [facility] Tobacco Comment 2023-03-22 00:00:00 2023-03-22 00:00:00 occasional [facility] Tobacco use and exposure 2023-03-22 00:00:00 2023-03-22 00:00:00 Smokeless tobacco non-user [facility] Exposure to SARS-CoV-2 (event) 2022-09-23 00:00:00 2022-10-03 08:27:00 Not sure [facility] Sex assigned at 1955 00:00:00 1955 00:00:00 [facility] Smoking Status Start Date Stop Date Source Occasional tobacco smoker 2023-03-22 00:00:00 [facility] Light tobacco smoker 2017-01-08 00:00:00 [facility] Medications Ordered Medication Name Filled Medication Name Start Date Stop Date Current Medication? Ordering Clinician Indication Dosage Frequency Signature (SIG) Comments Components Source ALPRAZolam 1 mg tablet 03-11 00:00: 00 Yes [id number] 1mg Take 1 tablet by mouth 3 times daily as needed for Other (anxiety). [facility] sildenafiL 100 mg tablet 03-11 00:00: 00 Yes [id number] TAKE 1 TABLET BY MOUTH EVERY DAY NEEDED [facility] zolpidem 10 mg tablet 9-24 00:00: 00 Yes [id number] 10mg Take 1 tablet by mouth at bedtime as needed for Insomnia. [facility] ALPRAZolam 1 mg tablet 8-26 00:00: 00 03-11 00:00 :00 No [id number] 1mg Take 1 tablet by mouth 3 times daily as needed for Other (anxiety). [facility] zolpidem 10 mg tablet 6-30 00:00: 00 03-11 00:00 :00 No [id number] 10mg Take 1 tablet by mouth at bedtime as needed for Insomnia. [facility] zolpidem 10 mg tablet 514 00:00: 00 12-15 00:00 :00 No [id number] 10mg Take 1 tablet by mouth at bedtime as needed for Insomnia. [facility] zolpidem 10 mg tablet 09-11 00:00: 00 10-29 00:00 :00 No [id number] 10mg Take 1 tablet by mouth at bedtime as needed for Insomnia. [facility] codeine-gua ifenesin 10-100 mg/5 mL oral solution 3-06 00:00: 00 08-29 04:59 :00 No 10mL Take 10 mL by mouth every 6 (six) hours as needed for Cough for up to 7 days. Indication s: cough [facility] ALPRAZolam 1 mg tablet 2-26 00:00: 00 02-05 00:00 :00 No [id number] 1mg Take 1 tablet by mouth 3 (three) times daily as needed for Other (anxiety). [facility] zolpidem 10 mg tablet -29 00:00: 00 09-11 00:00 :00 No [id number] 10mg Take 1 tablet by mouth at bedtime as needed for Insomnia. [facility] zolpidem 10 mg tablet 2023-06 2-12 00:00: 00 07-16 00:00 :00 No [id number] 10mg Take 1 tablet by mouth at bedtime as needed for Insomnia. [facility] zolpidem 10 mg tablet 2023-06- 00:00: 00 Yes [id number] 10mg Take 1 tablet by mouth at bedtime as needed for Insomnia. [facility] sildenafiL 100 mg tablet 2023-06 2- 00:00: 00 03-11 00:00 :00 No [id number] TAKE 1 TABLET BY MOUTH EVERY DAY NEEDED [facility] zolpidem 10 mg tablet 2023-06 1- 00:00: 00 05-23 00:00 :00 No [id number] 10mg Take 1 tablet by mouth at bedtime as needed for Insomnia. [facility] ALPRAZolam 1 mg tablet 2023-06 0- 00:00: 00 08-13 00:00 :00 No [id number] 1mg Take 1 tablet by mouth 3 (three) times daily as needed for Other (anxiety). [facility] zolpidem 10 mg tablet 2023-06 0- 00:00: 00 04-18 00:00 :00 No [id number] 10mg Take 1 tablet by mouth at bedtime as needed for Insomnia. [facility] ALPRAZolam 1 mg tablet 3- 00:00: 00 03-19 00:00 :00 No [id number] 1mg Take 1 tablet by mouth 3 (three) times daily as needed for Other (anxiety). [facility] zolpidem 10 mg tablet 2- 00:00: 00 03-19 00:00 :00 No [id number] 10mg Take 1 tablet by mouth at bedtime as needed for Insomnia. [facility] diclofenac 75 mg EC tablet 1-03 00:00: 00 03-19 00:00 :00 No [id number] 75mg Take 1 tablet by mouth in the morning and 1 tablet in the evening. Take with meals. [facility] zolpidem 10 mg tablet 2022-06 00:00: 00 08-09 00:00 :00 No [id number] 10mg Take 1 tablet by mouth at bedtime as needed for Insomnia. [facility] lactated ringers IV infusion 1,000 mL 2022-06 19:45: 00 Yes 1000mL at 75 mL/hr, 1,000 mL, IV Infusion, CONTINUOUS , Starting on Sun05/21/23 at 1345, Until Discontinu ed, Routine, PACU [facility] FENTanyl PF (SUBLIMAZE (PF)) injection 25 mcg 2022-06 19:39: 41 Yes 25ug 25 mcg, Slow IV Push, Q5MIN PRN, 4 doses, Starting on Sun05/21/23 at 1339, Until Discontinu ed, Routine, Pain (scale 4-6), PACU [facility] HYDROmorphO ne (DILAUDID) injection 0.2 mg 2022-06 19:39: 41 Yes .2mg 0.2 mg, Slow IV Push, Q5MIN PRN, 10 doses, Starting on Sun05/21/23 at 1339, Until Discontinu ed, Routine, Pain (scale 7-10), PACU
Us e approved by (Faculty): PACU USE -ANESTHESI A SERVICE-HY DROMORPHON E INJECTIONS [facility] ondansetron (ZOFRAN (PF)) injection 4 mg 2022-06 19:39: 41 Yes 4mg 4 mg, Slow IV Push, PRN, 1 dose, Starting on Sun05/21/23 at 1339, Until Discontinu ed, Routine, Nausea and Vomiting (N/V), PACU [facility] lactated ringers IV infusion 1,000 mL 2022-06 17:30: 00 05-21 17:28 :00 No 1000mL at 42 mL/hr, 1,000 mL, IV Infusion, ONCE, 1 dose, On Sun05/21/23 at 1130, Routine, DSU Pre-op [facility] meloxicam 7.5 mg tablet 2022-06 14:42: 49 03-19 00:00 :00 No 7.5mg Take 1 tablet by mouth in the morning. [facility] traMADoL 50 mg tablet 2022-06 2-04 00:00: 00 05-29 05:59 :00 No [id number] 50mg Take 1 tablet by mouth every 6 (six) hours as needed for Pain (scale 4-6) or Pain (scale 7-10) for up to 7 days. Indication s: acute pain [facility] sildenafiL (VIAGRA) 100 mg tablet 2022-06 00:00: 00 05-19 00:00 :00 No [id number] 8TK 1 T PO QD PRN [facility] zolpidem 10 mg tablet 2022-06 00:00: 00 06-13 00:00 :00 No [id number] 10mg Take 1 tablet by mouth at bedtime as needed for Insomnia. [facility] acetaminoph en-codeine 300-30 mg tablet 2022-06 00:00: 00 05-22 05:59 :00 No [id number] 1{tbl} Take 1 tablet by mouth every 4 (four) hours as needed for Pain (scale 4-6) for up to 7 days. Indication s: acute pain [facility] acetaminoph en-codeine 300-30 mg tablet 2022-06 00:00: 00 04-26 05:59 :00 No [id number] 1{tbl} Take 1 tablet by mouth every 4 (four) hours as needed for Pain (scale 7-10) for up to 7 days. Indication s: acute pain [facility] HYDROcodone -acetaminop hen (NORCO) 10-325 mg tablet 2022-06 0-25 00:00: 00 04-19 04:59 :00 No [id number] 1{tbl} Take 1 tablet by mouth every 6 (six) hours as needed for Pain (scale 4-6) for up to 7 days. Indication s: acute pain [facility] HYDROcodone -acetaminop hen (NORCO 5) 5-325 mg tablet 1 tablet 2022-06 0-09 16:00: 00 03-26 17:01 :00 No 1{tbl} 1 tablet, Oral, ONCE, 1 dose, On Sun03/26/23 at 1100, Routine, PACU [facility] lactated ringers IV infusion 1,000 mL 2022-06 16:00: 00 03-26 22:05 :49 No 1000mL at 100 mL/hr, 1,000 mL, IV Infusion, CONTINUOUS , Starting on Sun03/26/23 at 1100, Until Sun03/26/23 at 1705, Routine, PACU [facility] HYDROmorphO ne (DILAUDID) injection 0.2 mg 2022-06 15:48: 03 03-26 22:05 :49 No .2mg 0.2 mg, Slow IV Push, Q5MIN PRN, 10 doses, Starting on Sun03/26/23 at 1048, Until Sun03/26/23 at 1705, Routine, Pain (scale 7-10), PACU
Us e approved by (Faculty): PACU USE -ANESTHESI A SERVICE-HY DROMORPHON E INJECTIONS [facility] FENTanyl PF (SUBLIMAZE (PF)) injection 25 mcg 2022-06 15:48: 03 03-26 22:05 :49 No 25ug 25 mcg, Slow IV Push, Q5MIN PRN, 4 doses, Starting on Sun03/26/23 at 1048, Until Sun03/26/23 at 1705, Routine, Pain (scale 4-6), PACU [facility] ondansetron (ZOFRAN (PF)) injection 4 mg 2022-06 15:48: 03 03-26 22:05 :49 No 4mg 4 mg, Slow IV Push, PRN, 1 dose, Starting on Sun03/26/23 at 1048, Until Sun03/26/23 at 1705, Routine, Nausea and Vomiting (N/V), PACU [facility] bupivacaine (preserv free) (SENSORCAIN E MPF) 0.25 % (2.5 mg/mL) injection 2022-06 15:25: 00 03-26 22:05 :49 No PRN, Starting on Sun03/26/23 at 1025, Until Sun03/26/23 at 1705, Routine, Intra-op [facility] sodium chloride 0.9 % irrigation solution 2022-06 14:39: 00 03-26 22:05 :49 No PRN, Starting on Sun03/26/23 at 0939, Until Sun03/26/23 at 1705, Intra-op [facility] lactated ringers IV infusion 1,000 mL 2022-06 13:30: 00 03-26 13:41 :00 No 1000mL at 42 mL/hr, 1,000 mL, IV Infusion, ONCE, 1 dose, On Sun03/26/23 at 0830, Routine, DSU Pre-op [facility] aspirin 325 mg tablet 2022-06 00:00: 00 04-24 05:59 :00 No [id number] 325mg Take 1 tablet by mouth in the morning and 1 tablet in the evening. Take with meals. Do all this for 28 days. [facility] HYDROcodone -acetaminop hen 5-325 mg tablet 2022-06 00:00: 00 04-03 04:59 :00 No [id number] 1{tbl} Take 1 tablet by mouth every 6 (six) hours as needed for Pain (scale 4-6) or Pain (scale 7-10) for up to 7 days. Indication s: acute pain [facility] ALPRAZolam 1 mg tablet 2022-06 0 00:00: 00 Yes [id number] 1mg Take 1 tablet by mouth 3 (three) times daily as needed for Other (anxiety). [facility] zolpidem 10 mg tablet 2022-06 0 00:00: 00 05-14 00:00 :00 No [id number] 10mg Take 1 tablet by mouth at bedtime as needed for Insomnia. [facility] ZOLPIDEM 12.5 mg CR tablet 01-01 00:00: 00 03-26 00:00 :00 No [id number] 12.5mg TAKE 1 TABLET BY MOUTH AT BEDTIME NEEDED FOR SLEEP [facility] codeine-gua ifenesin 10-100 mg/5 mL oral solution 6-14 00:00: 00 03-26 00:00 :00 No 10mL Take 10 mL by mouth every 6 (six) hours as needed for Cough. Indication s: cough [facility] codeine-gua ifenesin 10-100 mg/5 mL oral solution 6-05 00:00: 00 11-28 04:59 :00 No 10mL Take 10 mL by mouth every 6 (six) hours as needed for Cough for up to 7 days. Indication s: cough [facility] cefUROXime 500 mg tablet 11-16 00:00: 00 03-19 00:00 :00 No [id number] 500mg Take 1 tablet by mouth in the morning and 1 tablet in the evening. [facility] bromphenira mine-pseudo ephedrine-D M (BROMFED DM) 2-30-10 mg/5 mL syrup 11-16 00:00: 00 03-19 00:00 :00 No [id number] 5mL Take 5 mL by mouth 4 (four) times daily as needed for Cold symptoms. [facility] ALPRAZolam 1 mg tablet 18 00:00: 00 03-19 00:00 :00 No [id number] 1mg Take 1 tablet by mouth 3 (three) times daily as needed for Other (anxiety). [facility] zolpidem 12.5 mg CR tablet 18 00:00: 00 01-01 00:00 :00 No [id number] 12.5mg Take 1 tablet by mouth at bedtime as needed for Sleep. [facility] traMADoL 50 mg tablet - 00:00: 00 03-19 00:00 :00 No TAKE 1 TABLET BY MOUTH EVERY 8 HOURS NEEDED [facility] ondansetron 4 mg tablet - 00:00: 00 03-19 00:00 :00 No TAKE 1 TABLET BY MOUTH EVERY 6 HOURS NEEDED [facility] diphenoxyla te-atropine 2.5-0.025 mg tablet 3- 00:00: 00 03-19 00:00 :00 No TAKE 2 TABLETS BY MOUTH EVERY 6 HOURS NEEDED [facility] zolpidem 10 mg tablet 3-20 00:00: 00 03-19 00:00 :00 No [id number] 10mg Take 1 tablet by mouth at bedtime as needed for Insomnia. [facility] HYDROcodone -acetaminop hen 10-325 mg tablet 3- 00:00: 00 03-19 00:00 :00 No [id number] 1{tbl} Take 1 tablet by mouth every 6 (six) hours as needed for Pain (scale 4-6). Indication s: chronic pain [facility] sildenafiL (VIAGRA) 100 mg tablet 3- 00:00: 00 05-14 00:00 :00 No [id number] 8TK 1 T PO QD PRN [facility] ALPRAZolam 1 mg tablet 2-20 00:00: 00 10-03 00:00 :00 No [id number] 1mg Take 1 tablet by mouth 3 (three) times daily as needed for Other (anxiety). [facility] zolpidem 10 mg tablet 2-20 00:00: 00 09-04 00:00 :00 No [id number] 10mg Take 1 tablet by mouth at bedtime as needed for Insomnia. [facility] HYDROcodone -acetaminop hen 10-325 mg tablet 2-20 00:00: 00 09-01 00:00 :00 No [id number] 1{tbl} Take 1 tablet by mouth every 6 (six) hours as needed for Pain (scale 4-6). Indication s: chronic pain [facility] HYDROcodone -acetaminop hen 10-325 mg tablet 1-19 00:00: 00 08-07 00:00 :00 No [id number] 1{tbl} Take 1 tablet by mouth every 6 (six) hours as needed for Pain (scale 4-6). Indication s: chronic pain [facility] zolpidem 10 mg tablet 07-06 00:00: 00 08-07 00:00 :00 No [id number] 10mg Take 1 tablet by mouth at bedtime as needed for Insomnia. [facility] cefUROXime 500 mg tablet 06-29 00:00: 00 03-19 00:00 :00 No [id number] 500mg Take 1 tablet by mouth in the morning and 1 tablet in the evening. [facility] hydrocodone -chlorpheni ramine (TUSSIONEX PENNKINETIC ER) 10-8 mg/5 mL suspension 06-29 00:00: 00 07-07 05:59 :00 No 5mL Take 5 mL by mouth every 12 (twelve) hours as needed for Cough for up to 7 days. Indication s: cough [facility] ALPRAZolam 1 mg tablet 2021-06 00:00: 00 08-07 00:00 :00 No [id number] 1mg Take 1 tablet by mouth 3 (three) times daily as needed for Other (anxiety). [facility] HYDROcodone -acetaminop hen 10-325 mg tablet 2021-06 00:00: 00 07-06 00:00 :00 No [id number] 1{tbl} Take 1 tablet by mouth every 6 (six) hours as needed for Pain (scale 4-6). Indication s: chronic pain [facility] zolpidem 10 mg tablet 2021-06 00:00: 00 07-06 00:00 :00 No [id number] 10mg Take 1 tablet by mouth at bedtime as needed for Insomnia. [facility] bromphenira mine-pseudo ephedrine-D M (BROMFED DM) 2-30-10 mg/5 mL syrup 2021-06 00:00: 00 03-19 00:00 :00 No [id number] 5mL Take 5 mL by mouth 4 (four) times daily as needed for Congestion /Allergies . [facility] codeine-gua ifenesin (CHERATUSSI N AC) 10-100 mg/5 mL oral solution 2021-06 2-15 00:00: 00 06-08 00:00 :00 No 5mL Take 5 mL by mouth every 4 (four) hours as needed for Cough. Indication s: cough [facility] zolpidem 10 mg tablet 2021-06 00:00: 00 06-08 00:00 :00 No [id number] 10mg Take 1 tablet by mouth at bedtime as needed for Insomnia. [facility] HYDROcodone -acetaminop hen 10-325 mg tablet 2021-06 00:00: 00 06-08 00:00 :00 No [id number] 1{tbl} Take 1 tablet by mouth every 6 (six) hours as needed for Pain (scale 4-6). Indication s: chronic pain [facility] ALPRAZolam 1 mg tablet 2021-06 0- 00:00: 00 06-08 00:00 :00 No [id number] 1mg Take 1 tablet by mouth 3 (three) times daily as needed for Other (anxiety). [facility] zolpidem 10 mg tablet 2021-06 0- 00:00: 00 05-08 00:00 :00 No [id number] 10mg Take 1 tablet by mouth at bedtime as needed for Insomnia. [facility] HYDROcodone -acetaminop hen 10-325 mg tablet 2021-06 0-25 00:00: 00 05-08 00:00 :00 No [id number] 1{tbl} Take 1 tablet by mouth every 6 (six) hours as needed for Pain (scale 4-6). Indication s: chronic pain [facility] HYDROcodone -acetaminop hen 10-325 mg tablet 9- 00:00: 00 04-11 00:00 :00 No [id number] 1{tbl} Take 1 tablet by mouth every 6 (six) hours as needed for Pain (scale 4-6). Indication s: chronic pain [facility] zolpidem 10 mg tablet 9-26 00:00: 00 04-11 00:00 :00 No [id number] 10mg Take 1 tablet by mouth at bedtime as needed for Insomnia. [facility] ALPRAZolam 1 mg tablet 824 00:00: 00 04-11 00:00 :00 No [id number] 1mg Take 1 tablet by mouth 3 (three) times daily as needed for Other (anxiety). [facility] HYDROcodone -acetaminop hen 10-325 mg tablet 02-08 00:00: 00 03-07 00:00 :00 No [id number] 1{tbl} Take 1 tablet by mouth every 6 (six) hours as needed for Pain (scale 4-6). Indication s: chronic pain [facility] codeine-gua ifenesin (CHERATUSSI N AC) 10-100 mg/5 mL oral solution 01-31 00:00: 00 06-01 00:00 :00 No 5mL Take 5 mL by mouth every 4 (four) hours as needed for Cough. Indication s: cough [facility] ALPRAZolam 1 mg tablet 01-12 00:00: 00 02-08 00:00 :00 No [id number] 1mg Take 1 tablet by mouth 3 (three) times daily as needed for Other (anxiety). [facility] HYDROcodone -acetaminop hen 10-325 mg tablet 01-12 00:00: 00 02-08 00:00 :00 No [id number] 1{tbl} Take 1 tablet by mouth every 6 (six) hours as needed for Pain (scale 4-6). Indication s: chronic pain [facility] zolpidem 10 mg tablet 7-05 00:00: 00 03-07 00:00 :00 No [id number] 10mg Take 1 tablet by mouth at bedtime as needed for Insomnia. [facility] codeine-gua ifenesin (CHERATUSSI N AC) 10-100 mg/5 mL oral solution 6-22 00:00: 01-31 00:00 :00 No 5mL Take 5 mL by mouth every 4 (four) hours as needed for Cough. Indication s: cough [facility] HYDROcodone -acetaminop hen 10-325 mg tablet 3-03 00:00: 00 09-13 00:00 :00 No [id number] 1{tbl} Take 1 tablet by mouth every 6 (six) hours as needed for Pain (scale 4-6). Indication s: chronic pain [facility] ZOLPIDEM 10 mg tablet 1-11 00:00: 00 09-13 00:00 :00 No [id number] 10mg TAKE 1 TABLET BY MOUTH AT BEDTIME NEEDED FOR INSOMNIA [facility] ALPRAZolam 1 mg tablet 1- 00:00: 00 08-19 00:00 :00 No [id number] 1mg Take 1 tablet by mouth 3 (three) times daily as needed for Other (anxiety). [facility] codeine-gua ifenesin (CHERATUSSI N AC) 10-100 mg/5 mL solution 2-24 00:00: 00 08-31 00:00 :00 No 5mL Take 5 mL by mouth every 4 (four) hours as needed for Cough. Indication s: cough [facility] sildenafil (VIAGRA) 100 mg tablet - 00:00: 00 08-22 00:00 :00 No [id number] 8TK 1 T PO QD PRN [facility] sildenafil (VIAGRA) 100 mg tablet 2017-06 00:00: 00 01-29 00:00 :00 No 8TK 1 T PO QD PRN [facility] HYDROcodone -acetaminop hen 10-325 mg tablet 2017-06 00:00: 00 05-13 00:00 :00 No 1{tbl} Take 1 tablet by mouth every 6 (six) hours as needed for Pain (scale 4-6). [facility] ALPRAZolam 1 mg tablet 2017-06 0 00:00: 00 09-11 00:00 :00 No 1mg Take 1 tablet by mouth 3 (three) times daily as needed for Other (anxiety). [facility] zolpidem 12.5 mg CR tablet 2017-06 00:00: 00 08-29 00:00 :00 No 12.5mg Take 1 tablet by mouth at bedtime as needed for Sleep. [facility] Quetiapine 50 mg tablet 2017-06 00:00: 00 08-29 00:00 :00 No 50mg Take 1 tablet by mouth at bedtime. [facility] Immunizations Ordered Immunization Name Filled Immunization Name Date Status Comments Source Influenza, adjuvanted, trivalent, PF (FLUAD) 2025-03-11 00:00:00 Completed SARS-COV-2 COVID 19 MIGUEL ANGEL SUCROSE VACCINE 12+, , 0.3 ML (30 MCG), IM PFIZER (SEWELL TOP) 2024-03-19 00:00:00 Completed Influenza, adjuvanted, trivalent, PF (FLUAD) 2024-03-19 00:00:00 Completed SARS-COV-2 COVID 19 MIGUEL ANGEL SUCROSE VACCINE 12+, 0.3 ML (30 MCG), IM PFIZER (SEWELL TOP) 2024-03-19 00:00:00 Completed Influenza, adjuvanted, trivalent, PF (FLUAD) 2024-03-19 00:00:00 Completed SARS-COV-2 COVID 19 MIGUEL ANGEL SUCROSE VACCINE 12+, 0.3 ML (30 MCG), IM PFIZER (SEWELL TOP) 2023-04-11 00:00:00 Completed Influenza Virus Vaccine,quad Im,preserve Free 65+ (FLUAD) 2023-04-11 00:00:00 Completed SARS-COV-2 COVID 19 MIGUEL ANGEL SUCROSE VACCINE 12+, , 0.3 ML (30 MCG), IM PFIZER (SEWELL TOP) 2023-04-11 00:00:00 Completed Influenza Virus Vaccine,quad Im,preserve Free 65+ (FLUAD) 2023-04-11 00:00:00 Completed Pneumococcal 20 Conjugate, PCV20 (Prevnar 20) 2022-03-13 00:00:00 Completed [facility] Influenza Virus Vaccine,quad Im,preserve Free 65+ 2022-03-13 00:00:00 Completed [facility] Pneumococcal 20 Conjugate, PCV20 (Prevnar 20) 2022-03-13 00:00:00 Completed [facility] Influenza Virus Vaccine,quad Im,preserve Free 65+ 2022-03-13 00:00:00 Completed [facility] Pneumococcal 20 Conjugate, PCV20 (Prevnar 20) 2022-03-13 00:00:00 Completed [facility] Influenza Virus Vaccine,quad Im,preserve Free 65+ 2022-03-13 00:00:00 Completed [facility] Pneumococcal 20 Conjugate, PCV20 (Prevnar 20) 2022-03-13 00:00:00 Completed [facility] Influenza Virus Vaccine,quad Im,preserve Free 65+ 2022-03-13 00:00:00 Completed [facility] Pneumococcal 20 Conjugate, PCV20 (Prevnar 20) 2022-03-13 00:00:00 Completed [facility] Influenza Virus Vaccine,quad Im,preserve Free 65+ 2022-03-13 00:00:00 Completed [facility] Pneumococcal 20 Conjugate, PCV20 (Prevnar 20) 2022-03-13 00:00:00 Completed [facility] Influenza Virus Vaccine,quad Im,preserve Free 65+ 2022-03-13 00:00:00 Completed [facility] Pneumococcal 20 Conjugate, PCV20 (Prevnar 20) 2022-03-13 00:00:00 Completed [facility] Influenza Virus Vaccine,quad Im,preserve Free 65+ 2022-03-13 00:00:00 Completed [facility] Pneumococcal 20 Conjugate, PCV20 (Prevnar 20) 2022-03-13 00:00:00 Completed [facility] Influenza Virus Vaccine,quad Im,preserve Free 65+ 2022-03-13 00:00:00 Completed [facility] Pneumococcal 20 Conjugate, PCV20 (Prevnar 20) 2022-03-13 00:00:00 Completed [facility] Influenza Virus Vaccine,quad Im,preserve Free 65+ 2022-03-13 00:00:00 Completed [facility] Pneumococcal 20 Conjugate, PCV20 (Prevnar 20) 2022-03-13 00:00:00 Completed [facility] Influenza Virus Vaccine,quad Im,preserve Free 65+ 2022-03-13 00:00:00 Completed [facility] Pneumococcal 20 Conjugate, PCV20 (Prevnar 20) 2022-03-13 00:00:00 Completed [facility] Influenza Virus Vaccine,quad Im,preserve Free 65+ 2022-03-13 00:00:00 Completed [facility] Pneumococcal 20 Conjugate, PCV20 (Prevnar 20) 2022-03-13 00:00:00 Completed [facility] Influenza Virus Vaccine,quad Im,preserve Free 65+ 2022-03-13 00:00:00 Completed [facility] Pneumococcal 20 Conjugate, PCV20 (Prevnar 20) 2022-03-13 00:00:00 Completed [facility] Influenza Virus Vaccine,quad Im,preserve Free 65+ 2022-03-13 00:00:00 Completed [facility] Pneumococcal 20 Conjugate, PCV20 (Prevnar 20) 2022-03-13 00:00:00 Completed [facility] Influenza Virus Vaccine,quad Im,preserve Free 65+ 2022-03-13 00:00:00 Completed [facility] Pneumococcal 20 Conjugate, PCV20 (Prevnar 20) 2022-03-13 00:00:00 Completed [facility] Influenza Virus Vaccine,quad Im,preserve Free 65+ 2022-03-13 00:00:00 Completed [facility] Pneumococcal 20 Conjugate, PCV20 (Prevnar 20) 2022-03-13 00:00:00 Completed [facility] Influenza Virus Vaccine,quad Im,preserve Free 65+ 2022-03-13 00:00:00 Completed [facility] Pneumococcal 20 Conjugate, PCV20 (Prevnar 20) 2022-03-13 00:00:00 Completed [facility] Influenza Virus Vaccine,quad Im,preserve Free 65+ 2022-03-13 00:00:00 Completed [facility] Pneumococcal 20 Conjugate, PCV20 (Prevnar 20) 2022-03-13 00:00:00 Completed [facility] Influenza Virus Vaccine,quad Im,preserve Free 65+ 2022-03-13 00:00:00 Completed [facility] Pneumococcal 20 Conjugate, PCV20 (Prevnar 20) 2022-03-13 00:00:00 Completed [facility] Influenza Virus Vaccine,quad Im,preserve Free 65+ 2022-03-13 00:00:00 Completed [facility] Pneumococcal 20 Conjugate, PCV20 (Prevnar 20) 2022-03-13 00:00:00 Completed [facility] Influenza Virus Vaccine,quad Im,preserve Free 65+ 2022-03-13 00:00:00 Completed [facility] Pneumococcal 20 Conjugate, PCV20 (Prevnar 20) 2022-03-13 00:00:00 Completed [facility] Influenza Virus Vaccine,quad Im,preserve Free 65+ 2022-03-13 00:00:00 Completed [facility] Pneumococcal 20 Conjugate, PCV20 (Prevnar 20) 2022-03-13 00:00:00 Completed [facility] Influenza Virus Vaccine,quad Im,preserve Free 65+ 2022-03-13 00:00:00 Completed [facility] Pneumococcal 20 Conjugate, PCV20 (Prevnar 20) 2022-03-13 00:00:00 Completed [facility] Influenza Virus Vaccine,quad Im,preserve Free 65+ 2022-03-13 00:00:00 Completed [facility] Pneumococcal 20 Conjugate, PCV20 (Prevnar 20) 2022-03-13 00:00:00 Completed [facility] Influenza Virus Vaccine,quad Im,preserve Free 65+ 2022-03-13 00:00:00 Completed [facility] Pneumococcal 20 Conjugate, PCV20 (Prevnar 20) 2022-03-13 00:00:00 Completed [facility] Influenza Virus Vaccine,quad Im,preserve Free 65+ 2022-03-13 00:00:00 Completed [facility] Pneumococcal 20 Conjugate, PCV20 (Prevnar 20) 2022-03-13 00:00:00 Completed [facility] Influenza Virus Vaccine,quad Im,preserve Free 65+ 2022-03-13 00:00:00 Completed [facility] Pneumococcal 20 Conjugate, PCV20 (Prevnar 20) 2022-03-13 00:00:00 Completed Influenza Virus Vaccine,quad Im,preserve Free 65+ (FLUAD) 2022-03-13 00:00:00 Completed Pneumococcal 20 Conjugate, PCV20 (Prevnar 20) 2022-03-13 00:00:00 Completed Influenza Virus Vaccine,quad Im,preserve Free 65+ (FLUAD) 2022-03-13 00:00:00 Completed SARS-COV-2 COVID-19 PFIZER VACCINE 2021-05-30 00:00:00 Completed [facility] SARS-COV-2 COVID-19 PFIZER VACCINE 2021-05-30 00:00:00 Completed [facility] SARS-COV-2 COVID-19 PFIZER VACCINE 2021-05-30 00:00:00 Completed [facility] SARS-COV-2 COVID-19 PFIZER VACCINE 2021-05-30 00:00:00 Completed [facility] SARS-COV-2 COVID-19 PFIZER VACCINE 2021-05-30 00:00:00 Completed [facility] SARS-COV-2 COVID-19 PFIZER VACCINE 2021-05-30 00:00:00 Completed [facility] SARS-COV-2 COVID-19 PFIZER VACCINE 2021-05-30 00:00:00 Completed [facility] SARS-COV-2 COVID-19 PFIZER VACCINE 2021-05-30 00:00:00 Completed [facility] SARS-COV-2 COVID-19 PFIZER VACCINE 2021-05-30 00:00:00 Completed [facility] SARS-COV-2 COVID-19 PFIZER VACCINE 2021-05-30 00:00:00 Completed [facility] SARS-COV-2 COVID-19 PFIZER VACCINE 2021-05-30 00:00:00 Completed [facility] SARS-COV-2 COVID-19 PFIZER VACCINE 2021-05-30 00:00:00 Completed [facility] SARS-COV-2 COVID-19 PFIZER VACCINE 2021-05-30 00:00:00 Completed [facility] SARS-COV-2 COVID-19 PFIZER VACCINE 2021-05-30 00:00:00 Completed [facility] SARS-COV-2 COVID-19 PFIZER VACCINE 2021-05-30 00:00:00 Completed [facility] SARS-COV-2 COVID-19 PFIZER VACCINE 2021-05-30 00:00:00 Completed [facility] SARS-COV-2 COVID-19 PFIZER VACCINE 2021-05-30 00:00:00 Completed [facility] SARS-COV-2 COVID-19 PFIZER VACCINE 2021-05-30 00:00:00 Completed [facility] SARS-COV-2 COVID-19 PFIZER VACCINE 2021-05-30 00:00:00 Completed [facility] SARS-COV-2 COVID-19 PFIZER VACCINE 2021-05-30 00:00:00 Completed [facility] SARS-COV-2 COVID-19 PFIZER VACCINE 2021-05-30 00:00:00 Completed [facility] SARS-COV-2 COVID-19 PFIZER VACCINE 2021-05-30 00:00:00 Completed [facility] SARS-COV-2 COVID-19 PFIZER VACCINE 2021-05-30 00:00:00 Completed [facility] SARS-COV-2 COVID-19 PFIZER VACCINE 2021-05-30 00:00:00 Completed [facility] SARS-COV-2 COVID-19 PFIZER VACCINE 2021-05-30 00:00:00 Completed [facility] SARS-COV-2 COVID-19 PFIZER VACCINE 2021-05-30 00:00:00 Completed [facility] SARS-COV-2 COVID-19 PFIZER VACCINE 2021-05-30 00:00:00 Completed SARS-COV-2 COVID-19 PFIZER VACCINE 2021-05-30 00:00:00 Completed Influenza Virus Vaccine - Whole 2021-03-25 00:00:00 Completed [facility] Influenza Virus Vaccine - Whole 2021-03-25 00:00:00 Completed [facility] Influenza Virus Vaccine - Whole 2021-03-25 00:00:00 Completed [facility] Influenza Virus Vaccine - Whole 2021-03-25 00:00:00 Completed [facility] Influenza Virus Vaccine - Whole 2021-03-25 00:00:00 Completed [facility] Influenza Virus Vaccine - Whole 2021-03-25 00:00:00 Completed [facility] Influenza Virus Vaccine - Whole 2021-03-25 00:00:00 Completed [facility] Influenza Virus Vaccine - Whole 2021-03-25 00:00:00 Completed [facility] Influenza Virus Vaccine - Whole 2021-03-25 00:00:00 Completed [facility] Influenza Virus Vaccine - Whole 2021-03-25 00:00:00 Completed [facility] Influenza Virus Vaccine - Whole 2021-03-25 00:00:00 Completed [facility] Influenza Virus Vaccine - Whole 2021-03-25 00:00:00 Completed [facility] Influenza Virus Vaccine - Whole 2021-03-25 00:00:00 Completed [facility] Influenza Virus Vaccine - Whole 2021-03-25 00:00:00 Completed [facility] Influenza Virus Vaccine - Whole 2021-03-25 00:00:00 Completed [facility] Influenza Virus Vaccine - Whole 2021-03-25 00:00:00 Completed [facility] Influenza Virus Vaccine - Whole 2021-03-25 00:00:00 Completed [facility] Influenza Virus Vaccine - Whole 2021-03-25 00:00:00 Completed [facility] Influenza Virus Vaccine - Whole 2021-03-25 00:00:00 Completed [facility] Influenza Virus Vaccine - Whole 2021-03-25 00:00:00 Completed [facility] Influenza Virus Vaccine - Whole 2021-03-25 00:00:00 Completed [facility] Influenza Virus Vaccine - Whole 2021-03-25 00:00:00 Completed [facility] Influenza Virus Vaccine - Whole 2021-03-25 00:00:00 Completed [facility] Influenza Virus Vaccine - Whole 2021-03-25 00:00:00 Completed [facility] Influenza Virus Vaccine - Whole 2021-03-25 00:00:00 Completed [facility] Influenza Virus Vaccine - Whole 2021-03-25 00:00:00 Completed [facility] Influenza Virus Vaccine - Whole 2021-03-25 00:00:00 Completed Influenza Virus Vaccine - Whole 2021-03-25 00:00:00 Completed Influenza High Dose 2021-03-18 00:00:00 Completed [facility] Influenza High Dose 2021-03-18 00:00:00 Completed [facility] Influenza High Dose 2021-03-18 00:00:00 Completed [facility] Influenza High Dose 2021-03-18 00:00:00 Completed [facility] Influenza High Dose 2021-03-18 00:00:00 Completed [facility] Influenza High Dose 2021-03-18 00:00:00 Completed [facility] Influenza High Dose 2021-03-18 00:00:00 Completed [facility] Influenza High Dose 2021-03-18 00:00:00 Completed [facility] Influenza High Dose 2021-03-18 00:00:00 Completed [facility] Influenza High Dose 2021-03-18 00:00:00 Completed [facility] Influenza High Dose 2021-03-18 00:00:00 Completed [facility] Influenza High Dose 2021-03-18 00:00:00 Completed [facility] Influenza High Dose 2021-03-18 00:00:00 Completed [facility] Influenza High Dose 2021-03-18 00:00:00 Completed [facility] Influenza High Dose 2021-03-18 00:00:00 Completed [facility] Influenza High Dose 2021-03-18 00:00:00 Completed [facility] Influenza High Dose 2021-03-18 00:00:00 Completed [facility] Influenza High Dose 2021-03-18 00:00:00 Completed [facility] Influenza High Dose 2021-03-18 00:00:00 Completed [facility] Influenza High Dose 2021-03-18 00:00:00 Completed [facility] Influenza High Dose 2021-03-18 00:00:00 Completed [facility] Influenza High Dose 2021-03-18 00:00:00 Completed [facility] Influenza High Dose 2021-03-18 00:00:00 Completed [facility] Influenza High Dose 2021-03-18 00:00:00 Completed [facility] Influenza High Dose 2021-03-18 00:00:00 Completed [facility] Influenza High Dose 2021-03-18 00:00:00 Completed [facility] Influenza High Dose 2021-03-18 00:00:00 Completed [facility] Influenza High Dose 2021-03-18 00:00:00 Completed [facility] Influenza High Dose 2021-03-18 00:00:00 Completed [facility] Influenza High Dose 2021-03-18 00:00:00 Completed [facility] Influenza High Dose 2021-03-18 00:00:00 Completed [facility] Influenza High Dose 2021-03-18 00:00:00 Completed [facility] Influenza High Dose 2021-03-18 00:00:00 Completed [facility] Influenza High Dose 2021-03-18 00:00:00 Completed [facility] Influenza High Dose 2021-03-18 00:00:00 Completed [facility] Influenza High Dose 2021-03-18 00:00:00 Completed [facility] Influenza High Dose 2021-03-18 00:00:00 Completed [facility] Influenza, High-Dose, Trivalent, PF (FLUZONE) 2021-03-18 00:00:00 Completed [facility] Influenza, High-Dose, Trivalent, PF (FLUZONE) 2021-03-18 00:00:00 Completed [facility] Influenza Virus Vaccine Quad .5 mL IM 6+ MO 2020-02-06 00:00:00 Completed [facility] Influenza Virus Vaccine Quad .5 mL IM 6+ MO 2020-02-06 00:00:00 Completed [facility] Influenza Virus Vaccine Quad .5 mL IM 6+ MO 2020-02-06 00:00:00 Completed [facility] Influenza Virus Vaccine Quad .5 mL IM 6+ MO 2020-02-06 00:00:00 Completed [facility] Influenza Virus Vaccine Quad .5 mL IM 6+ MO 2020-02-06 00:00:00 Completed [facility] Influenza Virus Vaccine Quad .5 mL IM 6+ MO 2020-02-06 00:00:00 Completed [facility] Influenza Virus Vaccine Quad .5 mL IM 6+ MO 2020-02-06 00:00:00 Completed [facility] Influenza Virus Vaccine Quad .5 mL IM 6+ MO 2020-02-06 00:00:00 Completed [facility] Influenza Virus Vaccine Quad .5 mL IM 6+ MO 2020-02-06 00:00:00 Completed [facility] Influenza Virus Vaccine Quad .5 mL IM 6+ MO 2020-02-06 00:00:00 Completed [facility] Influenza Virus Vaccine Quad .5 mL IM 6+ MO 2020-02-06 00:00:00 Completed [facility] Influenza Virus Vaccine Quad .5 mL IM 6+ MO 2020-02-05 00:00:00 Completed [facility] Influenza Virus Vaccine Quad .5 mL IM 6+ MO 2020-02-05 00:00:00 Completed [facility] Influenza Virus Vaccine Quad .5 mL IM 6+ MO 2020-02-05 00:00:00 Completed [facility] Influenza Virus Vaccine Quad .5 mL IM 6+ MO 2020-02-05 00:00:00 Completed [facility] Influenza Virus Vaccine Quad .5 mL IM 6+ MO 2020-02-05 00:00:00 Completed [facility] Influenza Virus Vaccine Quad .5 mL IM 6+ MO 2020-02-05 00:00:00 Completed [facility] Influenza Virus Vaccine Quad .5 mL IM 6+ MO 2020-02-05 00:00:00 Completed [facility] Influenza Virus Vaccine Quad .5 mL IM 6+ MO 2020-02-05 00:00:00 Completed [facility] Influenza Virus Vaccine Quad .5 mL IM 6+ MO 2020-02-05 00:00:00 Completed [facility] Influenza Virus Vaccine Quad .5 mL IM 6+ MO 2020-02-05 00:00:00 Completed [facility] Influenza Virus Vaccine Quad .5 mL IM 6+ MO 2020-02-05 00:00:00 Completed [facility] Influenza Virus Vaccine Quad .5 mL IM 6+ MO 2020-02-05 00:00:00 Completed [facility] Influenza Virus Vaccine Quad .5 mL IM 6+ MO 2020-02-05 00:00:00 Completed [facility] Influenza Virus Vaccine Quad .5 mL IM 6+ MO 2020-02-05 00:00:00 Completed [facility] Influenza Virus Vaccine Quad .5 mL IM 6+ MO 2020-02-05 00:00:00 Completed [facility] Influenza Virus Vaccine Quad .5 mL IM 6+ MO 2020-02-05 00:00:00 Completed [facility] Influenza Virus Vaccine Quad .5 mL IM 6+ MO 2020-02-05 00:00:00 Completed [facility] Influenza Virus Vaccine Quad .5 mL IM 6+ MO 2020-02-05 00:00:00 Completed [facility] Influenza Virus Vaccine Quad .5 mL IM 6+ MO 2020-02-05 00:00:00 Completed [facility] Influenza Virus Vaccine Quad .5 mL IM 6+ MO 2020-02-05 00:00:00 Completed [facility] Influenza Virus Vaccine Quad .5 mL IM 6+ MO 2020-02-05 00:00:00 Completed [facility] Influenza Virus Vaccine Quad .5 mL IM 6+ MO 2020-02-05 00:00:00 Completed [facility] Influenza Virus Vaccine Quad .5 mL IM 6+ MO 2020-02-05 00:00:00 Completed [facility] Influenza Virus Vaccine Quad .5 mL IM 6+ MO 2020-02-05 00:00:00 Completed [facility] Influenza Virus Vaccine Quad .5 mL IM 6+ MO 2020-02-05 00:00:00 Completed [facility] Influenza Virus Vaccine Quad .5 mL IM 6+ MO 2020-02-05 00:00:00 Completed [facility] Influenza Virus Vaccine Quad .5 mL IM 6+ MO (FLUZONE/FLULAVAL/F LUARIX) 2020-02-05 00:00:00 Completed [facility] Influenza Virus Vaccine Quad .5 mL IM 6+ MO (FLUZONE/FLULAVAL/F LUARIX) 2020-02-05 00:00:00 Completed [facility] Influenza Virus Vaccine Quad .5 mL IM 6+ MO (FLUZONE/FLULAVAL/F LUARIX) Unknown Completed [facility] Influenza High Dose Unknown Completed [facility] Pneumococcal 20 Conjugate, PCV20 (Prevnar 20) Unknown Completed [facility] Influenza Virus Vaccine,quad Im,preserve Free 65+ (FLUAD) Unknown Completed [facility] Influenza Virus Vaccine - Whole Unknown Completed [facility] SARS-COV-2 COVID-19 PFIZER VACCINE Unknown Completed [facility] Influenza Virus Vaccine Quad .5 mL IM 6+ MO (FLUZONE/FLULAVAL/F LUARIX) Unknown Completed [facility] Influenza High Dose Unknown Completed [facility] Pneumococcal 20 Conjugate, PCV20 (Prevnar 20) Unknown Completed [facility] Influenza Virus Vaccine,quad Im,preserve Free 65+ (FLUAD) Unknown Completed [facility] Influenza Virus Vaccine - Whole Unknown Completed [facility] SARS-COV-2 COVID-19 PFIZER VACCINE Unknown Completed [facility] Influenza Virus Vaccine Quad .5 mL IM 6+ MO (FLUZONE/FLULAVAL/F LUARIX) Unknown Completed [facility] Influenza High Dose Unknown Completed [facility] Influenza Virus Vaccine - Whole Unknown Completed [facility] SARS-COV-2 COVID-19 PFIZER VACCINE Unknown Completed [facility] Influenza Virus Vaccine Quad .5 mL IM 6+ MO (FLUZONE/FLULAVAL/F LUARIX) Unknown Completed [facility] Influenza High Dose Unknown Completed [facility] Pneumococcal 20 Conjugate, PCV20 (Prevnar 20) Unknown Completed [facility] Influenza Virus Vaccine,quad Im,preserve Free 65+ (FLUAD) Unknown Completed [facility] Influenza Virus Vaccine - Whole Unknown Completed [facility] SARS-COV-2 COVID-19 PFIZER VACCINE Unknown Completed [facility] Influenza Virus Vaccine Quad .5 mL IM 6+ MO (FLUZONE/FLULAVAL/F LUARIX) Unknown Completed [facility] Influenza High Dose Unknown Completed [facility] Pneumococcal 20 Conjugate, PCV20 (Prevnar 20) Unknown Completed [facility] Influenza Virus Vaccine,quad Im,preserve Free 65+ (FLUAD) Unknown Completed [facility] Influenza Virus Vaccine - Whole Unknown Completed [facility] SARS-COV-2 COVID-19 PFIZER VACCINE Unknown Completed [facility] Influenza Virus Vaccine Quad .5 mL IM 6+ MO (FLUZONE/FLULAVAL/F LUARIX) Unknown Completed [facility] Influenza High Dose Unknown Completed [facility] Pneumococcal 20 Conjugate, PCV20 (Prevnar 20) Unknown Completed [facility] Influenza Virus Vaccine,quad Im,preserve Free 65+ (FLUAD) Unknown Completed [facility] Influenza Virus Vaccine - Whole Unknown Completed [facility] SARS-COV-2 COVID-19 PFIZER VACCINE Unknown Completed [facility] Influenza Virus Vaccine Quad .5 mL IM 6+ MO (FLUZONE/FLULAVAL/F LUARIX) Unknown Completed [facility] Influenza High Dose Unknown Completed [facility] Pneumococcal 20 Conjugate, PCV20 (Prevnar 20) Unknown Completed [facility] Influenza Virus Vaccine,quad Im,preserve Free 65+ (FLUAD) Unknown Completed [facility] Influenza Virus Vaccine - Whole Unknown Completed [facility] SARS-COV-2 COVID-19 PFIZER VACCINE Unknown Completed [facility] Influenza Virus Vaccine Quad .5 mL IM 6+ MO (FLUZONE/FLULAVAL/F LUARIX) Unknown Completed [facility] Influenza High Dose Unknown Completed [facility] Pneumococcal 20 Conjugate, PCV20 (Prevnar 20) Unknown Completed [facility] Influenza Virus Vaccine,quad Im,preserve Free 65+ (FLUAD) Unknown Completed [facility] Influenza Virus Vaccine - Whole Unknown Completed [facility] SARS-COV-2 COVID-19 PFIZER VACCINE Unknown Completed [facility] Influenza Virus Vaccine Quad .5 mL IM 6+ MO (FLUZONE/FLULAVAL/F LUARIX) Unknown Completed [facility] Influenza High Dose Unknown Completed [facility] Pneumococcal 20 Conjugate, PCV20 (Prevnar 20) Unknown Completed [facility] Influenza Virus Vaccine,quad Im,preserve Free 65+ (FLUAD) Unknown Completed [facility] Influenza Virus Vaccine - Whole Unknown Completed [facility] SARS-COV-2 COVID-19 PFIZER VACCINE Unknown Completed [facility] Influenza Virus Vaccine Quad .5 mL IM 6+ MO (FLUZONE/FLULAVAL/F LUARIX) Unknown Completed [facility] Influenza High Dose Unknown Completed [facility] Pneumococcal 20 Conjugate, PCV20 (Prevnar 20) Unknown Completed [facility] Influenza Virus Vaccine,quad Im,preserve Free 65+ (FLUAD) Unknown Completed [facility] Influenza Virus Vaccine - Whole Unknown Completed [facility] SARS-COV-2 COVID-19 PFIZER VACCINE Unknown Completed [facility] Influenza Virus Vaccine Quad .5 mL IM 6+ MO (FLUZONE/FLULAVAL/F LUARIX) Unknown Completed [facility] Influenza High Dose Unknown Completed [facility] Pneumococcal 20 Conjugate, PCV20 (Prevnar 20) Unknown Completed [facility] Influenza Virus Vaccine,quad Im,preserve Free 65+ (FLUAD) Unknown Completed [facility] Influenza Virus Vaccine - Whole Unknown Completed [facility] SARS-COV-2 COVID-19 PFIZER VACCINE Unknown Completed [facility] Influenza Virus Vaccine Quad .5 mL IM 6+ MO (FLUZONE/FLULAVAL/F LUARIX) Unknown Completed [facility] Influenza High Dose Unknown Completed [facility] Pneumococcal 20 Conjugate, PCV20 (Prevnar 20) Unknown Completed [facility] Influenza Virus Vaccine,quad Im,preserve Free 65+ (FLUAD) Unknown Completed [facility] Influenza Virus Vaccine - Whole Unknown Completed [facility] SARS-COV-2 COVID-19 PFIZER VACCINE Unknown Completed [facility] Influenza Virus Vaccine Quad .5 mL IM 6+ MO (FLUZONE/FLULAVAL/F LUARIX) Unknown Completed [facility] Influenza High Dose Unknown Completed [facility] Pneumococcal 20 Conjugate, PCV20 (Prevnar 20) Unknown Completed [facility] Influenza Virus Vaccine,quad Im,preserve Free 65+ (FLUAD) Unknown Completed [facility] Influenza Virus Vaccine - Whole Unknown Completed [facility] SARS-COV-2 COVID-19 PFIZER VACCINE Unknown Completed [facility] Influenza Virus Vaccine Quad .5 mL IM 6+ MO (FLUZONE/FLULAVAL/F LUARIX) Unknown Completed [facility] Influenza High Dose Unknown Completed [facility] Pneumococcal 20 Conjugate, PCV20 (Prevnar 20) Unknown Completed [facility] Influenza Virus Vaccine,quad Im,preserve Free 65+ (FLUAD) Unknown Completed [facility] Influenza Virus Vaccine - Whole Unknown Completed [facility] SARS-COV-2 COVID-19 PFIZER VACCINE Unknown Completed [facility] Influenza Virus Vaccine Quad .5 mL IM 6+ MO (FLUZONE/FLULAVAL/F LUARIX) Unknown Completed [facility] Influenza High Dose Unknown Completed [facility] Pneumococcal 20 Conjugate, PCV20 (Prevnar 20) Unknown Completed [facility] Influenza Virus Vaccine,quad Im,preserve Free 65+ (FLUAD) Unknown Completed [facility] Influenza Virus Vaccine - Whole Unknown Completed [facility] SARS-COV-2 COVID-19 PFIZER VACCINE Unknown Completed [facility] Influenza Virus Vaccine Quad .5 mL IM 6+ MO (FLUZONE/FLULAVAL/F LUARIX) Unknown Completed [facility] Influenza High Dose Unknown Completed [facility] Pneumococcal 20 Conjugate, PCV20 (Prevnar 20) Unknown Completed [facility] Influenza Virus Vaccine,quad Im,preserve Free 65+ (FLUAD) Unknown Completed [facility] Influenza Virus Vaccine - Whole Unknown Completed [facility] SARS-COV-2 COVID-19 PFIZER VACCINE Unknown Completed [facility] Influenza Virus Vaccine Quad .5 mL IM 6+ MO (FLUZONE/FLULAVAL/F LUARIX) Unknown Completed [facility] Influenza High Dose Unknown Completed [facility] Pneumococcal 20 Conjugate, PCV20 (Prevnar 20) Unknown Completed [facility] Influenza Virus Vaccine,quad Im,preserve Free 65+ (FLUAD) Unknown Completed [facility] Influenza Virus Vaccine - Whole Unknown Completed [facility] SARS-COV-2 COVID-19 PFIZER VACCINE Unknown Completed [facility] Influenza Virus Vaccine Quad .5 mL IM 6+ MO (FLUZONE/FLULAVAL/F LUARIX) Unknown Completed [facility] Influenza High Dose Unknown Completed [facility] Pneumococcal 20 Conjugate, PCV20 (Prevnar 20) Unknown Completed [facility] Influenza Virus Vaccine,quad Im,preserve Free 65+ (FLUAD) Unknown Completed [facility] Influenza Virus Vaccine - Whole Unknown Completed [facility] SARS-COV-2 COVID-19 PFIZER VACCINE Unknown Completed [facility] SARS-COV-2 COVID 19 MIGUEL ANGEL SUCROSE VACCINE , 0.3 ML (30 MCG), IM PFIZER (SEWELL TOP) Unknown Completed [facility] Influenza Virus Vaccine Quad .5 mL IM 6+ MO (FLUZONE/FLULAVAL/F LUARIX) Unknown Completed [facility] Influenza High Dose Unknown Completed [facility] Pneumococcal 20 Conjugate, PCV20 (Prevnar 20) Unknown Completed [facility] Influenza Virus Vaccine,quad Im,preserve Free 65+ (FLUAD) Unknown Completed [facility] Influenza Virus Vaccine - Whole Unknown Completed [facility] SARS-COV-2 COVID-19 PFIZER VACCINE Unknown Completed [facility] SARS-COV-2 COVID 19 MIGUEL ANGEL SUCROSE VACCINE , 0.3 ML (30 MCG), IM PFIZER (SEWELL TOP) Unknown Completed [facility] Influenza Virus Vaccine Quad .5 mL IM 6+ MO (FLUZONE/FLULAVAL/F LUARIX) Unknown Completed [facility] Influenza High Dose Unknown Completed [facility] Pneumococcal 20 Conjugate, PCV20 (Prevnar 20) Unknown Completed [facility] Influenza Virus Vaccine,quad Im,preserve Free 65+ (FLUAD) Unknown Completed [facility] Influenza Virus Vaccine - Whole Unknown Completed [facility] SARS-COV-2 COVID-19 PFIZER VACCINE Unknown Completed [facility] SARS-COV-2 COVID 19 MIGUEL ANGEL SUCROSE VACCINE 12+, , 0.3 ML (30 MCG), IM PFIZER (SEWELL TOP) Unknown Completed [facility] Influenza Virus Vaccine Quad .5 mL IM 6+ MO (FLUZONE/FLULAVAL/F LUARIX) Unknown Completed [facility] Influenza High Dose Unknown Completed [facility] Pneumococcal 20 Conjugate, PCV20 (Prevnar 20) Unknown Completed [facility] Influenza Virus Vaccine,quad Im,preserve Free 65+ (FLUAD) Unknown Completed [facility] Influenza Virus Vaccine - Whole Unknown Completed [facility] SARS-COV-2 COVID-19 PFIZER VACCINE Unknown Completed [facility] SARS-COV-2 COVID 19 MIGUEL ANGEL SUCROSE VACCINE 12+, , 0.3 ML (30 MCG), IM PFIZER (SEWELL TOP) Unknown Completed [facility] Influenza Virus Vaccine Quad .5 mL IM 6+ MO (FLUZONE/FLULAVAL/F LUARIX) Unknown Completed [facility] Influenza High Dose Unknown Completed [facility] Pneumococcal 20 Conjugate, PCV20 (Prevnar 20) Unknown Completed [facility] Influenza Virus Vaccine,quad Im,preserve Free 65+ (FLUAD) Unknown Completed [facility] Influenza Virus Vaccine - Whole Unknown Completed [facility] SARS-COV-2 COVID-19 PFIZER VACCINE Unknown Completed [facility] SARS-COV-2 COVID 19 MIGUEL ANGEL SUCROSE VACCINE 12+, , 0.3 ML (30 MCG), IM PFIZER (SEWELL TOP) Unknown Completed [facility] Influenza Virus Vaccine Quad .5 mL IM 6+ MO (FLUZONE/FLULAVAL/F LUARIX) Unknown Completed [facility] Influenza High Dose Unknown Completed [facility] Pneumococcal 20 Conjugate, PCV20 (Prevnar 20) Unknown Completed [facility] Influenza Virus Vaccine,quad Im,preserve Free 65+ (FLUAD) Unknown Completed [facility] Influenza Virus Vaccine - Whole Unknown Completed [facility] SARS-COV-2 COVID-19 PFIZER VACCINE Unknown Completed [facility] SARS-COV-2 COVID 19 MIGUEL ANGEL SUCROSE VACCINE 12+, , 0.3 ML (30 MCG), IM PFIZER (SEWELL TOP) Unknown Completed [facility] Influenza Virus Vaccine Quad .5 mL IM 6+ MO (FLUZONE/FLULAVAL/F LUARIX) Unknown Completed [facility] Influenza High Dose Unknown Completed [facility] Pneumococcal 20 Conjugate, PCV20 (Prevnar 20) Unknown Completed [facility] Influenza Virus Vaccine,quad Im,preserve Free 65+ (FLUAD) Unknown Completed [facility] Influenza Virus Vaccine - Whole Unknown Completed [facility] SARS-COV-2 COVID-19 PFIZER VACCINE Unknown Completed [facility] SARS-COV-2 COVID 19 MIGUEL ANGEL SUCROSE VACCINE , 0.3 ML (30 MCG), IM PFIZER (SEWELL TOP) Unknown Completed [facility] Influenza Virus Vaccine Quad .5 mL IM 6+ MO (FLUZONE/FLULAVAL/F LUARIX) Unknown Completed [facility] Influenza High Dose Unknown Completed [facility] Pneumococcal 20 Conjugate, PCV20 (Prevnar 20) Unknown Completed [facility] Influenza Virus Vaccine,quad Im,preserve Free 65+ (FLUAD) Unknown Completed [facility] Influenza Virus Vaccine - Whole Unknown Completed [facility] SARS-COV-2 COVID-19 PFIZER VACCINE Unknown Completed [facility] SARS-COV-2 COVID 19 MIGUEL ANGEL SUCROSE VACCINE 12, , 0.3 ML (30 MCG), IM PFIZER (SEWELL TOP) Unknown Completed [facility] Influenza Virus Vaccine Quad .5 mL IM 6+ MO (FLUZONE/FLULAVAL/F LUARIX) Unknown Completed [facility] Influenza High Dose Unknown Completed [facility] Pneumococcal 20 Conjugate, PCV20 (Prevnar 20) Unknown Completed [facility] Influenza Virus Vaccine,quad Im,preserve Free 65+ (FLUAD) Unknown Completed [facility] Influenza Virus Vaccine - Whole Unknown Completed [facility] SARS-COV-2 COVID-19 PFIZER VACCINE Unknown Completed [facility] SARS-COV-2 COVID 19 MIGUEL ANGEL SUCROSE VACCINE 12, , 0.3 ML (30 MCG), IM PFIZER (SEWELL TOP) Unknown Completed [facility] Influenza Virus Vaccine Quad .5 mL IM 6+ MO (FLUZONE/FLULAVAL/F LUARIX) Unknown Completed [facility] Influenza High Dose Unknown Completed [facility] Pneumococcal 20 Conjugate, PCV20 (Prevnar 20) Unknown Completed [facility] Influenza Virus Vaccine,quad Im,preserve Free 65+ (FLUAD) Unknown Completed [facility] Influenza Virus Vaccine - Whole Unknown Completed [facility] SARS-COV-2 COVID-19 PFIZER VACCINE Unknown Completed [facility] SARS-COV-2 COVID 19 MIGUEL ANGEL SUCROSE VACCINE , , 0.3 ML (30 MCG), IM PFIZER (SEWELL TOP) Unknown Completed [facility] Influenza Virus Vaccine Quad .5 mL IM 6+ MO (FLUZONE/FLULAVAL/F LUARIX) Unknown Completed [facility] Influenza High Dose Unknown Completed [facility] Pneumococcal 20 Conjugate, PCV20 (Prevnar 20) Unknown Completed [facility] Influenza Virus Vaccine,quad Im,preserve Free 65+ (FLUAD) Unknown Completed [facility] Influenza Virus Vaccine - Whole Unknown Completed [facility] SARS-COV-2 COVID-19 PFIZER VACCINE Unknown Completed [facility] SARS-COV-2 COVID 19 MIGUEL ANGEL SUCROSE VACCINE , , 0.3 ML (30 MCG), IM PFIZER (SEWELL TOP) Unknown Completed [facility] Influenza Virus Vaccine Quad .5 mL IM 6+ MO (FLUZONE/FLULAVAL/F LUARIX) Unknown Completed [facility] Influenza High Dose Unknown Completed [facility] Pneumococcal 20 Conjugate, PCV20 (Prevnar 20) Unknown Completed [facility] Influenza Virus Vaccine,quad Im,preserve Free 65+ (FLUAD) Unknown Completed [facility] Influenza Virus Vaccine - Whole Unknown Completed [facility] SARS-COV-2 COVID-19 PFIZER VACCINE Unknown Completed [facility] SARS-COV-2 COVID 19 MIGUEL ANGEL SUCROSE VACCINE , , 0.3 ML (30 MCG), IM PFIZER (SEWELL TOP) Unknown Completed [facility] Influenza Virus Vaccine Quad .5 mL IM 6+ MO (FLUZONE/FLULAVAL/F LUARIX) Unknown Completed [facility] Influenza High Dose Unknown Completed [facility] Pneumococcal 20 Conjugate, PCV20 (Prevnar 20) Unknown Completed [facility] Influenza Virus Vaccine,quad Im,preserve Free 65+ (FLUAD) Unknown Completed [facility] Influenza Virus Vaccine - Whole Unknown Completed [facility] SARS-COV-2 COVID-19 PFIZER VACCINE Unknown Completed [facility] SARS-COV-2 COVID 19 MIGUEL ANGEL SUCROSE VACCINE , , 0.3 ML (30 MCG), IM PFIZER (SEWELL TOP) Unknown Completed [facility] Influenza Virus Vaccine Quad .5 mL IM 6+ MO (FLUZONE/FLULAVAL/F LUARIX) Unknown Completed [facility] Influenza High Dose Unknown Completed [facility] Pneumococcal 20 Conjugate, PCV20 (Prevnar 20) Unknown Completed [facility] Influenza Virus Vaccine,quad Im,preserve Free 65+ (FLUAD) Unknown Completed [facility] Influenza Virus Vaccine - Whole Unknown Completed [facility] SARS-COV-2 COVID-19 PFIZER VACCINE Unknown Completed [facility] SARS-COV-2 COVID 19 MIGUEL ANGEL SUCROSE VACCINE , , 0.3 ML (30 MCG), IM PFIZER (SEWELL TOP) Unknown Completed [facility] Influenza Virus Vaccine Quad .5 mL IM 6+ MO (FLUZONE/FLULAVAL/F LUARIX) Unknown Completed [facility] Influenza High Dose Unknown Completed [facility] Pneumococcal 20 Conjugate, PCV20 (Prevnar 20) Unknown Completed [facility] Influenza Virus Vaccine,quad Im,preserve Free 65+ (FLUAD) Unknown Completed [facility] Influenza Virus Vaccine - Whole Unknown Completed [facility] SARS-COV-2 COVID-19 PFIZER VACCINE Unknown Completed [facility] SARS-COV-2 COVID 19 MIGUEL ANGEL SUCROSE VACCINE 12, , 0.3 ML (30 MCG), IM PFIZER (SEWELL TOP) Unknown Completed [facility] Influenza Virus Vaccine Quad .5 mL IM 6+ MO (FLUZONE/FLULAVAL/F LUARIX) Unknown Completed [facility] Influenza High Dose Unknown Completed [facility] Pneumococcal 20 Conjugate, PCV20 (Prevnar 20) Unknown Completed [facility] Influenza Virus Vaccine - Whole Unknown Completed [facility] SARS-COV-2 COVID-19 PFIZER VACCINE Unknown Completed [facility] SARS-COV-2 COVID 19 MIGUEL ANGEL SUCROSE VACCINE 12+, , 0.3 ML (30 MCG), IM PFIZER (SEWELL TOP) Unknown Completed [facility] Influenza Virus Vaccine,quad Im,preserve Free 65+ (FLUAD) Unknown Completed [facility] Influenza Virus Vaccine Quad .5 mL IM 6+ MO (FLUZONE/FLULAVAL/F LUARIX) Unknown Completed [facility] Influenza High Dose Unknown Completed [facility] Pneumococcal 20 Conjugate, PCV20 (Prevnar 20) Unknown Completed [facility] Influenza Virus Vaccine,quad Im,preserve Free 65+ (FLUAD) Unknown Completed [facility] Influenza Virus Vaccine - Whole Unknown Completed [facility] SARS-COV-2 COVID-19 PFIZER VACCINE Unknown Completed [facility] SARS-COV-2 COVID 19 MIGUEL ANGEL SUCROSE VACCINE 12+, , 0.3 ML (30 MCG), IM PFIZER (SEWELL TOP) Unknown Completed [facility] Influenza Virus Vaccine Quad .5 mL IM 6+ MO (FLUZONE/FLULAVAL/F LUARIX) Unknown Completed [facility] Influenza High Dose Unknown Completed [facility] Pneumococcal 20 Conjugate, PCV20 (Prevnar 20) Unknown Completed [facility] Influenza Virus Vaccine,quad Im,preserve Free 65+ (FLUAD) Unknown Completed [facility] Influenza Virus Vaccine - Whole Unknown Completed [facility] SARS-COV-2 COVID-19 PFIZER VACCINE Unknown Completed [facility] SARS-COV-2 COVID 19 MIGUEL ANGEL SUCROSE VACCINE 12+, , 0.3 ML (30 MCG), IM PFIZER (SEWELL TOP) Unknown Completed [facility] Influenza Virus Vaccine Quad .5 mL IM 6+ MO (FLUZONE/FLULAVAL/F LUARIX) Unknown Completed [facility] Influenza High Dose Unknown Completed [facility] Pneumococcal 20 Conjugate, PCV20 (Prevnar 20) Unknown Completed [facility] Influenza Virus Vaccine,quad Im,preserve Free 65+ (FLUAD) Unknown Completed [facility] Influenza Virus Vaccine - Whole Unknown Completed [facility] SARS-COV-2 COVID-19 PFIZER VACCINE Unknown Completed [facility] SARS-COV-2 COVID 19 MIGUEL ANGEL SUCROSE VACCINE 12+, , 0.3 ML (30 MCG), IM PFIZER (SEWELL TOP) Unknown Completed [facility] Influenza Virus Vaccine Quad .5 mL IM 6+ MO (FLUZONE/FLULAVAL/F LUARIX) Unknown Completed [facility] Influenza High Dose Unknown Completed [facility] Pneumococcal 20 Conjugate, PCV20 (Prevnar 20) Unknown Completed [facility] Influenza Virus Vaccine,quad Im,preserve Free 65+ (FLUAD) Unknown Completed [facility] Influenza Virus Vaccine - Whole Unknown Completed [facility] SARS-COV-2 COVID-19 PFIZER VACCINE Unknown Completed [facility] SARS-COV-2 COVID 19 MIGUEL ANGEL SUCROSE VACCINE , , 0.3 ML (30 MCG), IM PFIZER (SEWELL TOP) Unknown Completed [facility] Influenza Virus Vaccine Quad .5 mL IM 6+ MO (FLUZONE/FLULAVAL/F LUARIX) Unknown Completed [facility] Influenza High Dose Unknown Completed [facility] Pneumococcal 20 Conjugate, PCV20 (Prevnar 20) Unknown Completed [facility] Influenza Virus Vaccine,quad Im,preserve Free 65+ (FLUAD) Unknown Completed [facility] Influenza Virus Vaccine - Whole Unknown Completed [facility] SARS-COV-2 COVID-19 PFIZER VACCINE Unknown Completed [facility] Influenza Virus Vaccine Quad .5 mL IM 6+ MO (FLUZONE/FLULAVAL/F LUARIX) Unknown Completed [facility] Influenza High Dose Unknown Completed [facility] Pneumococcal 20 Conjugate, PCV20 (Prevnar 20) Unknown Completed [facility] Influenza Virus Vaccine,quad Im,preserve Free 65+ (FLUAD) Unknown Completed [facility] Influenza Virus Vaccine - Whole Unknown Completed [facility] SARS-COV-2 COVID-19 PFIZER VACCINE Unknown Completed [facility] SARS-COV-2 COVID 19 MIGUEL ANGEL SUCROSE VACCINE 12+, , 0.3 ML (30 MCG), IM PFIZER (SEWELL TOP) Unknown Completed [facility] Influenza Virus Vaccine Quad .5 mL IM 6+ MO (FLUZONE/FLULAVAL/F LUARIX) Unknown Completed [facility] Influenza High Dose Unknown Completed [facility] Pneumococcal 20 Conjugate, PCV20 (Prevnar 20) Unknown Completed [facility] Influenza Virus Vaccine,quad Im,preserve Free 65+ (FLUAD) Unknown Completed [facility] Influenza Virus Vaccine - Whole Unknown Completed [facility] SARS-COV-2 COVID-19 PFIZER VACCINE Unknown Completed [facility] SARS-COV-2 COVID 19 MIGUEL ANGEL SUCROSE VACCINE , , 0.3 ML (30 MCG), IM PFIZER (SEWELL TOP) Unknown Completed [facility] Influenza Virus Vaccine Quad .5 mL IM 6+ MO (FLUZONE/FLULAVAL/F LUARIX) Unknown Completed [facility] Influenza High Dose Unknown Completed [facility] Pneumococcal 20 Conjugate, PCV20 (Prevnar 20) Unknown Completed [facility] Influenza Virus Vaccine,quad Im,preserve Free 65+ (FLUAD) Unknown Completed [facility] Influenza Virus Vaccine - Whole Unknown Completed [facility] SARS-COV-2 COVID-19 PFIZER VACCINE Unknown Completed [facility] SARS-COV-2 COVID 19 MIGUEL ANGEL SUCROSE VACCINE , , 0.3 ML (30 MCG), IM PFIZER (SEWELL TOP) Unknown Completed [facility] Influenza Virus Vaccine Quad .5 mL IM 6+ MO (FLUZONE/FLULAVAL/F LUARIX) Unknown Completed [facility] Influenza High Dose Unknown Completed [facility] Pneumococcal 20 Conjugate, PCV20 (Prevnar 20) Unknown Completed [facility] Influenza Virus Vaccine,quad Im,preserve Free 65+ (FLUAD) Unknown Completed [facility] Influenza Virus Vaccine - Whole Unknown Completed [facility] SARS-COV-2 COVID-19 PFIZER VACCINE Unknown Completed [facility] SARS-COV-2 COVID 19 MIGUEL ANGEL SUCROSE VACCINE , , 0.3 ML (30 MCG), IM PFIZER (SEWELL TOP) Unknown Completed [facility] Influenza Virus Vaccine Quad .5 mL IM 6+ MO (FLUZONE/FLULAVAL/F LUARIX) Unknown Completed [facility] Influenza High Dose Unknown Completed [facility] Pneumococcal 20 Conjugate, PCV20 (Prevnar 20) Unknown Completed [facility] Influenza Virus Vaccine,quad Im,preserve Free 65+ (FLUAD) Unknown Completed [facility] Influenza Virus Vaccine - Whole Unknown Completed [facility] SARS-COV-2 COVID-19 PFIZER VACCINE Unknown Completed [facility] SARS-COV-2 COVID 19 MIGUEL ANGEL SUCROSE VACCINE 12+, , 0.3 ML (30 MCG), IM PFIZER (SEWELL TOP) Unknown Completed [facility] Influenza Virus Vaccine Quad .5 mL IM 6+ MO (FLUZONE/FLULAVAL/F LUARIX) Unknown Completed [facility] Influenza High Dose Unknown Completed [facility] Pneumococcal 20 Conjugate, PCV20 (Prevnar 20) Unknown Completed [facility] Influenza Virus Vaccine,quad Im,preserve Free 65+ (FLUAD) Unknown Completed [facility] Influenza Virus Vaccine - Whole Unknown Completed [facility] SARS-COV-2 COVID-19 PFIZER VACCINE Unknown Completed [facility] SARS-COV-2 COVID 19 MIGUEL ANGEL SUCROSE VACCINE , , 0.3 ML (30 MCG), IM PFIZER (SEWELL TOP) Unknown Completed [facility] Influenza Virus Vaccine Quad .5 mL IM 6+ MO (FLUZONE/FLULAVAL/F LUARIX) Unknown Completed [facility] Influenza High Dose Unknown Completed [facility] Pneumococcal 20 Conjugate, PCV20 (Prevnar 20) Unknown Completed [facility] Influenza Virus Vaccine,quad Im,preserve Free 65+ (FLUAD) Unknown Completed [facility] Influenza Virus Vaccine - Whole Unknown Completed [facility] SARS-COV-2 COVID-19 PFIZER VACCINE Unknown Completed [facility] SARS-COV-2 COVID 19 MIGUEL ANGEL SUCROSE VACCINE 12+, , 0.3 ML (30 MCG), IM PFIZER (SEWELL TOP) Unknown Completed [facility] Influenza Virus Vaccine Quad .5 mL IM 6+ MO (FLUZONE/FLULAVAL/F LUARIX) Unknown Completed [facility] Influenza High Dose Unknown Completed [facility] Pneumococcal 20 Conjugate, PCV20 (Prevnar 20) Unknown Completed [facility] Influenza Virus Vaccine,quad Im,preserve Free 65+ (FLUAD) Unknown Completed [facility] Influenza Virus Vaccine - Whole Unknown Completed [facility] SARS-COV-2 COVID-19 PFIZER VACCINE Unknown Completed [facility] SARS-COV-2 COVID 19 MIGUEL ANGEL SUCROSE VACCINE 12+, [id number], 0.3 ML (30 MCG), IM PFIZER (SEWELL TOP) Unknown Completed [facility] Influenza Virus Vaccine Quad .5 mL IM 6+ MO (FLUZONE/FLULAVAL/F LUARIX) Unknown Completed [facility] Influenza, High-Dose, Trivalent, PF (FLUZONE) Unknown Completed [facility] Pneumococcal 20 Conjugate, PCV20 (Prevnar 20) Unknown Completed [facility] Influenza Virus Vaccine,quad Im,preserve Free 65+ (FLUAD) Unknown Completed [facility] Influenza Virus Vaccine - Whole Unknown Completed [facility] SARS-COV-2 COVID-19 PFIZER VACCINE Unknown Completed [facility] SARS-COV-2 COVID 19 MIGUEL ANGEL SUCROSE VACCINE 12+, , 0.3 ML (30 MCG), IM PFIZER (SEWELL TOP) Unknown Completed [facility] Vital Signs Vital Name Observation Time Observation Value Comments S ource Systolic blood pressure 2025-03-11 12:44:00 122 mm[Hg] [facility] Diastolic blood pressure 2025-03-11 12:44:00 80 mm[Hg] [facility] Heart rate 2025-03-11 12:44:00 62 /min [facility] Body height 2025-03-11 12:44:00 172.7 cm [facility] Body weight 2025-03-11 12:44:00 115.304 kg [facility] BMI 2025-03-11 12:44:00 38.65 kg/m2 [facility] Oxygen saturation in Arterial blood by Pulse oximetry 2025-03-11 12:44:00 98 /min [facility] Systolic blood pressure 2024-08-21 19:15:00 135 mm[Hg] [facility] Diastolic blood pressure 2024-08-21 19:15:00 78 mm[Hg] [facility] Heart rate 2024-08-21 19:15:00 71 /min [facility] Body temperature 2024-08-21 19:15:00 36.67 Patience [facility] Body height 2024-08-21 19:15:00 172.7 cm [facility] Body weight 2024-08-21 19:15:00 111.585 kg [facility] BMI 2024-08-21 19:15:00 37.40 kg/m2 [facility] Systolic blood pressure 2024-03-19 17:32:00 121 mm[Hg] [facility] Diastolic blood pressure 2024-03-19 17:32:00 83 mm[Hg] [facility] Heart rate 2024-03-19 17:32:00 77 /min [facility] Body height 2024-03-19 17:32:00 172.7 cm [facility] Body weight 2024-03-19 17:32:00 107.956 kg [facility] BMI 2024-03-19 17:32:00 36.19 kg/m2 [facility] Oxygen saturation in Arterial blood by Pulse oximetry 2024-03-19 17:32:00 98 /min [facility] Body weight 2023-06-04 20:27:00 119.296 kg [facility] BMI 2023-06-04 20:27:00 39.99 kg/m2 [facility] Systolic blood pressure 2023-05-21 20:15:00 122 mm[Hg] [facility] Diastolic blood pressure 2023-05-21 20:15:00 66 mm[Hg] [facility] Heart rate 2023-05-21 20:15:00 55 /min [facility] Respiratory rate 2023-05-21 20:15:00 13 /min [facility] Oxygen saturation in Arterial blood by Pulse oximetry 2023-05-21 20:15:00 96 /min [facility] Body temperature 2023-05-21 19:45:00 36.17 Patience [facility] Systolic blood pressure 2023-05-21 20:15:00 122 mm[Hg] [facility] Diastolic blood pressure 2023-05-21 20:15:00 66 mm[Hg] [facility] Heart rate 2023-05-21 20:15:00 55 /min [facility] Respiratory rate 2023-05-21 20:15:00 13 /min [facility] Oxygen saturation in Arterial blood by Pulse oximetry 2023-05-21 20:15:00 96 /min [facility] Body temperature 2023-05-21 19:45:00 36.17 Patience [facility] Systolic blood pressure 2023-05-16 19:28:00 136 mm[Hg] [facility] Diastolic blood pressure 2023-05-16 19:28:00 80 mm[Hg] [facility] Heart rate 2023-05-16 19:28:00 79 /min [facility] Body height 2023-05-16 19:28:00 172.7 cm [facility] Body weight 2023-05-16 19:28:00 119.976 kg [facility] BMI 2023-05-16 19:28:00 40.22 kg/m2 [facility] Oxygen saturation in Arterial blood by Pulse oximetry 2023-05-16 19:28:00 98 /min [facility] Systolic blood pressure 2023-04-11 18:37:00 140 mm[Hg] [facility] Diastolic blood pressure 2023-04-11 18:37:00 78 mm[Hg] [facility] Heart rate 2023-04-11 18:37:00 99 /min [facility] Body height 2023-04-11 18:37:00 172.7 cm [facility] Body weight 2023-04-11 18:37:00 120.702 kg [facility] BMI 2023-04-11 18:37:00 40.46 kg/m2 [facility] Respiratory rate 2023-03-26 17:34:00 15 /min [facility] Systolic blood pressure 2023-03-26 17:31:00 144 mm[Hg] [facility] Diastolic blood pressure 2023-03-26 17:31:00 72 mm[Hg] [facility] Heart rate 2023-03-26 17:31:00 77 /min [facility] Oxygen saturation in Arterial blood by Pulse oximetry 2023-03-26 17:31:00 97 /min [facility] Body temperature 2023-03-26 15:46:00 36.72 Patience [facility] Systolic blood pressure 2023-03-26 13:32:00 151 mm[Hg] [facility] Diastolic blood pressure 2023-03-26 13:32:00 78 mm[Hg] [facility] Heart rate 2023-03-26 13:32:00 74 /min [facility] Body temperature 2023-03-26 13:32:00 36.17 Patience [facility] Respiratory rate 2023-03-26 13:32:00 16 /min [facility] Oxygen saturation in Arterial blood by Pulse oximetry 2023-03-26 13:32:00 97 /min [facility] Systolic blood pressure 2023-03-21 19:37:00 122 mm[Hg] [facility] Diastolic blood pressure 2023-03-21 19:37:00 80 mm[Hg] [facility] Heart rate 2023-03-21 19:36:00 91 /[facility] Body height 2023-03-21 19:36:00 172.7 cm [facility] Body weight 2023-03-21 19:36:00 119.296 kg [facility] BMI 2023-03-21 19:36:00 39.99 kg/m2 [facility] Oxygen saturation in Arterial blood by Pulse oximetry 2023-03-21 19:36:00 98 /min [facility] Systolic blood pressure 2023-03-19 19:10:00 149 mm[Hg] [facility] Diastolic blood pressure 2023-03-19 19:10:00 85 mm[Hg] [facility] Heart rate 2023-03-19 19:09:00 85 /min [facility] Respiratory rate 2023-03-19 19:09:00 18 /min [facility] Body height 2023-03-19 19:09:00 172.7 cm [facility] Body weight 2023-03-19 19:09:00 120.566 kg [facility] BMI 2023-03-19 19:09:00 40.41 kg/m2 [facility] Oxygen saturation in Arterial blood by Pulse oximetry 2023-03-19 19:09:00 98 /min [facility] Systolic blood pressure 2022-11-16 15:57:00 135 mm[Hg] [facility] Diastolic blood pressure 2022-11-16 15:57:00 78 mm[Hg] [facility] Heart rate 2022-11-16 15:52:00 86 /min [facility] Body temperature 2022-11-16 15:52:00 36.67 Patience [facility] Body height 2022-11-16 15:52:00 172.7 cm [facility] Body weight 2022-11-16 15:52:00 126.327 kg [facility] BMI 2022-11-16 15:52:00 42.35 kg/m2 [facility] Oxygen saturation in Arterial blood by Pulse oximetry 2022-11-16 15:52:00 97 /min [facility] Systolic blood pressure 2022-10-03 13:40:00 131 mm[Hg] [facility] Diastolic blood pressure 2022-10-03 13:40:00 84 mm[Hg] [facility] Heart rate 2022-10-03 13:40:00 63 /min [facility] Body temperature 2022-10-03 13:40:00 36.78 Patience [facility] Body height 2022-10-03 13:40:00 172.7 cm [facility] Body weight 2022-10-03 13:40:00 123.787 kg [facility] BMI 2022-10-03 13:40:00 41.49 kg/m2 [facility] Oxygen saturation in Arterial blood by Pulse oximetry 2022-10-03 13:40:00 98 /min [facility] Systolic blood pressure 2022-08-07 14:09:00 131 mm[Hg] [facility] Diastolic blood pressure 2022-08-07 14:09:00 83 mm[Hg] [facility] Heart rate 2022-08-07 14:09:00 57 /min [facility] Body temperature 2022-08-07 14:09:00 36.5 Patience [facility] Body height 2022-08-07 14:09:00 170.2 cm [facility] Body weight 2022-08-07 14:09:00 125.646 kg [facility] BMI 2022-08-07 14:09:00 43.38 kg/m2 [facility] Oxygen saturation in Arterial blood by Pulse oximetry 2022-08-07 14:09:00 98 /min [facility] Systolic blood pressure 2022-06-29 15:16:00 135 mm[Hg] [facility] Diastolic blood pressure 2022-06-29 15:16:00 86 mm[Hg] [facility] Heart rate 2022-06-29 15:16:00 80 /min [facility] Body temperature 2022-06-29 15:16:00 36.83 Patience [facility] Body height 2022-06-29 15:16:00 172.7 cm [facility] Body weight 2022-06-29 15:16:00 125.646 kg [facility] BMI 2022-06-29 15:16:00 42.12 kg/m2 [facility] Oxygen saturation in Arterial blood by Pulse oximetry 2022-06-29 15:16:00 99 /min [facility] Systolic blood pressure 2022-06-08 14:15:00 135 mm[Hg] [facility] Diastolic blood pressure 2022-06-08 14:15:00 83 mm[Hg] [facility] Heart rate 2022-06-08 14:09:00 73 /min [facility] Body height 2022-06-08 14:09:00 172.7 cm [facility] Body weight 2022-06-08 14:09:00 125.964 kg [facility] BMI 2022-06-08 14:09:00 42.22 kg/m2 [facility] Oxygen saturation in Arterial blood by Pulse oximetry 2022-06-08 14:09:00 97 /min [facility] Systolic blood pressure 2022-04-11 13:22:00 127 mm[Hg] [facility] Diastolic blood pressure 2022-04-11 13:22:00 85 mm[Hg] [facility] Heart rate 2022-04-11 13:22:00 71 /min [facility] Body height 2022-04-11 13:22:00 172.7 cm [facility] Body weight 2022-04-11 13:22:00 124.603 kg [facility] BMI 2022-04-11 13:22:00 41.77 kg/m2 [facility] Oxygen saturation in Arterial blood by Pulse oximetry 2022-04-11 13:22:00 98 /min [facility] Systolic blood pressure 2022-01-31 12:57:00 136 mm[Hg] [facility] Diastolic blood pressure 2022-01-31 12:57:00 85 mm[Hg] [facility] Heart rate 2022-01-31 12:57:00 81 /min [facility] Body temperature 2022-01-31 12:57:00 36.94 Patience [facility] Body weight 2022-01-31 12:57:00 123.832 kg [facility] BMI 2022-01-31 12:57:00 42.76 kg/m2 [facility] Procedures Procedure Date / Time Performed Performing Clinician Source FLU VACC([id number]),65+YR,0.5 ML,IM,ADJUVANTED,TIV(FLUA D) 2025-03-11 13:03:26 Aron Bell [facility] SARS-COV-2 COVID 19 MIGUEL ANGEL SUCROSE VACCINE 12+, [id number], 0.3 ML (30 MCG), IM PFIZER (SEWELL TOP) 2024-03-19 17:59:17 Aron Bell [facility] FLU VACC(),65+YR,0.5 ML,IM,ADJUVANTED,TIV(FLUA D) 2024-03-19 17:59:17 Aron Bell [facility] REMOVAL EXTERNAL FIXATION WRIST 2023-05-21 19:02:00 Alexys Waggoner [facility] DAY SURGERY - ADC 2023-05-21 06:01:00 Doctor Jayshree ssigned, [place] [facility] EXTERNAL PROVIDER RECORDS 2023-05-17 06:01:00 Do ctor Unassigned, [place] [facility] EXTERNAL PROVIDER RECORDS 2023-05-17 06:01:00 Do ctor Unassigned, [place] [facility] XR WRIST 3+ VW LEFT 2023-05-16 19:51:33 Barry Waggoner [facility] FLU VACC(),65+YR,0.5 ML,IM,ADJUVANTED,QUAD(FLU AD) 2023-04-11 19:40:12 Doctor Unassigned, [place] [facility] XR WRIST 3+ VW LEFT 2023-04-11 19:06:26 Barry Waggoner [facility] EXTERNAL PROVIDER RECORDS 2023-04-11 05:01:00 Do ctor Unassigned, [place] [facility] EXTERNAL PROVIDER RECORDS 2023-04-02 05:01:00 Do ctor Unassigned, [place] [facility] HOME HEALTH - OTHER 2023-03-28 05:01:00 Doctor Yunier nassicandi, [place] [facility] FL TIME OR (NON-REPORTABLE) 2023-03-26 15:20:00 Alexys Waggoner [facility] FL TIME OR (NON-REPORTABLE) 2023-03-26 15:20:00 Alexys Waggoner [facility] DISTAL RADIUS ORIF 2023-03-26 13:38:00 Alexys Waggoner [facility] DAY SURGERY - ADC 2023-03-26 05:01:00 Doctor Jayshree ssigned, [place] [facility] EXTERNAL PROVIDER RECORDS 2023-03-22 05:01:00 Do ctor Unassigned, [place] [facility] INSURANCE CORRESPONDENCE 2023-03-22 05:01:00 Doc tor Unassigned, [place] [facility] EXTERNAL PROVIDER RECORDS 2023-03-22 05:01:00 Do ctor Unassigned, [place] [facility] INSURANCE CORRESPONDENCE 2023-03-22 05:01:00 Doc tor Unassigned, [place] [facility] NOTICE OF PRIVACY PRACTICES 2023-03-21 20:44:50 Doctor Unassigned, [place] [facility] HEALTH - OTHER 2023-03-19 05:01:00 Doctor U nassigned, [place] [facility] 485 2023-03-16 05:01:00 Doctor Unass igned, [place] [facility] 485 2023-03-10 05:01:00 Doctor Unass igned, [place] [facility] EXTERNAL PROVIDER RECORDS 2022-11-21 05:01:00 Do ctor Unassigned, [place] [facility] PATIENT FINANCIAL POLICY 2022-10-03 13:29:21 Doctor Unassigned, [place] [facility] Encounters Start Date/Time End Date/Time Encounter Type Admission Type Attending [facility] Facility Care Department Encounter ID Source 2025-03-11 07:45:00 2025-03-11 08:18:15 [facility] [id number] [id number] [id number] [id number] [facility] 2025-02-18 12:00:00 2025-02-18 12:00:00 Outpatient ARON MEHTA [facility] [id number] [facility] 2025-02-05 00:00:00 2025-02-10 08:57:10 [facility] [id number] [id number] [id number] [id number] [facility] 2025-02-04 00:00:00 2025-02-04 18:10:39 Letter (Out) [facility] ([facility]) [id number] [id number] [id number] [id number] [facility] 2025-01-09 00:00:00 2025-01-12 06:17:22 Telephone Aron Bell [facility] [id number] 350.1.13.10 [id number] [id number] [facility] 2024-12-15 00:00:00 2024-12-15 13:14:01 Refill Carlos [facility] DANIEL?[facility] [id number] [id number] [id number] [id number] [facility] 2024-12-10 00:00:00 2024-12-15 06:13:45 Telephone Aron Bell [facility] [id number] 350.1.13.10 [id number] [id number] [facility] 2024-10-29 00:00:00 2024-10-29 09:36:47 Refill Carlos [facility] DANIEL?[facility] [id number] 350.1.13.10 4.2.7.2.686 [id number] [facility] 2024-10-29 00:00:00 2024-10-29 09:36:12 Refill Carlos [facility] DANIEL?[facility] [id number] 350.1.13.10 4.2.7.2.686 [id number] [facility] 2024-10-29 00:00:00 2024-10-29 09:14:31 Refill Aron Bell [facility] [id number] 350.1.13.10 4.2.7.2.686 [id number] [facility] 2021-08-16 00:00:00 2024-10-09 21:40:05 Refill Doctor Unassigned, [place] Doctor Unassigned, [place] [facility] [id number] 350.1.13.10 4.2.7.2.686 [id number] [facility] 2021-08-17 00:00:00 2024-10-09 21:40:03 Refill Doctor Unassigned, [place] Doctor Unassigned, [place] [facility] 1.0.114 350.1.13.10 4.2.7.2.686 [id number] [facility] 2024-09-11 00:00:00 2024-09-11 15:46:17 Refill Carlos Aron [facility] 1.20.114 350.1.13.10 4.2.7.2.686 [id number] [facility] 2024-08-21 14:00:00 2024-08-21 14:15:00 Office Visit JanaymistyesequielWilmer [facility] [id number] 350.1.13.10 4.2.7.2.686 [id number] [facility] 2024-08-21 14:00:00 2024-08-21 14:00:00 Outpatient Fidel MENDIETAROCÍOWILMER [facility] [id number] [facility] 2024-08-13 00:00:00 2024-08-13 12:51:19 Refill Carlos [facility] DANIEL[facility] [id number] 350.1.13.10 4.2.7.2.686 [id number] [facility] 2024-08-05 00:00:00 2024-08-06 16:38:54 Telephone Carlos Aron [facility] DANIEL?[facility] 1.2.840.114 350.1.13.10 4.2.7.2.686 [id number] 044 [id number] [facility] 2018-04-15 00:00:00 2024-08-02 03:14:00 Orders Only Hailey Knapp Dee A [facility] GÓMEZ NAL OFFICE BUILDING ONE 1..840.114 350.1.13.10 4.2.7.2.686 [id number] 044 [id number] [facility] 2022-11-07 00:00:00 2024-08-02 02:41:15 Orders Only Kirti Nur Candice M [facility] DANIEL?[facility] 1..840.114 350.1.13.10 4.2.7.2.686 [id number] 044 [id number] [facility] 2024-07-16 00:00:00 2024-07-16 15:50:23 Refdaniel Bell Aron [facility] DANIEL?[facility] 1..840.114 350.1.13.10 4.2.7.2.686 [id number] 044 [id number] [facility] 2024-05-23 00:00:00 2024-05-29 15:21:37 Refill Carlos [facility] DANIEL?[facility] 1.2.840.114 350.1.13.10 4.2.7.2.686 [id number] 044 [id number] [facility] 2024-05-23 00:00:00 2024-05-26 06:36:03 [facility] 1.2.840.114 350.1.13.10 4.2.7.2.686 [id number] 044 [id number] [facility] 2024-05-16 00:00:00 2024-05-19 06:20:08 Refill Aron Bell [facility] 1.2840.114 350.1.13.10 4.2.7.2.686 [id number] 044 [id number] [facility] 2024-04-18 00:00:00 2024-04-21 06:19:11 Refill Carlos [facility] DANIEL?[facility] 1.2840.114 350.1.13.10 4.2.7.2.686 [id number] 044 [id number] [facility] 2024-03-19 12:30:00 2024-03-19 12:58:05 Outpatient R CARLOS ARON [facility] [id number] [facility] 2024-03-19 12:30:00 2024-03-19 12:58:05 Office Visit Carlos [facility] access hospitalANITA PETER?[facility] 1.2840.114 350.1.13.10 4.2.7.2.686 [id number] 044 [id number] [facility] 2024-03-11 00:00:00 2024-03-11 10:56:26 Refill Carlos Critical access hospitalANITA PETER[facility] 1.2840.114 350.1.13.10 4.2.7.2.686 [id number] 044 [id number] [facility] 2023-11-04 00:00:00 2023-11-05 10:24:23 [facility] 1.2.840.114 350.1.13.10 4.2.7.2.686 [id number] 044 [id number] [facility] 2023-11-05 10:15:00 2023-11-05 10:15:00 Outpatient ARON MEHTA [facility] [id number] [facility] 2023-10-02 00:00:00 2023-10-02 00:00:00 Telephone Carlos [facility] 1..840.114 350.1.13.10 4.2.7.2.686 [id number] 044 [id number] [facility] 2023-09-24 07:30:00 2023-09-24 07:30:00 Outpatient R ARON BELL [facility] [id number] [facility] 2023-08-27 00:00:00 2023-08-27 00:00:00 Telephone Carlos Aron [facility] DANIEL?[facility] 1..840.114 350.1.13.10 4.2.7.2.686 [id number] 044 [id number] [facility] 2023-08-09 00:00:00 2023-08-09 00:00:00 Refill Carlos [facility] DANIEL?[facility] 1..840.114 350.1.13.10 4.2.7.2.686 [id number] 044 [id number] [facility] 2023-06-25 10:15:00 2023-06-25 10:15:00 Outpatient ALEXYS BARTLETT [facility] [id number] [facility] 2023-06-25 00:00:00 2023-06-25 00:00:00 Patient Secure Msg Doctor Unassigned, [facility] DANIEL?[facility] 1.2840.114 350.1.13.10 4.2.7.2.686 [id number] 198 [id number] [facility] 2023-06-24 00:00:00 2023-06-24 00:00:00 Telephone Alexys Waggoner [facility] 1.2840.114 350.1.13.10 4.2.7.2.686 [id number] 198 [id number] [facility] 2023-06-21 00:00:00 2023-06-21 00:00:00 Patient Secure Msg Doctor Unassigned, Cantrall [facility] ORELLANAE?[facility] 1.2840.114 350.1.13.10 4.2.7.2.686 [id number] [facility] 2023-06-13 00:00:00 2023-06-13 00:00:00 RefAron Hernandez [facility] O[facility]LL[facility]E?[facility] 1.2840.114 350.1.13.10 4.2.7.2.686 [id number] 044 [id number] [facility] 2023-06-13 00:00:00 2023-06-13 00:00:00 Patient Secure Msg Doctor Unassigned, Cantrall [facility] O[facility]LLANAE?[facility] 1.2840.114 350.1.13.10 4.2.7.2.686 [id number] [facility] 2023-06-08 00:00:00 2023-06-08 00:00:00 Telephone Alexys Waggoner [facility] 1.2840.114 350.1.13.10 4.2.7.2.686 [id number] [facility] 2023-06-08 00:00:00 2023-06-08 00:00:00 Telephone WaggonerAlexys singletary [facility] 1.2.840.114 350.1.13.10 4.2.7.2.686 [id number] 044 [id number] [facility] 2023-06-04 14:30:00 2023-06-04 14:44:01 Outpatient R ALEXYS WAGGONER [facility] [id number] [facility] 2023-06-04 14:30:00 2023-06-04 14:44:01 Office Visit Alexys Waggoner [facility] 1.2.840.114 350.1.13.10 4.2.7.2.686 [id number] [facility] 2023-05-28 00:00:00 2023-05-28 00:00:00 Patient Secure Msg Doctor Unassigned, Cantrall [facility] 1..840.114 350.1.13.10 4.2.7.2.686 [id number] 198 [id number] [facility] 2023-05-21 14:00:00 2023-05-21 15:13:00 Surgery Alexys Waggoner [facility] 1.2.840.114 350.1.13.10 4.2.7.2.686 [id number] 020 [id number] [facility] 2023-05-21 11:03:00 2023-05-21 14:25:00 Outpatient R ALEXYS WAGGONER [facility] [id number] [facility] 2023-05-21 11:03:00 2023-05-21 14:25:00 Hospital Encounter Alexys Waggoner [facility] 1.2.840.114 350.1.13.10 4.2.7.2.686 [id number] 071 [id number] [facility] 2023-05-21 00:00:00 2023-05-21 00:00:00 Orders Only Doctor Unassigned, Cantrall [facility] 1.2840.114 350.1.13.10 4.2.7.2.686 [id number] [id number] [facility] 2023-05-16 13:41:04 2023-05-16 23:59:00 Hospital Encounter Alexys Waggoner [facility] OFF[facility] BUILD[facility] 1.2.114 350.1.13.10 4.2.7.2.686 [id number] [id number] [facility] 2023-05-16 14:15:00 2023-05-16 14:35:50 Uptwist Spinner Visit Lab, Vijay - Farrukh Waggoner Alexys [facility] BUILD[facility] 1.2114 350.1.13.10 4.2.7.2.686 [id number] [facility] 2023-05-16 13:30:00 2023-05-16 14:07:16 Outpatient R ALEXYS WAGGONER [facility] [id number] [facility] 2023-05-16 13:30:00 2023-05-16 14:07:16 Office Visit Derrell [facility]ys [facility] 1.20.114 350.1.13.10 4.2.7.2.686 [id number] [facility] 2023-05-16 13:30:54 2023-05-16 13:40:00 Hospital Encounter Alexys Waggoner [facility] 1.2840.114 350.1.13.10 4.2.7.2.686 [id number] [facility] 2023-05-14 00:00:00 2023-05-14 00:00:00 Refill Aron Bell [facility] 1.840.114 350.1.13.10 4.2.7.2.686 [id number] 044 [id number] [facility] 2023-05-14 00:00:00 2023-05-14 00:00:00 Telephone Alexys Waggoner [facility] DANIEL?[facility] 1.84.114 350.1.13.10 4.2.7.2.686 [id number] 198 [id number] [facility] 2023-05-09 13:00:00 2023-05-09 13:00:00 Outpatient R ALEXYS WAGGONER [facility] [id number] [facility] 2023 00:00:00 2023 00:00:00 Refill Alexys Waggoner [facility] DANIEL?[facility] 1.840.114 350.1.13.10 4.2.7.2.686 [id number] 198 [id number] [facility] 2023-04-13 00:00:00 2023-04-13 00:00:00 Patient Secure Msg Doctor Unassigned, Cantrall [facility] DANIEL?[facility] 1.840.114 350.1.13.10 4.2.7.2.686 [id number] [facility] 2023-04-12 00:00:00 2023-04-12 00:00:00 Telephone Alexys Waggoner [facility] DANIEL?[facility] 1.840.114 350.1.13.10 4.2.7.2.686 [id number] [facility] 2023-04-11 13:35:59 2023-04-11 23:59:00 Hospital Encounter Alexys Waggoner [facility] 1.284.114 350.1.13.10 4.2.7.2.686 [id number] [facility] 2023-04-11 14:20:00 2023-04-11 14:40:00 Imm/Inj Visit Nurse, Vijay Chadwick Alexys Waggoner [facility] 1.84.114 350.1.13.10 4.2.7.2.686 [id number] 044 [id number] [facility] 2023-04-11 13:45:00 2023-04-11 14:14:02 Outpatient R ALEXYS WAGGONER ALEXYS WAGGONER [facility] [id number] [facility] 2023-04-11 13:45:00 2023-04-11 14:14:02 Office Visit Alexys Waggoner [facility] 1.840.114 350.1.13.10 4.2.7.2.686 [id number] [facility] 2023-04-11 00:00:00 2023-04-11 00:00:00 Patient Secure Msg Doctor Unassigned, Cantrall [facility] DANIEL?[facility] 1.84.114 350.1.13.10 4.2.7.2.686 [id number] [facility] 2023-04-05 00:00:00 2023-04-05 00:00:00 Telephone Alexys Waggoner [facility] 1.84.114 350.1.13.10 4.2.7.2.686 [id number] 198 [id number] [facility] 2023-04-02 00:00:00 2023-04-02 00:00:00 Orders Only Doctor Unassigned, Cantrall [facility] 1.2.840.114 350.1.13.10 4.2.7.2.686 [id number] 009 [id number] [facility] 2023-03-29 09:00:00 2023-03-29 09:00:00 Outpatient ARON MEHTA [facility] [id number] [facility] 2023-03-28 00:00:00 2023-03-28 00:00:00 Orders Only Doctor Unassigned, Cantrall [facility] 1.2.840.114 350.1.13.10 4.2.7.2.686 [id number] 009 [id number] [facility] 2023-03-26 08:24:00 2023-03-26 13:12:00 Outpatient ALEXYS BARTLETT [facility] [id number] [facility] 2023-03-26 08:24:00 2023-03-26 13:12:00 Hospital Encounter Alexys Waggoner [facility] 1.2.840.114 350.1.13.10 4.2.7.2.686 [id number] [facility] 2023-03-26 08:55:00 2023-03-26 10:40:00 Surgery Alexys Waggoner [facility] 1.2.840.114 350.1.13.10 4.2.7.2.686 [id number] [facility] 2023-03-26 00:00:00 2023-03-26 00:00:00 Orders Only Doctor Unassigned, Cantrall [facility] 1.2.840.114 350.1.13.10 4.2.7.2.686 [id number] [id number] [facility] 2023-03-21 15:30:00 2023-03-21 15:45:00 Uptwist Spinner Visit Pob, Adc Lab Main Alexys [facility] 1.2.840.114 350.1.13.10 4.2.7.2.686 [id number] [facility] 2023-03-21 15:30:00 2023-03-21 15:30:00 Outpatient R ALEXYS WAGGONER [facility] [id number] [facility] 2023-03-21 14:45:00 2023-03-21 15:05:26 Office Visit Derrell Alexys Uribe [facility] 1.2.840.114 350.1.13.10 4.2.7.2.686 [id number] 198 [id number] [facility] 2023-03-21 00:00:00 2023-03-21 00:00:00 Prep For Surgery Dayrl Mora [facility] 1.2840.114 350.1.13.10 4.2.7.2.686 [id number] 198 [id number] [facility] 2023-03-21 00:00:00 2023-03-21 00:00:00 Orders Only Doctor Unassigned, Cantrall [facility] 1.2.840.114 350.1.13.10 4.2.7.2.686 [id number] 009 [id number] [facility] 2023-03-19 14:15:00 2023-03-19 14:45:00 Office Visit Aron Bell [facility] 1.2840.114 350.1.13.10 4.2.7.2.686 [id number] 044 [id number] [facility] 2023-03-19 14:15:00 2023-03-19 14:15:00 Outpatient R ARON BELL [facility] [id number] [facility] 2023-03-19 00:00:00 2023-03-19 00:00:00 Orders Only Doctor Unassigned, Cantrall [facility] 1.840.114 350.1.13.10 4.2.7.2.686 [id number] 009 [id number] [facility] 2023-03-16 00:00:00 2023-03-16 00:00:00 Orders Only Doctor Unassigned, Cantrall [facility] 1.2840.114 350.1.13.10 4.2.7.2.686 [id number] [facility] 2023-03-14 00:00:00 2023-03-14 00:00:00 Telephone Alexys Waggoner [facility] 1..114 350.1.13.10 4.2.7.2.686 [id number] 198 [id number] [facility] 2023-03-14 00:00:00 2023-03-14 00:00:00 Telephone Aron Bell [facility] 1.840.114 350.1.13.10 4.2.7.2.686 [id number] 044 [id number] [facility] 2023-03-10 00:00:00 2023-03-10 00:00:00 Orders Only Doctor Unassigned, Cantrall [facility] 1.0.114 350.1.13.10 4.2.7.2.686 [id number] [facility] 2022-12-30 00:00:00 2022-12-30 00:00:00 Refill Carlos Critical access hospital?[facility] 1.84.114 350.1.13.10 4.2.7.2.686 [id number] 044 [id number] [facility] 2022-11-29 00:00:00 2022-11-29 00:00:00 Refill Kirti Nur [facility] 1.2840.114 350.1.13.10 4.2.7.2.686 [id number] 044 [id number] [facility] 2022-11-29 00:00:00 2022-11-29 00:00:00 [facility] 1.2840.114 350.1.13.10 4.2.7.2.686 [id number] 044 [id number] [facility] 2022-11-27 09:00:00 2022-11-27 09:00:00 Outpatient R ARON [facility]LL [facility] [id number] [facility] 2022-11-21 00:00:00 2022-11-21 00:00:00 Telephone Carlos [facility] 1.840.114 350.1.13.10 4.2.7.2.686 [id number] 044 [id number] [facility] 2022-11-21 00:00:00 2022-11-21 00:00:00 Orders Only Doctor Unassigned, Cantrall [facility] 1.2840.114 350.1.13.10 4.2.7.2.686 [id number] 009 [id number] [facility] 2022-11-17 00:00:00 2022-11-17 00:00:00 Telephone Carlos [facility] 1.2840.114 350.1.13.10 4.2.7.2.686 [id number] 044 [id number] [facility] 2022-11-16 12:15:00 2022-11-16 12:30:00 Office Visit Carlos [facility] DANIEL?[facility] 1.2840.114 350.1.13.10 4.2.7.2.686 [id number] 044 [id number] [facility] 2022-11-16 12:15:00 2022-11-16 12:15:00 Outpatient R ARON BELL [facility] [id number] [facility] 2022-11-15 00:00:00 2022-11-15 00:00:00 Telephone Aron Bell [facility] DANIEL?[facility] 1.2840.114 350.1.13.10 4.2.7.2.686 [id number] 044 [id number] [facility] 2022-10-04 00:00:00 2022-10-04 00:00:00 Telephone Aron Bell [facility] DANIEL?[facility] 1.2840.114 350.1.13.10 4.2.7.2.686 [id number] 044 [id number] [facility] 2022-10-03 08:45:00 2022-10-03 09:00:00 Office Visit Aron Bell [facility] DANIEL?[facility] 1.2840.114 350.1.13.10 4.2.7.2.686 [id number] 044 [id number] [facility] 2022-10-03 08:45:00 2022-10-03 08:45:00 Outpatient R [facility]ON [facility]LL [facility] [id number] [facility] 2022-10-03 00:00:00 2022-10-03 00:00:00 Orders Only Doctor Unassigned, Cantrall [facility] 1.2840.114 350.1.13.10 4.2.7.2.686 [id number] [facility] 2022-10-03 00:00:00 2022-10-03 00:00:00 [facility] 1.2840.114 350.1.13.10 4.2.7.2.686 [id number] 044 [id number] [facility] 2022-09-12 00:00:00 2022-09-12 00:00:00 Telephone [facility]ron Bell [facility] 1.2840.114 350.1.13.10 4.2.7.2.686 [id number] 044 [id number] [facility] 2022-09-07 00:00:00 2022-09-07 00:00:00 Telephone Aron Bell [facility] 1.2840.114 350.1.13.10 4.2.7.2.686 [id number] 044 [id number] [facility] 2022-09-06 00:00:00 2022-09-06 00:00:00 Telephone Aron Bell [facility] 1.2840.114 350.1.13.10 4.2.7.2.686 [id number] 044 [id number] [facility] 2022-09-01 00:00:00 2022-09-01 00:00:00 Telephone Aron Bell [facility] 1.2840.114 350.1.13.10 4.2.7.2.686 [id number] 044 [id number] [facility] 2022-09-01 00:00:00 2022-09-01 00:00:00 Telephone Aron Bell [facility] 1.2840.114 350.1.13.10 4.2.7.2.686 [id number] 044 [id number] [facility] 2022-08-17 00:00:00 2022-08-17 00:00:00 Refill Carlos Critical access hospitalANITA [facility]ER?[facility] 1.2840.114 350.1.13.10 4.2.7.2.686 [id number] 044 [id number] [facility] 2022-08-07 08:45:00 2022-08-07 09:00:00 Uptwist Spinner Visit Lab, Vijay - Farrukh Carlos Critical access hospitalANITA PETER?[facility] 1.840.114 350.1.13.10 4.2.7.2.686 [id number] [facility] 2022-08-07 08:45:00 2022-08-07 08:45:00 Outpatient R ARON BELL [facility] [id number] [facility] 2022-08-07 08:30:00 2022-08-07 08:45:00 [facility] 1.840.114 350.1.13.10 4.2.7.2.686 [id number] [facility] 2022-08-07 00:00:00 2022-08-07 00:00:00 Telephone [facility] Critical access hospitalANITA PETER?[facility] 1.840.114 350.1.13.10 4.2.7.2.686 [id number] [facility] 2022-07-06 00:00:00 2022-07-06 00:00:00 Refill Doctor Unassigned, [place] [facility] 1.84.114 350.1.13.10 4.2.7.2.686 [id number] [facility] 2022-07-06 00:00:00 2022-07-06 00:00:00 Refill Doctor Unassigned, [place] [facility] DANIEL?[facility] 1.84.114 350.1.13.10 4.2.7.2.686 [id number] [facility] 2022-06-29 09:30:00 2022-06-29 09:41:28 Outpatient R ARON BELL [facility] [id number] [facility] 2022-06-29 09:30:00 2022-06-29 09:41:28 Office Visit Aron Bell [facility] YOSELIN PETER?[facility] 1.2.840.114 350.1.13.10 4.2.7.2.686 [id number] [facility] 2022-06-29 00:00:00 2022-06-29 00:00:00 [facility]phone [facility] 1.840.114 350.1.13.10 4.2.7.2.686 [id number] [facility] 2022-06-08 08:30:00 2022-06-08 08:45:00 [facility] 1.84.114 350.1.13.10 4.2.7.2.686 [id number] [facility] 2022-06-08 08:30:00 2022-06-08 08:30:00 Outpatient ARON MEHTA [facility] [id number] [facility] 2022-06-02 00:00:00 2022-06-02 00:00:00 Telephone [facility] 1.840.114 350.1.13.10 4.2.7.2.686 [id number] [facility] 2022-06-01 00:00:00 2022-06-01 00:00:00 Refill Doctor Unassigned, [place] [facility] YOSELIN PETER?[facility] 1..840.114 350.1.13.10 4.2.7.2.686 [id number] [facility] 2022-05-08 00:00:00 2022-05-08 00:00:00 Refill Doctor Unassigned, [place] [facility] YOSELIN PETER?[facility] 1.0114 350.1.13.10 4.2.7.2.686 [id number] [facility] 2022-04-11 08:30:00 2022-04-11 08:45:00 Office Visit Aron Bell [facility] YOSELIN PETER?[facility] 1.114 350.1.13.10 4.2.7.2.686 [id number] [facility] 2022-04-11 08:30:00 2022-04-11 08:30:00 Outpatient R ARON BELL [facility] [id number] [facility] 2022-03-09 07:45:00 2022-03-09 07:45:00 Outpatient R ARON BELL [facility] [id number] [facility] 2022-03-09 07:45:00 2022-03-09 07:45:00 Outpatient R ARON BELL [facility] [id number] [facility] 2022-03-09 07:45:00 2022-03-09 07:45:00 Outpatient R ARON BELL [facility] [id number] [facility] 2022-03-09 00:00:00 2022-03-09 00:00:00 Telephone Bell Aron [facility] Y[facility]SELIN [facility] [facility] MED[facility] OFFICE BUILDING 1.84114 350.1.13.10 4.2.7.2.686 [id number] 044 [id number] [facility] 2022-03-07 00:00:00 2022-03-07 00:00:00 Refill Doctor Unassigned, [place] [facility] MEDICAL OFFICE BUILDING 1.84114 350.1.13.10 4.2.7.2.686 [id number] [id number] [facility] 2022-03-07 00:00:00 2022-03-07 00:00:00 Refill Doctor Unassigned, [place] [facility] YOSELIN PETER?[facility] MEDICAL OFFICE BUILDING 1.2.840.114 350.1.13.10 4.2.7.2.686 [id number] 044 [id number] [facility] 2022-02-08 00:00:00 2022-02-08 00:00:00 Refill Doctor Unassigned, [place] [facility] MEDICAL OFFICE BUILDING 1.2.840.114 350.1.13.10 4.2.7.2.686 [id number] [id number] [facility] 2022-02-08 00:00:00 2022-02-08 00:00:00 Refill Doctor Unassigned, [place] [facility] MEDICAL OFFICE BUILDING 1.2.840.114 350.1.13.10 4.2.7.2.686 [id number] 044 [id number] [facility] 2022-01-31 08:30:00 2022-01-31 09:39:26 Outpatient ARON MEHTA [facility] [id number] [facility] 2022-01-31 08:30:00 2022-01-31 08:45:00 Office Visit [facility]ron [facility] MEDICAL OFFICE BUILDING 1.2.840.114 350.1.13.10 4.2.7.2.686 [id number] [id number] [facility] 2022-01-31 08:30:00 2022-01-31 08:30:00 Outpatient ARON MEHTA [facility] [id number] [facility] 2022-01-31 08:30:00 2022-01-31 08:30:00 Outpatient ARON MEHTA [facility] [id number] [facility] 2022-01-31 08:30:00 2022-01-31 08:30:00 Outpatient R ARON BELL [facility] [id number] [facility] 2022-01-31 00:00:00 2022-01-31 00:00:00 Telephone Aron Bell [facility] DANIEL?[facility] MED[facility] OFF[facility] BU[facility] 1.2.840.114 350.1.13.10 4.2.7.2.686 [id number] [id number] [facility] 2022-01-29 00:00:00 2022-01-29 00:00:00 Refill PanteraWilmer Pantera [facility] MEDICAL OFFICE BUILDING 1.2.840.114 350.1.13.10 4.2.7.2.686 [id number] 044 [id number] [facility] 2022-01-12 08:45:00 2022-01-12 09:00:00 Office Visit Carlos [facility] DANIEL?[facility] MEDICAL OFFICE BUILDING 1..840.114 350.1.13.10 4.2.7.2.686 [id number] 044 [id number] [facility] 2022-01-12 08:45:00 2022-01-12 08:45:00 Outpatient R ARON BELL [facility] [id number] [facility] 2022-01-12 08:45:00 2022-01-12 08:45:00 Outpatient R BELL ARON [facility] [id number] [facility] 2022-01-04 12:20:00 2022-01-04 12:20:00 Outpatient R RONY NOLASCO [facility] [id number] [facility] 2022-01-04 00:00:00 2022-01-04 00:00:00 Refill Carlos [facility] DANIEL?[facility] MEDICAL OFFICE BUILDING 1.2.840.114 350.1.13.10 4.2.7.2.686 [id number] [id number] [facility] 2022-01-04 00:00:00 2022-01-04 00:00:00 Telephone Aron Bell [facility] YOSELIN PETER?[facility] MEDICAL OFFICE BUILDING 1.2840.114 350.1.13.10 4.2.7.2.686 [id number] 044 [id number] [facility] 2021-12-20 00:00:00 2021-12-20 00:00:00 Telephone Aron Bell [facility] YOSELIN PETER?[facility] MEDICAL OFFICE BUILDING 1..114 350.1.13.10 4.2.7.2.686 [id number] 044 [id number] [facility] 2021-12-17 00:00:00 2021-12-17 00:00:00 Refill Doctor Unassigned, [place] [facility] MEDICAL OFFICE BUILDING 1..114 350.1.13.10 4.2.7.2.686 [id number] 044 [id number] [facility] 2021-12-17 00:00:00 2021-12-17 00:00:00 Refill Aron Bell [facility] YOSELIN PETER?[facility] MEDICAL OFFICE BUILDING 1.114 350.1.13.10 4.2.7.2.686 [id number] 044 [id number] [facility] 2021-12-13 00:00:00 2021-12-13 00:00:00 Refill Doctor Unassigned, [place] [facility] ORELL[facility]E?[facility] MEDICAL OFFICE BUILDING 1.840.114 350.1.13.10 4.2.7.2.686 [id number] 044 [id number] [facility] 2021-12-07 00:00:00 2021-12-07 00:00:00 Refill Doctor Unassigned, [place] [facility] O[facility]LL[facility] MEDICAL OFFICE BUILDING 1.284.114 350.1.13.10 4.2.7.2.686 [id number] 044 [id number] [facility] 2021-11-15 08:30:00 2021-11-15 08:45:00 Office Visit Aron Bell [facility] DANIEL?[facility] OFF[facility] BUILDING 1..840.114 350.1.13.10 4.2.7.2.686 [id number] 044 [id number] [facility] 2021-11-15 08:30:00 2021-11-15 08:30:00 Outpatient Fidel JOSE BELLONY [facility] [id number] [facility] 2021-11-15 08:30:00 2021-11-15 08:20:33 Outpatient Fidel JOSE BELLONY [facility] [id number] [facility] 2021-10-17 00:00:00 2021-10-17 00:00:00 Refill Doctor Unassigned, [place] [facility] DANIEL?[facility] OFFICE BUILDING 1..840.114 350.1.13.10 4.2.7.2.686 [id number] 044 [id number] [facility] 2021-09-13 08:30:00 2021-09-13 08:45:00 Office Visit Aron Bell [facility] DANIEL[facility] 1..840.114 350.1.13.10 4.2.7.2.686 [id number] 044 [id number] [facility] 2021-09-13 08:30:00 2021-09-13 08:30:00 Outpatient Fidel RIVEROBELLARON [facility] [id number] [facility] 2021-09-13 08:30:00 2021-09-13 08:30:00 Outpatient JOSE MEHTAONY [facility] [id number] [facility] 2021-08-31 00:00:00 2021-08-31 00:00:00 Refill Doctor Unassigned, [place] [facility] OFFICE BUILDING ONE 1.2840.114 350.1.13.10 4.2.7.2.686 [id number] 044 [id number] [facility] 2021-08-31 00:00:00 2021-08-31 00:00:00 Refill Doctor Unassigned, [place] [facility] OFFICE BUILDING ONE .114 350.1.13.10 4.2.7.2.686 [id number] 044 [id number] [facility] 2021-08-25 08:45:00 2021-08-25 08:45:00 Outpatient ARON MEHTA [facility] [id number] [facility] 2021-08-25 08:45:00 2021-08-25 08:45:00 Outpatient ARON MEHTA [facility] [id number] [facility] 2021-08-24 14:15:00 2021-08-24 14:15:00 Outpatient ARON MEHTA [facility] [id number] [facility] 2021-08-18 00:00:00 2021-08-18 00:00:00 Refill Carlos Aron [facility] OFFICE BUILDING ONE .114 350.1.13.10 4.2.7.2.686 [id number] 044 [id number] [facility] 2021-08-18 00:00:00 2021-08-18 00:00:00 Refill Doctor Unassigned, [place] [facility] OFFICE BUILDING ONE .114 350.1.13.10 4.2.7.2.686 [id number] 044 [id number] [facility] 2021-08-18 00:00:00 2021-08-18 00:00:00 Patient Secure Msg Doctor Unassigned, [place] [facility] DANIEL?[facility] MEDICAL OFFICE BUILDING 1.114 350.1.13.10 4.2.7.2.686 [id number] 044 [id number] [facility] 2021-08-17 00:00:00 2021-08-17 00:00:00 Refill Doctor Unassigned, [place] [facility] OFFICE BUILDING ONE 1..114 350.1.13.10 4.2.7.2.686 [id number] 044 [id number] [facility] 2021-08-16 00:00:00 2021-08-16 00:00:00 Refill Doctor Unassigned, [place] [facility] OFFICE BUILDING ONE 1.114 350.1.13.10 4.2.7.2.686 [id number] 044 [id number] [facility] 2021-07-20 00:00:00 2021-07-20 00:00:00 Refill Doctor Unassigned, [place] [facility] OFFICE BUILDING ONE 1..114 350.1.13.10 4.2.7.2.686 [id number] 044 [id number] [facility] 2021-06-28 00:00:00 2021-06-28 00:00:00 Refill Aron Bell [facility] OFFICE BUILDING ONE 1.114 350.1.13.10 4.2.7.2.686 [id number] 044 [id number] [facility] 2021-06-27 09:15:00 2021-06-27 09:30:00 Uptwist Spinner Visit Lab, Vijay - Aron Cuevas [facility] DANIEL?[facility] MEDICAL OFFICE BUILDING 1.114 350.1.13.10 4.2.7.2.686 [id number] [facility] 2021-06-27 09:15:00 2021-06-27 09:15:00 Outpatient R ARON BELL [facility] [id number] [facility] 2021-06-27 08:45:00 2021-06-27 09:00:00 Office Visit Aron Bell [facility] DANIEL?[facility] MEDICAL OFFICE BUILDING 1.2.840.114 350.1.13.10 4.2.7.2.686 [id number] 044 [id number] [facility] 2021-06-27 08:45:00 2021-06-27 08:45:00 Outpatient ARON MEHTA [facility] [id number] [facility] 2021-06-27 00:00:00 2021-06-27 00:00:00 Orders Only Doctor Unassigned, [place] [facility] 1.840.114 350.1.13.10 4.2.7.2.686 [id number] [facility] 2021-06-22 00:00:00 2021-06-22 00:00:00 Refill Doctor Unassigned, [place] [facility] OFFICE BUILDING ONE 1.840.114 350.1.13.10 4.2.7.2.686 [id number] [id number] [facility] 2021-06-22 00:00:00 2021-06-22 00:00:00 Refill Doctor Unassigned, [place] [facility] OFFICE BUILDING ONE 1.840.114 350.1.13.10 4.2.7.2.686 [id number] 044 [id number] [facility] 2021-05-23 00:00:00 2021-05-23 00:00:00 Refill Doctor Unassigned, [place] [facility] OFFICE BUILDING ONE .840.114 350.1.13.10 4.2.7.2.686 [id number] 044 [id number] [facility] 2021-05-02 08:45:00 2021-05-02 08:59:02 Outpatient ARON MEHTA [facility] [id number] [facility] 2021-05-02 08:38:23 2021-05-02 08:53:23 Office Visit Aron Bell [facility] DANIEL?[facility] OFF[facility] BUILDING 1.84.114 350.1.13.10 4.2.7.2.686 [id number] 044 [id number] [facility] 2021-05-02 08:45:00 2021-05-02 08:45:00 Outpatient R ARON BELL [facility] [id number] [facility] 2021-04-22 00:00:00 2021-04-22 00:00:00 Refill Doctor Unassigned, [place] [facility] OFFICE BUILDING ONE 1.114 350.1.13.10 4.2.7.2.686 [id number] 044 [id number] [facility] 2021-04-21 00:00:00 2021-04-21 00:00:00 Refill Carlos Aron [facility] OFFICE BUILDING ONE 1.114 350.1.13.10 4.2.7.2.686 [id number] 044 [id number] [facility] 2021-03-31 00:00:00 2021-03-31 00:00:00 Orders Only Doctor Unassigned, [place] [facility] 1.114 350.1.13.10 4.2.7.2.686 [id number] [facility] 2021-03-29 00:00:00 2021-03-29 00:00:00 Telephone Wilmer Hanson [facility] Daniel?Francesca donovan Medical Office Building 1.84.114 350.1.13.10 4.2.7.2.686 [id number] 044 [id number] [facility] 2021-03-28 00:00:00 2021-03-28 00:00:00 Refill Carlos [facility] Daniel?Francesca donovan Medical Office Building 1.84.114 350.1.13.10 4.2.7.2.686 [id number] [id number] [facility] 2021-03-28 00:00:00 2021-03-28 00:00:00 Refill Doctor Unassigned, [place] [facility]?Francesca man Medical Office Building 1..840.114 350.1.13.10 4.2.7.2.686 [id number] [id number] [facility] 2021-03-05 10:15:44 2021-03-05 23:59:00 Hospital Encounter [facility]ancesca macias [facility] Office Building 1..840.114 350.1.13.10 4.2.7.2.686 [id number] [facility] 2021-03-05 10:15:44 2021-03-05 23:59:00 Outpatient R RONY NOLASCO [facility] [id number] [facility] 2021-03-05 09:50:47 2021-03-05 10:52:52 Urgent Care Rony Nolasco Jade Caro [facility]?Francesca man Medical Office Building 1..840.114 350.1.13.10 4.2.7.2.686 [id number] [facility] 2021-02-28 09:00:00 2021-02-28 09:00:00 Outpatient R ARON BELL [facility] [id number] [facility] 2021-02-28 08:14:06 2021-02-28 08:29:06 Office Visit Aron Bell [facility]?Francesca man Medical Office Building 1..840.114 350.1.13.10 4.2.7.2.686 [id number] 044 [id number] [facility] 2021-01-26 00:00:00 2021-01-26 00:00:00 Refill Aron Bell [facility] Office Building One 1.2840.114 350.1.13.10 4.2.7.2.686 [id number] [id number] [facility] 2021-01-26 00:00:00 2021-01-26 00:00:00 Refill Aron Bell [facility] Office Building One 1.2.840.114 350.1.13.10 4.2.7.2.686 [id number] [id number] [facility] 2020-12-28 09:30:00 2020-12-28 09:30:00 Outpatient R ARON BELL [facility] [id number] [facility] 2020-12-28 08:48:08 2020-12-28 09:03:08 Office Visit Carlos [facility] Office Building One 1.2840.114 350.1.13.10 4.2.7.2.686 [id number] 044 [id number] [facility] 2020-11-29 00:00:00 2020-11-29 00:00:00 Refill Carlos [facility] Office Building One 1.2840.114 350.1.13.10 4.2.7.2.686 [id number] [id number] [facility] 2020-11-01 00:00:00 2020-11-01 00:00:00 Telephone Aron Bell [facility] Office Building One 1.2840.114 350.1.13.10 4.2.7.2.686 [id number] 044 [id number] [facility] 2020-10-26 09:18:44 2020-10-26 09:33:44 [facility] 1.2840.114 350.1.13.10 4.2.7.2.686 [id number] [id number] [facility] 2020-10-26 09:30:00 2020-10-26 09:30:00 Outpatient ARON MEHTA [facility] [id number] [facility] 2020-10-26 00:00:00 2020-10-26 00:00:00 Orders Only Doctor Unassigned, [place] [facility] 1.0.114 350.1.13.10 4.2.7.2.686 [id number] [facility] 2020-10-11 07:30:00 2020-10-11 07:30:00 Outpatient ARON MEHTA [facility] [id number] [facility] 2020-10-07 00:00:00 2020-10-07 00:00:00 [facility] 1..114 350.1.13.10 4.2.7.2.686 [id number] 044 [id number] [facility] 2020-10-07 00:00:00 2020-10-07 00:00:00 RefAron Hernandez [facility] Office Building One 1..114 350.1.13.10 4.2.7.2.686 [id number] 044 [id number] [facility] 2020-10-02 00:00:00 2020-10-02 00:00:00 Aron Morales [facility] Building 1.840.114 350.1.13.10 4.2.7.2.686 [id number] 044 [id number] [facility] 2020-10-01 00:00:00 2020-10-01 00:00:00 Refill Carlos [facility] Office Building One 1..114 350.1.13.10 4.2.7.2.686 [id number] 044 [id number] [facility] 2020-09-01 00:00:00 2020-09-01 00:00:00 Telephone Aron Bell [facility] nal Building 1.840.114 350.1.13.10 4.2.7.2.686 [id number] 044 [id number] [facility] 2020-08-31 00:00:00 2020-08-31 00:00:00 Refill Carlos [facility] Office Building One 1..114 350.1.13.10 4.2.7.2.686 [id number] [id number] [facility] 2020-08-24 00:00:00 2020-08-24 00:00:00 Patient Outreach Brandan Bazan [facility] 1..114 350.1.13.10 4.2.7.2.686 [id number] [facility] 2020-08-15 08:35:00 2020-08-15 08:35:00 Outpatient LEANDRO ALBERTS [facility] [id number] [facility] 2020-08-11 07:45:00 2020-08-11 07:45:00 Outpatient ARON MEHTA [facility] [id number] [facility] 2020-08-11 06:59:47 2020-08-11 07:14:47 Office Visit Bell [facility] Office Building One 1..114 350.1.13.10 4.2.7.2.686 [id number] 044 [id number] [facility] 2020-08-06 00:00:00 2020-08-06 00:00:00 Telephone Aron Bell [facility] Office Building One 1..114 350.1.13.10 4.2.7.2.686 [id number] 044 [id number] [facility] 2020-08-04 00:00:00 2020-08-04 00:00:00 Refill Carlos [facility] Office Building One 1.20.114 350.1.13.10 4.2.7.2.686 [id number] 044 [id number] [facility] 2020-07-30 00:00:00 2020-07-30 00:00:00 Refill Carlos [facility] Office Building One 1.840.114 350.1.13.10 4.2.7.2.686 [id number] 044 [id number] [facility] 2020-07-01 00:00:00 2020-07-01 00:00:00 Telephone Aron Bell [facility] Office Building One 1.0.114 350.1.13.10 4.2.7.2.686 [id number] 044 [id number] [facility] 2020-05-31 09:10:11 2020-05-31 09:25:11 Office Visit Aron Bell [facility] Office Building One 1.2.114 350.1.13.10 4.2.7.2.686 [id number] [facility] 2020-05-31 09:15:00 2020-05-31 09:15:00 Outpatient R ARON BELL [facility] [id number] [facility] 2020-05-10 08:00:00 2020-05-10 08:00:00 Outpatient R ARON BELL [facility] [id number] [facility] 2020-05-06 00:00:00 2020-05-06 00:00:00 Refill Carlos [facility] Office Building One 1..114 350.1.13.10 4.2.7.2.686 [id number] [id number] [facility] 2020-05-05 00:00:00 2020-05-05 00:00:00 Aaron Bell [facility] Office Building One 1.2840.114 350.1.13.10 4.2.7.2.686 [id number] [id number] [facility] 2020-04-05 00:00:00 2020-04-05 00:00:00 Aaron Bell [facility] Office Building One 1.840.114 350.1.13.10 4.2.7.2.686 [id number] [id number] [facility] 2020-03-29 14:15:00 2020-03-29 23:59:00 Hospital Encounter Alexys Waggoner [facility] 1.840.114 350.1.13.10 4.2.7.2.686 [id number] [facility] 2020-03-29 14:36:25 2020-03-29 16:04:04 Office Visit Alexys Waggoner [facility]anc[facility] [place] 1.2840.114 350.1.13.10 4.2.7.2.686 [id number] [facility] 2020-03-29 15:00:00 2020-03-29 15:00:00 Outpatient R ALEXYS WAGGONER [facility] [id number] [facility] 2020-03-29 00:00:00 2020-03-29 00:00:00 Orders Only Doctor Unassigned, [place] [facility] 1.2.840.114 350.1.13.10 4.2.7.2.686 [id number] [facility] 2020-03-26 00:00:00 2020-03-26 00:00:00 Telephone Alexys Waggoner [facility] yanci [place] 1.2840.114 350.1.13.10 4.2.7.2.686 [id number] [facility] 2020-03-22 00:00:00 2020-03-22 00:00:00 Telephone Aron Bell [facility] Office Building One 1..114 350.1.13.10 4.2.7.2.686 [id number] [id number] [facility] 2020-03-08 08:30:00 2020-03-08 08:30:00 Outpatient ARON MEHTA [facility] [id number] [facility] 2020-03-08 07:54:27 2020-03-08 08:09:27 [facility] 1..114 350.1.13.10 4.2.7.2.686 [id number] [id number] [facility] 2020-02-26 00:00:00 2020-02-26 00:00:00 [facility] 1..114 350.1.13.10 4.2.7.2.686 [id number] 044 [id number] [facility] 2020-02-04 09:15:00 2020-02-04 09:15:00 Outpatient R ARON BELL [facility] [id number] [facility] 2020-02-04 08:53:38 2020-02-04 09:08:38 Office Visit rAon Bell [facility] Building 1..114 350.1.13.10 4.2.7.2.686 [id number] [facility] 2020-01-08 09:16:01 2020-01-08 09:31:01 Uptwist Spinner Visit 2, Adc Lab Aron Bell [facility] Building 1.0.114 350.1.13.10 4.2.7.2.686 [id number] [facility] 2020-01-08 09:15:00 2020-01-08 09:15:00 Outpatient ARON MEHTA [facility] [id number] [facility] 2020-01-08 08:59:06 2020-01-08 09:14:00 Office Visit Aron Bell [facility] Building 1..840.114 350.1.13.10 4.2.7.2.686 [id number] [id number] [facility] 2020-01-08 09:00:00 2020-01-08 09:00:00 Outpatient ARON MEHTA [facility] [id number] [facility] 2019-12-09 00:00:00 2019-12-09 00:00:00 [facility] 1..840.114 350.1.13.10 4.2.7.2.686 [id number] [facility] 2019-12-09 00:00:00 2019-12-09 00:00:00 Refill Carlos [facility] Office Building One 1..840.114 350.1.13.10 4.2.7.2.686 [id number] [facility] 2019-11-11 08:00:00 2019-11-11 08:00:00 Outpatient ARON MEHTA [facility] [id number] [facility] 2019-11-11 07:26:10 2019-11-11 07:41:10 Telemedici ne Visit Aron Bell [facility] Building 1..840.114 350.1.13.10 4.2.7.2.686 [id number] [facility] 2019-10-08 00:00:00 2019-10-08 00:00:00 Refill [facility] 1.2840.114 350.1.13.10 4.2.7.2.686 [id number] [facility] 2019-09-17 00:00:00 2019-09-17 00:00:[address] Bell [facility] nal Building 1.2.840.114 350.1.13.10 4.2.7.2.686 [id number] [facility] 2019-09-10 06:49:41 2019-09-10 07:04:41 Telemedici ne Visit Carlos [facility] 1.840.114 350.1.13.10 4.2.7.2.686 [id number] [facility] 2019-09-10 07:00:00 2019-09-10 07:00:00 Outpatient R ARON BELL [facility] [id number] [facility] 2019-08-29 00:00:00 2019-08-29 00:00:00 Telephone [facility] 1.840.114 350.1.13.10 4.2.7.2.686 [id number] [facility] 2019-08-29 00:00:00 2019-08-29 00:00:00 Refill [facility] 1.840.114 350.1.13.10 4.2.7.2.686 [id number] 044 [id number] [facility] 2019-08-14 00:00:00 2019-08-14 00:00:00 Refill Carlos [facility] One 1.2840.114 350.1.13.10 4.2.7.2.686 [id number] [id number] [facility] 2019-08-11 00:00:00 2019-08-11 00:00:00 Refill Aron Bell [facility] Office Building One 1.2.840.114 350.1.13.10 4.2.7.2.686 [id number] [id number] [facility] 2019-07-15 06:57:16 2019-07-15 07:12:16 Office Visit Aron Bell [facility] Office Building One 1.2.840.114 350.1.13.10 4.2.7.2.686 [id number] [id number] [facility] 2019-07-14 00:00:00 2019-07-14 00:00:00 Orders Only Doctor Unassigned, [place] [facility] 1.2.840.114 350.1.13.10 4.2.7.2.686 [id number] [facility] 2019-03-01 00:00:00 2019-03-01 00:00:00 Telephone Aron Bell [facility] 1.2.840.114 350.1.13.10 4.2.7.2.686 [id number] 044 [id number] [facility] 2019-02-10 00:00:00 2019-02-10 00:00:00 Refill Aron Bell [facility] 1.2.840.114 350.1.13.10 4.2.7.2.686 [id number] [id number] [facility] 2019-01-31 00:00:00 2019-01-31 00:00:00 Telephone Aron Bell [facility] 1.2.840.114 350.1.13.10 4.2.7.2.686 [id number] [facility] 2019-01-28 00:00:00 2019-01-28 00:00:00 Refill Aron Bell [facility] [address] 1..840.114 [id number] [facility] 2019-01-13 09:00:09 2019-01-13 09:20:56 Office Visit Aron Bell [facility] [address] 1..840.114 [id number] [facility] Notes Date/Time Note Provider Source 2025-02-05 17:50:57 Please review and sign if appropriate: Last office visit: 08/21/24 Next office visit: 02/11/25 Requested Prescriptions Pending Prescriptions Disp Refills ALPRAZolam 1 mg tablet 90 tablet 5 Sig: Take 1 tablet by mouth 3 times daily as needed for Other (anxiety). Last refill date: 08/13/24 Notes: The encounter diagnosis was Chronic low back pain without sciatica, unspecified back pain laterality. Maya Miguel LVN [facility] 2025-01-11 17:42:48 Please review, complete, and sign if appropriate. [facility] 2025-01-09 09:30:49 Copied from [facility] #[id number]. Topic: Clinical - Referral >> Jan 09, 2025 9:26 AM Patient Master Police Detective wrote: Eitan Murrell is a 69 year old male is requesting a referral to: Dept: Pain Management Reason for referral: Back Pain Duration of problem: Internal / External referral: Name of provider / location patient requesting: Dr. Eric Waite / [address] [place] [address] Phone number: [phone] Fax number: Appt already scheduled?: yes If yes, date of appt.: 02/11 Fito Stewart [facility] 2024-12-15 10:28:36 Eitan Murrell is a 69 year old male Patient is calling, in requesting a refill. Patient put in a request but no response was given can we lease advise the patient on what he needs to do to get his refills. Last message stated an upcoming appt that is in February but patient wasn't advised on whether he can get a refill. Please Advise T [facility] 2024-12-10 13:48:26 Recent Visits Date Type Provider Dept 08/21/24 Office Visit Wilmer Hanson MD [facility] 03/19/24 Office Visit Aron Bell MD [facility] Showing recent visits within past 540 days with a meds authorizing provider and meeting all other requirements Future Appointments Date Type Provider Dept 02/18/25 Appointment Aron Bell MD [facility] Showing future appointments within next 150 days with a meds authorizing provider and meeting all other requirements Last refill was Disp Refills Start End KASSY zolpidem 10 mg tablet 30 tablet 0 10/29/2024 -- -- Sig: Take 1 tablet by mouth at bedtime as needed for Insomnia. Sent to pharmacy as: zolpidem 10 mg tablet (AMBIEN) T [facility] 2024-10-29 08:41:58 Notes: please review and advise Last Refilled: Disp Refills Start End KASYS zolpidem 10 mg tablet 30 tablet 0 09/11/2024 -- -- Sig: Take 1 tablet by mouth at bedtime as needed for Insomnia. Sent to pharmacy as: zolpidem 10 mg tablet (AMBIEN) Class: eRX Route: Oral Order: [id number] Date/Time Signed: 09/11/2024 15:46 E-Prescribing Status: Receipt confirmed by pharmacy (09/11/2024 3:46 PM CDT) Recent Visits Date Type Provider Dept 08/21/24 Office Visit Wilmer Hanson MD [facility] 03/19/24 Office Visit Aron Bell MD [facility] Showing recent visits within past 540 days with a meds authorizing provider and meeting all other requirements Future Appointments Date Type Provider Dept 02/18/25 Appointment Aron Bell MD [facility] Showing future appointments within next 150 days with a meds authorizing provider and meeting all other requirements [facility] 2024-09-11 14:30:12 Notes: Please review and advise Last Refilled: zolpidem 10 mg tablet 30 tablet 0 07/16/2024 -- -- Sig: Take 1 tablet by mouth at bedtime as needed for Insomnia. Sent to pharmacy as: zolpidem 10 mg tablet (AMBIEN) Class: eRX Route: Oral Order: [id number] Date/Time Signed: 07/16/2024 15:50 E-Prescribing Status: Receipt confirmed by pharmacy (07/16/2024 3:50 PM RN [facility]) Recent Visits Date Type Provider Dept 08/21/24 Office Visit Wilmer Hanson MD [facility] 03/19/24 Office Visit Aron Bell MD [facility] Showing recent visits within past 540 days with a meds authorizing provider and meeting all other requirements Future Appointments No visits were found meeting these conditions. Showing future appointments within next 150 days with a meds authorizing provider and meeting all other requirements [facility] 2024-08-13 12:45:50 Notes: please review and advise Last Refilled: ALPRAZolam 1 mg tablet 90 tablet 5 03/19/2024 -- -- Sig: Take 1 tablet by mouth 3 (three) times daily as needed for Other (anxiety). Sent to pharmacy as: ALPRAZolam 1 mg tablet (XANAX) Class: eRX Route: Oral Order: [id number] Date/Time Signed: 03/19/2024 12:48 E-Prescribing Status: Receipt confirmed by pharmacy (03/19/2024 12:49 PM CDT) Recent Visits Date Type Provider Dept 03/19/24 Office Visit Aron Bell MD [facility] 03/19/23 Office Visit Aron Bell MD [facility] Showing recent visits within past 540 days with a meds authorizing provider and meeting all other requirements Future Appointments No visits were found meeting these conditions. Showing future appointments within next 150 days with a meds authorizing provider and meeting all other requirements [facility] 2024-08-07 10:03:19 Called pt left , stated he needed appt. [facility] 2024-08-07 06:21:35 Needs to be seen. [facility] 2024-08-06 16:38:55 Unable to contact patient - closing encounter [facility] Kelli Sarabia [facility] 2024-08-06 15:59:44 Please assist with scheduling an office visit with Provider to discuss refills. Thank you. [facility] 2024-08-06 15:45:12 Need to be seen [facility] 2024-08-06 14:49:05 Please review and sign if appropriate: Last office visit: 03/19/24 Next office visit: not scheduled Requested Prescriptions Pending Prescriptions Disp Refills codeine-guaifenesin 10-100 mg/5 mL oral solution 180 mL 0 Sig: Take 10 mL by mouth every 6 (six) hours as needed for Cough. Indications: cough Last refill date: 11/29/22 Notes: The encounter diagnosis was Bronchitis. [facility] 2024-08-06 13:49:48 Eitan Murrell is a 69 year old male and the pt is checking on the status of this medication. Please contact and advise. [facility] June Rodriguez [facility] 2024-08-06 12:12:44 Eitan Murrell is a 69 year old male calling to let the Dr know that he`s wanting the AC perez tussin cough medication [id number] [place] [address] [facility] [employer] [place] [address] [place] [id number] [facility] Karo Spain [facility] 2024-08-06 11:31:08 LMTCB Maya Miguel LVN 08/06/2024 -which refill is needed [facility] 2024-08-05 19:04:57 Eitan Murrell is a 69 year old male Patient is calling requesting a refill for a medication that he took off his med list. Please advise. [facility] Li Kingston [facility] 2024-07-16 14:54:41 Images from the original note were not included. Notes: Last Refilled: zolpidem 10 mg tablet Sig: Take 1 tablet by mouth at bedtime as needed for Insomnia. Disp: 30 tablet Refills: 0 Start: 07/16/2024 Class: eRX PDMP Needs Review For: Insomnia, unspecified type Last ordered: 1 month ago (05/29/2024) by Aron Bell MD Provider Review Required [id number]/16/2024 02:21 PM Protocol Details This refill cannot be delegated Valid encounter within last 12 months To be filled at: [facility] #[id number] - [place], [place] - [address] [employer] Recent Visits Date Type Provider Dept 03/19/24 Office Visit Aron Bell MD [facility] 03/19/23 Office Visit Aron Bell MD [facility] Showing recent visits within past 540 days with a meds authorizing provider and meeting all other requirements Future Appointments No visits were found meeting these conditions. Showing future appointments within next 150 days with a meds authorizing provider and meeting all other requirements [facility] Teena Bojorquez MA [facility] 2024-05-29 15:35:13 Addended by: ARON BELL MD on: 05/29/2024 03:35 PM Modules accepted: Orders [facility] 2024-05-23 10:34:04 Recent Visits Date Type Provider Dept 03/19/24 Office Visit Aron Bell MD [facility] 03/19/23 Office Visit Aron Bell MD [facility] Showing recent visits within past 540 days with a meds authorizing provider and meeting all other requirements Future Appointments No visits were found meeting these conditions. Showing future appointments within next 150 days with a meds authorizing provider and meeting all other requirements Last refill was Disp Refills Start End KASSY zolpidem 10 mg tablet 30 tablet 0 04/21/2024 -- -- Sig: Take 1 tablet by mouth at bedtime as needed for Insomnia. Sent to pharmacy as: zolpidem 10 mg tablet (AMBIEN) [facility] 2024-05-23 08:44:20 Eitan Murrell is a 69 year old male Pt is calling requesting a refill request for his zolpidem 10 mg tablet Please call and advise. [facility] #[id number] - [place], [place] - [address] [employer] [address] [place] [address] [facility] 2024-05-16 10:16:34 Images from the original note were not included. Notes: Last Refilled: Name from pharmacy: SILDENAFIL 100MG TABLETS Will file in chart as: SILDENAFIL 100 mg tablet Sig: TAKE 1 TABLET BY MOUTH EVERY DAY NEEDED Disp: 8 tablet Refills: 5 (Pharmacy requested: Not specified) Start: 05/16/2024 Class: eRX Non-formulary For: Erectile dysfunction, unspecified erectile dysfunction type Last ordered: 1 year ago (05/14/2023) by Aron Bell MD Last refill: 01/25/2024 Rx #: [id number]|1|0|1 Off-Protocol [id number]/16/2024 09:06 AM Protocol Details Medication not assigned to a protocol, forward to provider. Valid encounter within last 12 months Phosphodiesterase 5 Enzyme Inhibitor Failed Protocol Details ALT in normal range and within 360 days AST in normal range and within 360 days Cr in normal range and within 360 days K in normal range and within 360 days Na in normal range and within 360 days Valid encounter within last 12 months To be filled at: [facility] #[id number] - [place], [place] - [address] [facility] Recent Visits Date Type Provider Dept 03/19/24 Office Visit Aron Bell MD [facility] 03/19/23 Office Visit Aron Bell MD [facility] Showing recent visits within past 540 days with a meds authorizing provider and meeting all other requirements Future Appointments No visits were found meeting these conditions. Showing future appointments within next 150 days with a meds authorizing provider and meeting all other requirements [facility] Teena Bojorquez MA [facility] 2024-04-18 09:27:08 Notes: please review and advise Last Refilled: Disp Refills Start End KASSY zolpidem 10 mg tablet 30 tablet 0 03/19/2024 -- -- Sig: Take 1 tablet by mouth at bedtime as needed for Insomnia. Sent to pharmacy as: zolpidem 10 mg tablet (AMBIEN) Class: eRX Route: Oral Order: [id number] Date/Time Signed: 03/19/2024 12:48 E-Prescribing Status: Receipt confirmed by pharmacy (03/19/2024 12:49 PM CDT) Recent Visits Date Type Provider Dept 03/19/24 Office Visit Aron Bell MD [facility] 03/19/23 Office Visit Aron Bell MD [facility] 11/16/22 Office Visit Aron Bell MD [facility] Showing recent visits within past 540 days with a meds authorizing provider and meeting all other requirements Future Appointments No visits were found meeting these conditions. Showing future appointments within next 150 days with a meds authorizing provider and meeting all other requirements [facility] 2024-03-19 12:30:00 Addended by: ARON BELL MD on: 03/19/2024 12:54 PM Modules accepted: Orders [facility] 2024-03-19 12:30:00 Addended by: GILLIAN CALABRESE on: 03/19/2024 01:02 PM Modules accepted: Orders [facility] 2024-03-11 10:47:43 Notes: Last Refilled: Refills have been requested for the following medications: ALPRAZolam 1 mg tablet [Aron Bell] Preferred pharmacy: [facility] #[id number] - [place], [place] - [address] [employer] Delivery method: Pickup Recent Visits Date Type Provider Dept 03/19/23 Office Visit Aron Bell MD [facility] 11/16/22 Office Visit Aron Bell MD [facility] 10/03/22 Office Visit Aron Bell MD [facility] Showing recent visits within past 540 days with a meds authorizing provider and meeting all other requirements Future Appointments No visits were found meeting these conditions. Showing future appointments within next 150 days with a meds authorizing provider and meeting all other requirements From: Eitan Murrell To: Office of Aron Bell Sent: 03/11/2024 10:32 AM CDT Subject: Medication Renewal Request Refills have been requested for the following medications: ALPRAZolam 1 mg tablet [Aron eBll] Preferred pharmacy: [facility] #[id number] - [place], [place] - [address] AT [address] Delivery method: Pickup [facility] 2023-11-05 10:23:39 Patient will call back and schedule an appointment. Lázaro Mcqueen [facility] 2023-11-05 09:55:07 Please let PSS know if this is approved by provider and we will call pt to schedule. [facility] 2023-11-04 12:10:59 Eitan Murrell is a 68 year old male Patient calling states he had to cancel his appt with his provider due to transportation issues Patient would like to know if provider would consider a televist appt Please advise [phone] (home) [phone] (work) [facility] #[id number] - [place], [place] - [address] [employer] [address] [employer] [address] Alisson Escalera [facility] 2023-10-03 07:42:10 Contacted patient and left private, detailed voicemail informing patient he will need to schedule appointment with Dr. Bell or see Urgent Care. Kirti Nur LVN 10/03/2023 7:43 AM [facility] 2023-10-03 06:22:30 Sounds like bad allergy symptoms, needs to be seen. T [facility] 2023-10-02 16:47:[address] Bell is out of office and his message has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
[2025-03-17] MEDS ORDERED: HYDROCODONE/APAP 5/325 MG TAB ONE (16:58)
--- NOTE | 2025-03-17 17:04 | RAD REPORT ---
EXAMINATION: ONE VIEW CHEST XR CLINICAL INDICATION: Male, 69 years old.,PAIN TECHNIQUE: Frontal chest projection is submitted. Examination is limited by patient positioning and t echnique. COMPARISON: 03/11/2023 FINDINGS: The lungs are grossly clear although suboptimal inspiratory effort somewhat limits evaluation. No pn eumothorax or sizable effusion. The heart is normal in size. Mediastinal contours are unremarkable. IMPRESSION: No acute intrathoracic abnormalities.
[2025-03-17 17:13] LABS: Absolute Lymphocytes (CBC) 1.1 K/uL (0.7-4.9); Hematocrit 39.8 % (39.6-49.0); Hemoglobin 13.1 g/dL (13.6-17.9); MCH 30.1 pg (27.0-35.0); MCHC 32.8 g/dL (32.0-36.0); MCV 91.6 fL (80-100); MPV 8.8 fL (7.6-11.3); Nucleated RBC Absolute Count 0.0 (0-0); Nucleated Red Blood Cells % 0.0 % (0-0); RBC Red Blood Cell Count 4.34 M/uL (4.33-5.43); White Blood Count 5.10 thou/uL (4.3-10.9)
[2025-03-17 17:34] LABS: ALT/SGPT 32 U/L (16-61); AST/SGOT 33 U/L (15-37); Albumin 2.9 g/dL (3.4-5.0); Albumin/Globulin Ratio 0.9 (1.1-1.8); Alkaline Phosphatase 102 U/L (45-117); Anion Gap 9.5 mEq/L (5.0-15.0); BUN Blood Urea Nitrogen 24 mg/dL (7-18); Bilirubin Indirect, Calculated 0.1 mg/dL (0.2-0.8); Globulin 3.3 g/dL (2.3-3.5); Glucose Level 106 mg/dL (74-106); Magnesium 2.2 mg/dL (1.6-2.4); Potassium 4.5 mEq/L (3.5-5.1); Troponin High Sensitivity 13.1 pg/mL (<58.9)
--- NOTE | 2025-03-17 18:25 | RAD REPORT ---
EXAM: CT brain without contrast HISTORY: DIZZINESS COMPARISON: 09/10/2022 TECHNIQUE: Multiple contiguous axial images were obtained and a CT of the brain without contrast. Sag ittal and coronal reformats were performed. FINDINGS: No evidence of hydrocephalus, intracranial hemorrhage, or extra-axial fluid collection. The brain is normal in morphology. The calvarium is intact. Near-complete opacification of the left maxillary sinus and bilateral fronta l sinus, with left maxillary sinus air-fluid level. Other moderate paranasal sinus opacification predominantly on the left IMPRESSION: No evidence of acute intracranial abnormality. Left predominant paranasal sinus opacities as above, please correlate for signs/symptoms of acute sin usitis. EXAM: CT of the cervical spine without contrast HISTORY: DIZZINESS COMPARISON: None TECHNIQUE: Multiple contiguous axial images were obtained in a CT of the cervical spine without contr ast. Sagittal and coronal reformats were performed. FINDINGS: The vertebral bodies demonstrate normal height and alignment. No evidence of acute fracture or subluxation.. Mild degenerative changes are present. No prevertebral soft tissue swelling is seen. The posterior facets are well aligned. Normal alignment of the skull base with the cervical spine is seen. The lung apices are unremarkable. IMPRESSION: No evidence of acute osseous abnormality of the cervical spine.
--- NOTE | 2025-03-17 19:01 | EDPHYS ---
Physician Documentation [facility] Name: Seng Godfrey Age: 69 yrs Sex: Male : 1955 Arrival Date: 03/17/2025 Time: 16:25 Bed 7 Private MD: ED Physician Clemente Spring HPI: 03/17 18:34 This 69 yrs old Male presents to ER via EMS with complaints of multiple falls, chronic kb pain. 18:34 Pt is a 69 year old male who presents for multiple falls that started 2 days ago. kb States he he lost his balance 2 days ago and fell. States he hit his head at that time and since then has fallen a few times. Denies loc. States he is out of his norco, ativan and ambien as well because he dropped it after he got home from the pharmacy and couldn't find any of the pills on the ground. . Historical: - Allergies: 16:56 Talwin; ss - PMHx: 16:56 chronic back pain; ss - PSHx: 16:56 left arm; ss - Immunization history:: Adult Immunizations up to date. - Infectious Disease History:: Denies. - Social history:: Smoking status: Patient denies any tobacco usage or history of. ROS: 18:32 Constitutional: As per HPI kb Exam: 17:08 Constitutional: This is a well developed, well nourished patient who is awake, alert, kb and in no acute distress. Head/Face: Normocephalic, atraumatic. ENT: Moist Mucous membranes Cardiovascular: Regular rate Respiratory: Respirations even and unlabored. No increased work of breathing. Talking in full sentences MS/ Extremity: Pulses equal, no cyanosis. Neurovascular intact. Full, normal range of motion. Neuro: Awake and alert, GCS 15, oriented to person, place, time, and situation. 17:08 ECG was reviewed by the Attending Physician. 17:08 Skin: injury, abrasion(s), moderate sized abrasion noted, of the left knee, Vital Signs: 16:33 BP 130 / 69; Pulse 76; Resp 15; Temp 97.9(O); Pulse Ox 97% on R/A; Weight 114.31 kg; ss Height 5 ft. 8 in. ; Pain 6/10; 17:00 BP 121 / 65; Pulse 73; Resp 19; Pulse Ox 99% on R/A; ab3 17:40 Pain 4/10; ab3 17:50 BP 142 / 80; Pulse 66; Resp 20; Pulse Ox 97% on R/A; Pain 4/10; ab3 19:00 BP 139 / 79; Pulse 64; Resp 19; Pulse Ox 97% on R/A; ab3 21:13 BP 123 / 60; Pulse 59; Resp 18; Pulse Ox 95% on R/A; cc6 16:33 Body Mass Index 38.32 (114.31 kg, 172.72 cm) ss 16:33 Pain Scale: Adult ss 17:40 Pain Scale: Adult ab3 17:50 Pain Scale: Adult ab3 MDM: 16:33 Medical Screening Exam initiated kb 18:34 Differential diagnosis: abrasion, closed head injury, contusion. Data reviewed: vital kb signs, nurses notes. Historians other than the Patient: EMS: [facility]. 19:00 Consideration of Admission/Observation Patient was admitted/placed on observation. kb Escalation of care including admission/observation considered. Management of patient was discussed with the following: Hospitalist: ANTWAN Underwood accepts pt for admission under Dr Montgomery. Counseling: I had a detailed discussion with the patient and/or guardian regarding the historical points, exam findings, and any diagnostic results supporting the discharge/admit diagnosis, lab results, radiology results, the need for further work-up and treatment in the hospital. 03/17 16:33 Order name: Basic Metabolic Panel; Complete Time: 17:37 kb 03/17 16:33 Order name: CBC with Diff; Complete Time: 17:37 kb 03/17 16:33 Order name: Hepatic Function; Complete Time: 17:37 kb 03/17 16:33 Order name: Magnesium; Complete Time: 17:37 kb 03/17 16:33 Order name: Troponin High Sensitivity; Complete Time: 17:37 kb 03/17 21:33 Order name: CBC with Automated Diff EDMS 03/17 21:33 Order name: CBC with Automated Diff EDMS 03/17 21:33 Order name: CBC with Automated Diff EDMS 03/17 21:33 Order name: Comprehensive Metabolic Panel EDMS 03/17 21:33 Order name: Comprehensive Metabolic Panel EDMS 03/17 21:33 Order name: Comprehensive Metabolic Panel EDMS 03/17 21:33 Order name: Magnesium EDMS 03/17 21:33 Order name: Magnesium EDMS 03/17 21:33 Order name: Magnesium EDMS 03/17 16:33 Order name: CT Head C Spine; Complete Time: 18:28 kb 03/17 16:33 Order name: Chest Single View XRAY; Complete Time: 17:05 kb 03/17 21:29 Order name: Brain With Cont EDMS 03/17 21:30 Order name: Brain With Cont EDMS 03/17 21:30 Order name: Carotid Artery Bilateral EDMS 03/17 21:30 Order name: Echo with Doppler EDMS 03/17 21:30 Order name: Echo with Doppler EDMS 03/17 16:33 Order name: EKG; Complete Time: 16:34 kb 03/17 21:31 Order name: Physical Therapy Consult EDMS 03/17 16:33 Order name: Cardiac monitoring; Complete Time: 17:05 kb 03/17 16:33 Order name: EKG - Nurse/Tech; Complete Time: 17:05 kb 03/17 16:33 Order name: IV Saline Lock; Complete Time: 17:08 kb 03/17 16:33 Order name: Labs collected and sent; Complete Time: 17:08 kb 03/17 16:33 Order name: NPO; Complete Time: 19:33 kb 03/17 16:33 Order name: O2 Per Protocol; Complete Time: 17:16 kb 03/17 16:33 Order name: O2 Sat Monitoring; Complete Time: 17:16 kb EC:08 Rate is 72 beats/min. Rhythm is regular. QRS [place] is Normal. [place] interval is normal at kb 164 msec. QRS interval is normal at 94 msec. QT interval is normal at 433 msec. Administered Medications: 17:00 Drug: HYDROcodone-acetaminophen PO 5 mg-325 mg 1 tabs PO once Route: PO; ab3 17:40 Follow up: Pain 4/10 Adult; Response: No adverse reaction; Pain is decreased ab3 Disposition: 17:53 I was immediately available on-site in the Emergency Department for consultation in the mo3 care of the patient. Disposition Summary: 03/17/25 19:01 Hospitalization Ordered Notes: Hospitalization Status: Observation kb Provider: Gianluca Montgomery Location: Telemetry/MedSurg (observation) kb Condition: Stable kb Problem: new kb Symptoms: are unchanged kb Bed/Room Type: Standard kb Room Assignment: 414(03/17/25 21:30) kmf Diagnosis - Fall on same level, unspecified kb - Repeated falls kb - Unspecified injury of head, initial encounter kb - Weakness kb Forms: - Medication Reconciliation Form kb - SBAR form kb - Leadership Thank You Letter kb Signatures: Dispatcher [employer] EDMS Tonia Gonzalez, HUMANITIES INSTRUCTOR-C HUMANITIES INSTRUCTOR-Ckb Melodie Delgado, RN RN ss Clemente Spring, DO ms3 Lori Villegas kmf Jo Santos, RN RN ab3 Corrections: (The following items were deleted from the chart) 16:34 16:34 BASIC METABOLIC PANEL+C.LAB.BRZ ordered. EDMS EDMS 16:34 16:34 CBC+H.LAB.BRZ ordered. EDMS EDMS 16:34 16:34 HEPATIC FUNCTION+C.LAB.BRZ ordered. EDMS EDMS 16:34 16:34 MAGNESIUM+C.LAB.BRZ ordered. EDMS EDMS 16:34 16:34 Troponin High Sensitivity+C.LAB.BRZ ordered. EDMS EDMS 21:30 19:01 kb kmf
--- NOTE | 2025-03-17 19:01 | ER ---
Nurse's Notes [facility] Name: Seng Godfrey Age: 69 yrs Sex: Male : 1955 Arrival Date: 03/17/2025 Time: 16:25 Bed 7 Private MD: Diagnosis: Fall on same level, unspecified;Repeated falls;Unspecified injury of head, initial encounter;Weakness Presentation: 03/17 16:33 Chief complaint: Patient states: "I fell two days ago and I was holding my medication I ss just got filled and all the pills went everywhere and I couldn't find not a one!" Pt reports he lost all of his prescribed Ambien, [place] and Alprazolam 2 days ago. C/O chronic back pain. HX of degenerative disc disease. Pt also states, "I feel off balance and foggy since I fell.". Coronavirus screen: Client denies travel out of the [place] in the last 14 days. Ebola Screen: Patient denies exposure to infectious person. Patient denies travel to an Ebola-affected area in the 21 days before illness onset. Initial Sepsis Screen: Does the patient meet any 2 criteria? No. Patient's initial sepsis screen is negative. Does the patient have a suspected source of infection? No. Patient's initial sepsis screen is negative. Risk Assessment: Do you want to hurt yourself or someone else? Patient reports no desire to harm self or others. Onset of symptoms was March 15, 2025. 16:33 Method Of Arrival: EMS: [facility] 16:33 Acuity: MAU 3 ss Historical: - Allergies: 16:56 Talwin; ss - PMHx: 16:56 chronic back pain; ss - PSHx: 16:56 left arm; ss - Immunization history:: Adult Immunizations up to date. - Infectious Disease History:: Denies. - Social history:: Smoking status: Patient denies any tobacco usage or history of. Screenin:13 [facility] ED Fall Risk Assessment (Adult) History of falling in the last 3 months, ab3 including since admission Yes- single mechanical fall (1 pt) Confusion or Disorientation No (0 pts) Intoxicated or Sedated No (0 pts) Impaired Gait Yes (1 pt) Mobility Assist Device Used Yes (1 pt) Altered Elimination No (0 pt) Score/Fall Risk Level 3 or more points = High Risk Oriented to surroundings, Maintained a safe environment, Educated pt \\T\\ family on fall prevention, incl call for assistance when getting out of bed, Assessed \\T\\ reinforced patient's understanding of fall precautions, Hourly rounding (assess needs \\T\\ fall precautionary measures) done, Used ambulatory aids as needed (educated on \\T\\ assisted with), Apply high fall risk patient identification: yellow non skid footwear/ fall signage, Remained with patient while ambulating. Abuse screen: Denies threats or abuse. Denies injuries from another. Nutritional screening: No deficits noted. Tuberculosis screening: No symptoms or risk factors identified. Assessment: 16:55 General: Appears in no apparent distress. unkempt, Behavior is cooperative, Smells of ab3 urine. Reports fell yesterday and "dropped all prescriptions" including pain and anxiety medications and is requesting refills on all of them. Provider notified including MORENA and Dr. Meeks. Pain: Complains of pain in lumbar area, left low back and right low back Pain currently is 7 out of 10 on a pain scale. Quality of pain is described as. Neuro: No deficits noted. Reports weakness since 03/16/25. Cardiovascular: Denies lightheadedness, syncope, Heart tones S1 S2 present Capillary refill < 3 seconds JVD is absent Patient's skin is warm and dry. Pulses are all present. are 2+ in right radial artery, right dorsalis pedis artery, left radial artery, left dorsalis pedis artery, left carotid pulse and right carotid pulse Rhythm is regular Chest pain is denied. Respiratory: No deficits noted. GI: No deficits noted. Derm: Skin abrasion to L knee Skin is dry, Skin is pink, warm \\T\\ dry. Skin temperature is warm Wound noted left knee Wound is abrasion with swelling; no active bleeding. Musculoskeletal: Reports pain in back and left knee since 03/16/25. Pain is 7 out of 10 on a pain scale. Parent/caregiver report the patient having weakness in right leg and left leg. Injury Description: Abrasion sustained to left knee. 19:35 General: Appears unkempt, Behavior is cooperative, Smells of urine . ha1 19:35 Pain: Complains of pain in back Pain currently is 7 out of 10 on a pain scale. Quality ha1 of pain is described as aching. Neuro: Level of Consciousness is awake, alert, obeys commands, Oriented to person, place, time, situation. Cardiovascular: Capillary refill < 3 seconds Patient's skin is warm and dry. Respiratory: Airway is patent Respiratory effort is even, unlabored, Respiratory pattern is regular, symmetrical. GI: No signs and/or symptoms were reported involving the gastrointestinal system. Abdomen is round non-distended, obese. : No signs and/or symptoms were reported regarding the genitourinary system. Derm: Skin is dry, Skin is pink, warm \\T\\ dry. Musculoskeletal: Circulation, motion, and sensation intact. 20:30 Reassessment: Patient and/or family updated on plan of care and expected duration. Pain ha1 level reassessed. Patient is alert, oriented x 3, equal unlabored respirations, skin warm/dry/pink. 21:13 Reassessment: No changes from previously documented assessment. Patient is alert, cc6 oriented x 3, equal unlabored respirations, skin warm/dry/pink. 21:31 Reassessment: Patient and/or family updated on plan of care and expected duration. Pain ha1 level reassessed. Patient is alert, oriented x 3, equal unlabored respirations, skin warm/dry/pink. Vital Signs: 16:33 BP 130 / 69; Pulse 76; Resp 15; Temp 97.9(O); Pulse Ox 97% on R/A; Weight 114.31 kg; ss Height 5 ft. 8 in. ; Pain 6/10; 17:00 BP 121 / 65; Pulse 73; Resp 19; Pulse Ox 99% on R/A; ab3 17:40 Pain 4/10; ab3 17:50 BP 142 / 80; Pulse 66; Resp 20; Pulse Ox 97% on R/A; Pain 4/10; ab3 19:00 BP 139 / 79; Pulse 64; Resp 19; Pulse Ox 97% on R/A; ab3 21:13 BP 123 / 60; Pulse 59; Resp 18; Pulse Ox 95% on R/A; cc6 16:33 Body Mass Index 38.32 (114.31 kg, 172.72 cm) 16:33 Pain Scale: Adult ss 17:40 Pain Scale: Adult ab3 17:50 Pain Scale: Adult ab3 ED Course: 16:33 Patient arrived in ED. sb4 16:33 Tonia Gonzalez FNP-C is PHCP. kb 16:33 Clemente Spring DO is Attending Physician. kb 16:52 Chest Single View XRAY In Process Unspecified. EDMS 16:56 Triage completed. ss 16:56 Arm band placed on right wrist. ss 16:57 Jo Santos, RN is Primary Nurse. ab3 16:59 EKG done, by ED staff, reviewed by Tonia FLORES. ab3 17:05 Client placed on continuous cardiac and pulse oximetry monitoring. NIBP monitoring ab3 applied. court recording monitor on. Pulse ox on. NIBP on. 17:05 Patient has correct armband on for positive identification. Fall risk band placed. ab3 Placed in gown. Bed in low position. Call light in reach. Side rails up X2. Provided Education on: ER orientation and [id number]. Fall risk . 17:08 EKG done, by hvac/r service technician. reviewed by Jo Santos RN. ts3 17:08 Initial lab(s) drawn, by slab off mill tender, sent to lab. Inserted saline lock: 20 gauge in right ts3 antecubital area, using aseptic technique. Blood collected. Flushed with 10 mL NS. 17:14 No provider procedures requiring assistance completed. ab3 17:28 No apparent distress. Patient moved to CT. ab3 17:31 CT Head C Spine In Process Unspecified. EDMS 17:49 Patient moved back from CT. ab3 19:01 Gianluca Montgomery MD is Hospitalizing Provider. kb 19:09 Report given to SABINO Shea and SABINO Lombardo. ab3 19:10 Primary Nurse role handed off by Jo Santos RN ab3 19:32 Munira Sandhu RN is Primary Nurse. kd3 22:49 Patient admitted, IV remains in place. cc6 Administered Medications: 17:00 Drug: HYDROcodone-acetaminophen PO 5 mg-325 mg 1 tabs PO once Route: PO; ab3 17:40 Follow up: Pain 4/10 Adult; Response: No adverse reaction; Pain is decreased ab3 Medication: 17:15 VIS not applicable for this client. ab3 Outcome: 19:01 Decision to Hospitalize by Provider. kb 22:49 Admitted to Tele accompanied by nurse, via stretcher, with chart, cc6 22:49 Condition: stable 22:49 Instructed on the need for admit, 22:49 Patient left the ED. cc6 Signatures: Dispatcher [employer] EDTonia Oquendo, HUMAN FACTORS SCIENTIST-C HUMAN FACTORS SCIENTIST-Melodie Leonard, RN RN ss Munira Sandhu, RN RN kd3 Sabine Tesfaye, RN RN Ruthie Barahona, PASoledadC PA-C sb4 Jo Santos, RN RN ab3 Mariah Santiago, RN RN cc6 Doris Liu 3
--- NOTE | 2025-03-17 21:29 | P.HP ---
Certification for Inpatient Patient admitted to: Observation With expected LOS: <2 Midnights Patient will require the following post-hospital care: None Practitioner: I am a practitioner with admitting privileges, knowledge of patient current condition, hospital course, and medical plan of care. Services: Services provided to patient in accordance with Admission requirements found in Title 42 Section 412.3 of the Code of Federal Regulations Patient History Date of Service: 03/17/25 Reason for admission: Multiple falls, syncope, generalized body weakness. History of Present Illness: Patient is a [id number] male with past medical history of degenerative joint disease with bulging disc, chronic back pain, insomnia, chronic anxiety, brought to the ER after sustaining a mechanical fall at home secondary to syncope. Patient states he lost all of his medications, states while he was trying to look for his medications yesterday, states " he blacked out, and fell on the floor". Patient states he was able to recover and get off the floor, but he sustained a wound to his left knee when he fell. Patient states he has been extremely weak, and states he have had multiple falls most of them associated with syncope at home. Patient states he has frequent episodes of dizziness as well. Patient currently lives alone. States when he fell he did not hit his head. Patient is not currently taking any anticoag. Patient currently denies any pain in his joints, denies of any headache, dizziness, blurred vision, nausea or vomiting, chest pain, shortness of breath. Patient complains of back pain which is chronic. It is very concerning for patient multiple falls and syncope episodes that he has been having at home, will move forward to consult neurologist and also an MRI of the head. Course in ER. (1) CT brain without contrast. Impression: No evidence of acute intracranial abnormality. Left predominant paranasal sinus opacities, please correlate for signs and symptoms of acute sinusitis. (2) chest x-ray 1 view. Impression: No acute intrathoracic abnormalities. (3) ultrasound carotid artery bilateral. Impression: No hemodynamically significant stenosis (greater than 50%) within the extracranial internal carotid arteries. Allergies pentazocine [From Talwin] Allergy (Intermediate, Verified 03/10/23 20:11) Unknown Home Medications: ALPRAZolam [Alprazolam] 1 mg PO TID 03/10/23 Hydrocodone/Acetaminophen [Hydrocodon-Acetaminophn 10-325] 1 each PO Q6HP PRN 03/17/25 Meloxicam [Mobic] 7.5 mg PO DAILY 03/17/25 Sildenafil Citrate [Viagra] 100 mg PO DAILYPRN PRN 03/17/25 Zolpidem Tartrate [Ambien] 10 mg PO BEDTIME PRN PRN 03/17/25 - Past Medical/Surgical History -: chronic back pain -: degenerating/bulging disks -: Insomnia -: Anxiety -: cyst removal at sacrum - Family History Father -: Cancer - Social History Alcohol use: No CD- Drugs: No Caffeine use: Yes Place of Residence: Home Review of Systems 10-point ROS is otherwise unremarkable General: Weakness (Generalized weakness with multiple falls.), Other (Syncope) Integumentary: Other (Wound on left knee secondary to fall) Neurological: Weakness Physical Examination - Physical Exam General: Alert, In no apparent distress, Oriented x3, Cooperative HEENT: Normocephalic, PERRLA, Mucous membr. moist/pink, Sclerae nonicteric Neck: Supple, 2+ carotid pulse no bruit, JVD not distended, No Thyromegaly, No LAD, Without JVD or thyroid abnormality Respiratory: Clear to auscultation bilaterally, Normal air movement Cardiovascular: No edema, Normal pulses, Regular rate/rhythm, Normal S1 S2, No gallops, No rubs, No murmurs Capillary refill: <2 Seconds Gastrointestinal: Normal bowel sounds, Soft and benign, Non-distended, W/out hepatomegaly, No ascites, No tenderness, No masses, No rebound, No guarding Musculoskeletal: No clubbing, No swelling, No contractures, No erythema, No tenderness, No warmth Integumentary: No rashes, No breakdown, No significant lesion, No tenderness/swelling, No erythema, No warmth, No cyanosis Neurological: Normal gait, Normal speech, Normal tone, Sensation intact, Normal reflexes 2+, Normal affect, Other (Multiple falls at home and syncope.) Lymphatics: No axilla or inguinal lymphadenopathy - Studies Laboratory Data (last 24 hrs) 03/17/25 03/17/25 17:06 17:06 WBC 5.10 Hgb 13.1 L Hct 39.8 Plt Count 183 Sodium 145 Potassium 4.5 BUN 24 H Creatinine 1.16 Glucose 106 Magnesium 2.2 Total Bilirubin 0.3 AST 33 ALT 32 Alkaline Phosphatase 102 Male Exam - Male Exam Inguinal exam: No hernias, Inguinal lymph node Assessment and Plan - Plan Patient is a 69 years old male admitted to observation with diagnosis of syncope, multiple falls, generalized body weakness. (1)Syncope, multiple falls, generalized body weakness. -Order echocardiogram. -Order carotid ultrasound bilateral. -Order MRI of the brain with contrast. CT brain negative. -Consult physical therapy for endurance and strengthening. -Consult neurologist Dr. Gillespie. -IV NS at 100 mL/hr x 2 L. Patient with dry mucous membrane and appears dehydrated. (2)DVT prophylaxis. -Lovenox 40 mg subcu daily. (3)Explained the entire treatment plan to the patient, solicited questions answered and voiced understanding. Discharge Plan: Home Plan to discharge in: 48 Hours - Advance Directives Does patient have a Living Will: Yes Does patient have a Durable POA for Healthcare: No - Code Status/Comfort Care Code Status Assessed: Yes Code Status: Full Code Time Spent Managing Pts Care (In Minutes): 55
[2025-03-17 23:05] VITALS: BMI 38.0
[2025-03-17 23:10] VITALS: O2SAT 95
[2025-03-17] MEDS ORDERED: SILDENAFIL CITRATE 100 MG PO PRN (23:20)
[2025-03-17] MEDS: NA CHLORIDE 0.9% 1,000 ML IV SCH (23:26)
--- NOTE | 2025-03-17 23:28 | RAD REPORT ---
EXAM: US Carotid Artery Bilateral CLINICAL INDICATION: Syncope TECHNIQUE: Real-time grayscale, color flow, and spectral Doppler sonographic images were obtained of the extracranial carotid system using a linear transducer. Arterial peak systolic velocities are recorded as follows. COMPARISON: No prior exam. FINDINGS: RIGHT: Common carotid artery: 57 cm/s Internal carotid artery: 72 cm/s Right ICA/CCA ratio: 1.3 Plaque None External carotid artery: 42 cm/s Vertebral artery: Antegrade LEFT: Common carotid artery: 44 cm/s Internal carotid artery: 96 cm/s Left ICA/CCA ratio: 2.2 Plaque Mild External carotid artery: 41 cm/s Vertebral artery: Antegrade IMPRESSION: No hemodynamically significant stenosis (greater than 50%) within the extracranial internal carotid a rteries. The degrees of stenosis, if any, are quantified according to the consensus statement of the Society o f Radiologists in Ultrasound (SRUS). Please refer to Dewey E, Win C, Sabrina G et al. Carotid Artery Stenosis: Olivares-Scale and Doppler US Diagnosis--Society of Radiologists in Ultrasound Consensus Conference. Radiology. 2003;229(2):340-6. doi:10.1148/[id number]
[2025-03-17] MEDS ORDERED: ZOLPIDEM TARTRATE 10 MG PO SCH (23:45)
[2025-03-17] MEDS: ALPRAZOLAM 1 MG TABLET PO SCH (23:51)
[2025-03-17] MEDS: ZOLPIDEM TARTRATE 10 MG TABLET PO SCH (23:51)
[2025-03-17] MEDS: ACETAMINOPHEN 325 MG TABLET PO PRN (23:54)
[2025-03-18 05:29] LABS: Absolute Lymphocytes (CBC) 1.7 K/uL (0.7-4.9); Hematocrit 37.1 % (39.6-49.0); Hemoglobin 12.8 g/dL (13.6-17.9); MCH 31.2 pg (27.0-35.0); MCHC 34.5 g/dL (32.0-36.0); MCV 90.4 fL (80-100); MPV 9.0 fL (7.6-11.3); Nucleated RBC Absolute Count 0.0 (0-0); Nucleated Red Blood Cells % 0.1 % (0-0); RBC Red Blood Cell Count 4.10 M/uL (4.33-5.43); White Blood Count 5.30 thou/uL (4.3-10.9)
[2025-03-18 05:46] LABS: ALT/SGPT 31.0 U/L (16-61); AST/SGOT 30.0 U/L (15-37); Albumin 2.6 g/dL (3.4-5.0); Albumin/Globulin Ratio 0.8 (1.1-1.8); Alkaline Phosphatase 86.0 U/L (45-117); Anion Gap 7.0 mEq/L (5.0-15.0); BUN Blood Urea Nitrogen 21.0 mg/dL (7-18); Globulin 3.3 g/dL (2.3-3.5); Glucose Level 87.0 mg/dL (74-106); Magnesium 2.2 mg/dL (1.6-2.4); Potassium 4.0 mEq/L (3.5-5.1)
[2025-03-18] MEDS ORDERED: ALPRAZOLAM 1 MG TABLET PO SCH (09:00)
[2025-03-18] MEDS: ENOXAPARIN 40 MG/0.4 ML SQ SCH (09:07)
[2025-03-18] MEDS: MELOXICAM 7.5 MG TAB PO SCH (09:07)
[2025-03-18] MEDS: HYDROCODONE/APAP 10/325 TAB PO PRN (11:02)
[2025-03-18] MEDS: LORazepam 2 MG/ML VIAL IV ONE (13:10)
--- NOTE | 2025-03-18 14:16 | RAD REPORT ---
EXAMINATION: Brain W/Wo Cont CLINICAL INDICATION: Male, 69 years old. Multiple Falls, Weakness, Syncope TECHNIQUE: Multiplanar multisequence MR images of the brain were obtained with and without intravenou s contrast. Unless otherwise specified, incidental findings do not require dedicated imaging follow-up. [id number]. COMPARISON: 03/17/2025 FINDINGS: INTRACRANIAL: No acute infarct identified. No significant mass effect or midline shift.No hydrocepha adama. Mild chronic small vessel ischemic changes.Mild cerebral atrophy. No abnormal enhancement. Small cystic foci in the bilateral occipital lobes could reflect a remote infarcts though there is no surrounding gliosis. This is favored developmental and of no acute clinical significance. VASCULATURE: Normal signal voids in the larger intracranial arteries and dural venous sinuses. SINUSES: Opacified left maxillary and frontal sinuses as well as thickening at several of the left et hmoid air cells and the sphenoid sinus.No mastoid effusions. BONE: The marrow signal pattern is within normal limits. IMPRESSION: No acute intracranial abnormality. Specifically, no evidence of acute infarct. No abnormal enhancemen t.
--- NOTE | 2025-03-18 18:43 | P.PN ---
Subjective Date of Service: 03/18/25 Chief Complaint: Multiple falls, syncope, generalized body weakness. Patient is complaining of back pain. He denies any recent Orthostatic vitals checked today was positive. Physical Examination - Vital Signs Temperature: 98.3 F Blood Pressure: 114/56 Pulse: 59 Respirations: 18 Pulse Ox (%): 98 Assessment And Plan - Plan Physical examination General: Alert and oriented x3, NAD, obese. HEENT: Anicteric sclera Neck: Supple, no elevated JVD Heart: Heart sounds 1 and 2 normal, regular rhythm, normal rate, no pedal edema Lungs: Clear to auscultation bilaterally, adequate breath sounds bilaterally, no rhonchi or crackles. Abdomen: Soft, nondistended, nontender, normal bowel sounds. Extremities: No tenderness, no deformity Skin: Normal skin turgor, no rash, no nodules or ulcers. Neuro: No focal motor deficit. Normal speech. Psychiatry: Normal mood, no agitation. Diagnosis Syncope Multiple falls Orthostasis Chronic back pain Plan: Orthostatic positive Patient multiple falls could be related to orthostasis Continue to monitor orthostatic vitals Echocardiogram is pending MRI of the brain shows no acute disease Patient evaluated by physical therapy, she ambulated 250 ft IV NS Analgesics as needed for pain. DVT prophylaxis: Lovenox 40 mg subcu daily. Disposition: Home with home health.
[2025-03-18] MEDS ORDERED: ZOLPIDEM TARTRATE 12.5 MG PO SCH (21:00)
[2025-03-19 07:29] LABS: Absolute Lymphocytes (CBC) 1.9 K/uL (0.7-4.9); Hematocrit 37.0 % (39.6-49.0); Hemoglobin 12.7 g/dL (13.6-17.9); MCH 31.0 pg (27.0-35.0); MCHC 34.4 g/dL (32.0-36.0); MCV 90.2 fL (80-100); MPV 8.7 fL (7.6-11.3); Nucleated RBC Absolute Count 0.0 (0-0); Nucleated Red Blood Cells % 0.1 % (0-0); RBC Red Blood Cell Count 4.10 M/uL (4.33-5.43); White Blood Count 5.40 thou/uL (4.3-10.9)
[2025-03-19 07:52] LABS: ALT/SGPT 41.0 U/L (16-61); AST/SGOT 34.0 U/L (15-37); Albumin 2.9 g/dL (3.4-5.0); Albumin/Globulin Ratio 0.9 (1.1-1.8); Alkaline Phosphatase 90.0 U/L (45-117); Anion Gap 7.2 mEq/L (5.0-15.0); BUN Blood Urea Nitrogen 15.0 mg/dL (7-18); Globulin 3.1 g/dL (2.3-3.5); Glucose Level 88.0 mg/dL (74-106); Magnesium 2.0 mg/dL (1.6-2.4); Potassium 4.2 mEq/L (3.5-5.1)
[2025-03-19 09:07] LABS: Thyroid Stimulating Hormone 4.74 uIU/mL (0.358-3.740)
[2025-03-19 16:16] VITALS: BP 118/54; TEMP 97.9
--- NOTE | 2025-03-19 16:36 | P.DS ---
Admission Date: 03/19/25 Discharge Date: 03/19/25 Disposition: DC HOME/HOME HEALTH CARE Discharge Condition: FAIR Reason for Admission: Multiple falls, syncope, generalized body weakness. Brief History of Present Illness: [id number] male with past medical history of degenerative joint disease with bulging disc, chronic back pain, insomnia, chronic anxiety, brought to the ER after sustaining a mechanical fall at home secondary to syncope. Patient states he lost all of his medications, states while he was trying to look for his medications yesterday, states " he blacked out, and fell on the floor". Patient states he was able to recover and get off the floor, but he sustained a wound to his left knee when he fell. Patient reported frequent episodes of dizziness. Patient complains of back pain which is chronic. Patient was evaluated in the ED and CT brain without contrast showed no evidence of acute intracranial abnormality. Left predominant paranasal sinus opacities, chest x-ray showed no acute intrathoracic abnormalities. Ultrasound carotid artery bilateral showed no hemodynamically significant stenosis (greater than 50%) within the extracranial internal carotid arteries. Patient was hospitalized for further evaluation and management. Hospital Course: Diagnosis Syncope Multiple falls Orthostasis Chronic back pain Polypharmacy Patient hospitalized, hydrated with IV fluid. Orthostatic vitals checked was negative No arrhythmia on the orthodontic technician Echocardiogram done was unremarkable, it showed normal EF and no wall motion abnormality or significant valvular disease MRI of the brain showed no acute disease Patient evaluated by physical therapy and patient ambulated 300 ft with a rolling walker and standby assist. Home health for PT and Occupational Therapy recommended home health and ambulation with a walker. Patient dizziness and falls suspected to be related to polypharmacy. He takes multiple psychotropic medications including [place], Xanax and zolpidem. Zolpidem discontinued on discharge. Patient advised to avoid taking the [place] and Xanax at the same time. Home medications resumed on discharge. Vital Signs/Physical Exam: Temp Pulse Resp BP Pulse Ox 97.9 F 59 17 118/54 L 97 03/19/25 16:00 03/19/25 16:00 03/19/25 16:00 03/19/25 16:00 03/19/25 16:00 General: Alert, In no apparent distress, Oriented x3, Obese HEENT: Mucous membr. moist/pink, Sclerae nonicteric Neck: JVD not distended Respiratory: Clear to auscultation bilaterally, Normal air movement Cardiovascular: No edema, Regular rate/rhythm, Normal S1 S2 Gastrointestinal: Normal bowel sounds, Soft and benign, Non-distended, No tenderness Musculoskeletal: No swelling Integumentary: No rashes, No cyanosis Neurological: Normal speech, Normal strength at 5/5 x4 extr, Cranial nerves 3-12 intact Laboratory Data at Discharge: WBC 5.40 thou/uL (4.3-10.9) 03/19/25 06:38 Hgb 12.7 g/dL (13.6-17.9) L 03/19/25 06:38 Hct 37.0 % (39.6-49.0) L 03/19/25 06:38 Plt Count 179 thou/uL (152-406) 03/19/25 06:38 Sodium 140 mEq/L (136-145) D 03/19/25 06:38 Potassium 4.2 mEq/L (3.5-5.1) 03/19/25 06:38 BUN 15 mg/dL (7-18) 03/19/25 06:38 Creatinine 0.89 mg/dL (0.70-1.30) 03/19/25 06:38 Glucose 88 mg/dL (74-106) 03/19/25 06:38 Magnesium 2.0 mg/dL (1.6-2.4) 03/19/25 06:38 Total Bilirubin 0.3 mg/dL (0.2-1.0) 03/19/25 06:38 AST 34 U/L (15-37) 03/19/25 06:38 ALT 41 U/L (16-61) 03/19/25 06:38 Alkaline Phosphatase 90 U/L (45-117) 03/19/25 06:38 Home Medications: ALPRAZolam [Alprazolam] 1 mg PO TID 03/10/23 Meloxicam [Mobic*] 7.5 mg PO DAILY 03/17/25 Sildenafil Citrate [Viagra] 100 mg PO DAILYPRN PRN 03/17/25 Hydrocodone 10/APAP 325 [[place] 10/325*] 1 tab PO Q6H PRN #15 tab 03/19/25 New Medications: Hydrocodone 10/APAP 325 [[place] 10/325*] 1 tab PO Q6H PRN #15 tab PRN Reason: Pain Scale 5-7 (Moderate) Physician Discharge Instructions: Orthostatic precautions advised. When getting up from lying position, please sit for 3 to 4 minutes before you stand and walk. You may wear compression stockings and abdominal binders if you continue to experience dizziness with standing. Please ambulate with a walker at all times. Diet: AHA Activity: Fall precautions Followup: Eric Waite DO [ACTIVE - CAN ADMIT] - 1 Week Aron Gonzalez MD [Primary Care Provider] - 1-2 Weeks Time spent managing pt's care (in minutes): 37
== END 2025-03-19 18:20 | disposition home health service (06) | DRG 312 ==
LOC: ER 16:25 → 4TH 21:22 → OBSVTOIN 03-19 15:31
PROVIDERS: ADMIT Internal Medicine; ATTEND Internal Medicine
DX: R55 Syncope and collapse (principal); E86.0 Dehydration; F41.9 Anxiety disorder, unspecified; E66.9 Obesity, unspecified; G89.29 Other chronic pain; M54.9 Dorsalgia, unspecified; G47.00 Insomnia, unspecified; S09.90XA Unspecified injury of head, initial encounter; R29.6 Repeated falls; R42 Dizziness and giddiness; Z60.2 Problems related to living alone; Z91.81 History of falling; Z68.38 Body mass index [BMI] 38.0-38.9, adult; Y99.9 Unspecified external cause status; W18.30XA Fall on same level, unspecified, initial encounter; Y92.9 Unspecified place or not applicable; Y93.9 Activity, unspecified; T40.2X5A Adverse effect of other opioids, initial encounter; T42.4X5A Adverse effect of benzodiazepines, initial encounter; T42.6X5A Adverse effect of other antiepileptic and sedative-hypnotic drugs, initial encounter
CPT/HCPCS: 36415; 70450; 70553; 71045; 72125; 80048; 80053; 80076; 82533; 83735; 84439; 84443; 84484; 85025; 93005; 93306; 93880; 97116; 97161; 97530; 99285; A9577; G0378; J1650; J7030

== ENCOUNTER 2025-04-15 09:45 | Emergency (ER) | payer OTHER ==
--- NOTE | 2025-04-15 11:04 | RAD REPORT ---
EXAMINATION: ONE VIEW CHEST XR CLINICAL INDICATION: Rib Pain - Left;Trauma TECHNIQUE: Frontal chest projection is submitted. Examination is limited by patient positioning and t echnique. COMPARISON: 03/17/2025 FINDINGS: Mild bilateral pulmonary edema is suspected. The heart is upper limit of normal in size. No displaced fractures identified. IMPRESSION: Mild CHF versus volume overload pattern is suspected.
--- NOTE | 2025-04-15 11:04 | RAD REPORT ---
EXAMINATION: LEFT RIB SERIES INDICATION: PAIN COMPARISON: None TECHNIQUE: Frontal and multiple oblique views of the LEFT ribs. FINDINGS: No displaced rib fracture is identified. No suspicious focal osseous lesion.. IMPRESSION: Negative rib series..
--- NOTE | 2025-04-15 11:09 | EDPHYS ---
Physician Documentation [facility] Name: Seng Godfrey Age: 69 yrs Sex: Male : 1955 Arrival Date: 04/15/2025 Time: 09:45 Bed 11 Private MD: ED Physician Clemente Spring HPI: 04/15 11:10 This 69 yrs old Male presents to ER via Ambulatory with complaints of rib dr5 pain, Fall Injury, Painful breathing. 11:34 Patient is a 69-year-old male with history of chronic back pain coming in with fall dr5 that occurred 3 days ago landing on left side. Patient reports he has restless leg syndrome and thinks he shook himself out of the bed landing on his left side. Patient reports difficulty breathing with deep inhalation.. Historical: - Allergies: 10:11 Talwin; ph - PMHx: 10:11 chronic back pain; ph - PSHx: 10:11 left arm; ph - Immunization history:: Adult Immunizations unknown. - Infectious Disease History:: Denies. - Social history:: Smoking status: Patient reports the use of cigarette tobacco products, denies chronic smoking, but will smoke occasionally. ROS: 11:34 Constitutional: as per hpi dr5 Exam: 11:34 Constitutional: This is a well developed, well nourished patient who is awake, alert, dr5 and in no acute distress. Head/Face: Normocephalic, atraumatic. Eyes: Pupils equal round and reactive to light, extra-ocular motions intact. Lids and lashes normal. Conjunctiva and sclera are non-icteric and not injected. Cornea within normal limits. Periorbital areas with no swelling, redness, or edema. Neck: Trachea midline, no thyromegaly or masses palpated, and no cervical lymphadenopathy. Supple, full range of motion without nuchal rigidity, or vertebral point tenderness. No Meningismus. Chest/axilla: Normal chest wall appearance and motion. Nontender with no deformity. No lesions are appreciated. Cardiovascular: Regular rate and rhythm with a normal S1 and S2. Normal PMI, no JVD. No pulse deficits. Respiratory: Lungs have equal breath sounds bilaterally, clear to auscultation. No rales, rhonchi or wheezes noted. No increased work of breathing, no retractions or nasal flaring. Back: No spinal tenderness. No costovertebral tenderness. Full range of motion. Skin: Warm, dry with normal turgor. Normal color with no rashes, no lesions, and no evidence of cellulitis. Minimal bruising noted to left side. Mild tenderness to palpation. MS/ Extremity: Pulses equal, no cyanosis. Neurovascular intact. Full, normal range of motion. Neuro: Awake and alert, GCS 15, oriented to person, place, time, and situation. Cranial nerves II-XII grossly intact. Motor strength 5/5 in all extremities. Sensory grossly intact. Cerebellar exam normal. Normal gait. Vital Signs: 10:09 BP 159 / 81; Pulse 77; Resp 18; Temp 97.6; Pulse Ox 100% on R/A; Weight 112.49 kg; ph Height 5 ft. 8 in. ; 11:15 BP 142 / 78; Pulse 72; Resp 18; Temp 97.5; Pulse Ox 99% on R/A; ph 10:09 Body Mass Index 37.71 (112.49 kg, 172.72 cm) ph MDM: 09:49 Medical Screening Exam initiated dr5 11:34 Differential diagnosis: viral Infection, bacterial infection, Rib Fracture, dr5 Pneumothorax. Data reviewed: vital signs, nurses notes, radiologic studies, plain films. Consideration of Admission/Observation Escalation of care including admission/observation considered. Escalation considered patient found to have 3 more rib fractures. I considered the following discharge prescriptions or medication management in the emergency department I discussed and recommended Over The Counter medications, Medications were administered in the Emergency Department. See MAR. Independent interpretation of the following test(s) in the Emergency Department X-Ray: My interpretation is Independent Interpretation did not reveal rib fracture.. Care significantly affected by the following chronic conditions: Chronic Back Pain. Care significantly affected by the following Social Determinants of Health: Poor access to healthcare and/or lack of insurance, Poor access to transportation, Problems related to employment. Counseling: I had a detailed discussion with the patient and/or guardian regarding the historical points, exam findings, and any diagnostic results supporting the discharge/admit diagnosis, the presence of at least one elevated blood pressure reading (>120/80) during this emergency department visit, radiology results, the need for outpatient follow up, for definitive care, a orthopedic surgeon, to return to the emergency department if symptoms worsen or persist or if there are any questions or concerns that arise at home. Medication response: [place]. Response to treatment: the patient's symptoms have markedly improved after treatment. Special discussion: I discussed with the patient/guardian in detail that at this point there is no indication for admission to the hospital. It is understood, however, that if the symptoms persist or worsen the patient needs to return immediately for re-evaluation. Based on the history and exam findings, there is no indication for further emergent testing or inpatient evaluation. I discussed with the patient/guardian the need to see the orthopedic surgeon for further evaluation of the symptoms. ED course: Will have patient follow-up with orthopedics as needed. Toradol and [place] given in ER. Will give patient anti-inflammatories, steroid Dosepak, and muscle laxer's to take as needed. All questions answered. Strict ER precautions given. 04/15 10:09 Order name: Chest Single View XRAY; Complete Time: 11:08 dr5 04/15 10:09 Order name: Ribs Left XRAY; Complete Time: 11:08 dr5 Administered Medications: 11:18 Drug: Ketorolac IM 30 mg IM once Route: IM; Site: right deltoid; ph 11:18 Follow up: Response: No adverse reaction; Medication administered at discharge. ph 11:18 Drug: HYDROcodone-acetaminophen PO 5 mg-325 mg 1 tabs PO once Route: PO; ph 11:18 Follow up: Response: No adverse reaction; Medication administered at discharge. ph Disposition: 11:19 I was immediately available on-site in the Emergency Department for consultation in the ms3 care of the patient. Disposition Summary: 04/15/25 11:09 Discharge Ordered Notes: Location: Home dr5 Condition: Stable dr5 Diagnosis - Fall on same level, unspecified dr5 Followup: dr5 - With: Emergency Department - When: As needed - Reason: Worsening of condition Followup: dr5 - With: Private Physician - When: 1 - 2 days - Reason: Recheck today's complaints, Continuance of care, Re-evaluation by your physician Discharge Instructions: - Discharge Summary Sheet dr5 - Chest Wall Pain dr5 - Fall Prevention in the Home, Adult dr5 Forms: - Medication Reconciliation Form dr5 - Prescription Opioid Use dr5 - Patient Portal Instructions dr5 - Leadership Thank You Letter dr5 Prescriptions: - Ibuprofen 800 mg Oral Tablet - take 1 tablet ORAL route every 12 hours As needed take with food; 20 tablet; dr5 Refills: 0, Product Selection Permitted - Cyclobenzaprine 10 mg Oral Tablet - take 1 tablet ORAL route every 8 hours As needed; 30 tablet; Refills: 0, dr5 Product Selection Permitted - Medrol (Jose) 4 mg Oral Tablets, Dose Pack - take 1 tablet ORAL route as directed - follow package instructions; 1 packet; dr5 Refills: 0, Product Selection Permitted Signatures: Dispatcher [employer] Farrah Reaves, SABINO RN ph Spring, Clemente, DO ms3 Max De Souza, SHAYY-C LIVING NURSE-Cdr5 Corrections: (The following items were deleted from the chart) 10:09 10:09 Ribs Left+RAD.RAD.BRZ ordered. EDNJ EDMS
--- NOTE | 2025-04-15 11:09 | ER ---
Nurse's Notes [facility] Name: Seng Godfrey Age: 69 yrs Sex: Male : 1955 Arrival Date: 04/15/2025 Time: 09:45 Bed 11 Private MD: Diagnosis: Fall on same level, unspecified Presentation: 04/15 10:09 Chief complaint: Patient states: Fell from bed "a few days ago" landed on L side, c/o ph pain in L rib area, painful respirations. Green bruising to L side. Coronavirus screen: At this time, the client does not indicate any symptoms associated with coronavirus-19. Ebola Screen: No symptoms or risks identified at this time. Initial Sepsis Screen: Does the patient meet any 2 criteria? No. Patient's initial sepsis screen is negative. Does the patient have a suspected source of infection? No. Patient's initial sepsis screen is negative. Risk Assessment: Do you want to hurt yourself or someone else? Patient reports no desire to harm self or others. Onset of symptoms was April 15, 2025. 10:09 Method Of Arrival: Ambulatory ph 10:09 Acuity: MAU 4 ph Triage Assessment: 10:11 General: Appears in no apparent distress. uncomfortable, Behavior is calm, cooperative. ph Pain: Complains of pain in left lateral anterior chest. Neuro: Level of Consciousness is awake, alert, obeys commands, Oriented to person, place, time, situation. Cardiovascular: Capillary refill < 3 seconds in bilateral fingers. Respiratory: Reports pain with respiration Airway is patent Respiratory effort is even, unlabored, Respiratory pattern is regular, symmetrical. Derm: Skin is pink, warm \\T\\ dry. Bruising that is green, on left lateral anterior chest. Musculoskeletal: Circulation, motion, and sensation intact. Range of motion: intact in all extremities. Historical: - Allergies: 10:11 [place]; ph - PMHx: 10:11 chronic back pain; ph - PSHx: 10:11 left arm; ph - Immunization history:: Adult Immunizations unknown. - Infectious Disease History:: Denies. - Social history:: Smoking status: Patient reports the use of cigarette tobacco products, denies chronic smoking, but will smoke occasionally. Screenin:14 [facility] ED Fall Risk Assessment (Adult) History of falling in the last 3 months, bp including since admission No falls in past 3 months (0 pts) Confusion or Disorientation No (0 pts) Intoxicated or Sedated No (0 pts) Impaired Gait No (0 pts) Mobility Assist Device Used No (0 pt) Altered Elimination No (0 pt) Score/Fall Risk Level 0 - 2 = Low Risk Oriented to surroundings. Abuse screen: Denies threats or abuse. Denies injuries from another. Nutritional screening: No deficits noted. Tuberculosis screening: No symptoms or risk factors identified. 11:14 [facility] ED Fall Risk Assessment (Adult) History of falling in the last 3 months, ph including since admission Yes- single mechanical fall (1 pt) Confusion or Disorientation No (0 pts) Intoxicated or Sedated No (0 pts) Impaired Gait No (0 pts) Mobility Assist Device Used No (0 pt) Altered Elimination No (0 pt) Score/Fall Risk Level 0 - 2 = Low Risk Oriented to surroundings, Maintained a safe environment, Hourly rounding (assess needs \\T\\ fall precautionary measures) done. Abuse screen: Denies threats or abuse. Denies injuries from another. Nutritional screening: No deficits noted. Tuberculosis screening: No symptoms or risk factors identified. Assessment: 10:15 General: SEE TRIAGE NOTE. bp Vital Signs: 10:09 BP 159 / 81; Pulse 77; Resp 18; Temp 97.6; Pulse Ox 100% on R/A; Weight 112.49 kg; ph Height 5 ft. 8 in. ; 11:15 BP 142 / 78; Pulse 72; Resp 18; Temp 97.5; Pulse Ox 99% on R/A; ph 10:09 Body Mass Index 37.71 (112.49 kg, 172.72 cm) ph ED Course: 09:48 Patient arrived in ED. im 09:49 Max De Souza FNP-C is PHCP. dr5 09:49 Clemente Spring DO is Attending Physician. dr5 10:08 Quintin Floyd, RN is Primary Nurse. bp 10:11 Triage completed. ph 10:11 Arm band placed on Patient placed in an exam room, on a stretcher. ph 10:57 Chest Single View XRAY In Process Unspecified. EDMS 10:57 Ribs Left XRAY In Process Unspecified. EDMS 11:14 Patient has correct armband on for positive identification. bp 11:15 No provider procedures requiring assistance completed. Patient did not have IV access ph during this emergency room visit. Administered Medications: 11:18 Drug: Ketorolac IM 30 mg IM once Route: IM; Site: right deltoid; ph 11:18 Follow up: Response: No adverse reaction; Medication administered at discharge. ph 11:18 Drug: HYDROcodone-acetaminophen PO 5 mg-325 mg 1 tabs PO once Route: PO; ph 11:18 Follow up: Response: No adverse reaction; Medication administered at discharge. ph Medication: 11:14 VIS not applicable for this client. bp Outcome: 11:09 Discharge ordered by . dr5 11:14 Discharged to home ambulatory, bp 11:14 Condition: stable 11:14 Discharge instructions given to patient, Instructed on discharge instructions, follow up and referral plans. Demonstrated understanding of instructions, follow-up care, 11:15 Patient left the ED. bp Signatures: Dispatcher [employer] Farrah Reaves RN RN ph Peltier, Brian, RN RN bp Mendoza, Itzel im Rhodes, Dustin, LARD TUB WASHER-C LARD TUB WASHER-Cdr5
[2025-04-15] MEDS ORDERED: KETOROLAC 30 MG/ML INJ ONE (11:18)
[2025-04-15] MEDS ORDERED: HYDROCODONE/APAP 5/325 MG TAB ONE (11:19)
[2025-04-15 11:39] VITALS: BP 142/78; TEMP 97.5; O2SAT 99
== END 2025-04-15 11:15 | disposition home or self-care (01) ==
LOC: ER 09:45
DX: R07.1 Chest pain on breathing (principal); W06.XXXA Fall from bed, initial encounter; F17.210 Nicotine dependence, cigarettes, uncomplicated
CPT/HCPCS: 71045; 71100; 96372; 99284; J1885